=== PATIENT | male | born 1960 | race Caucasian/White ===

== ENCOUNTER 2019-05-29 11:07 | Emergency (ER) | payer MEDICARE, MEDICAID, SELFPAY ==
--- NOTE | ~2019-05-29 | XR_ITS ---
EXAMINATION: XR chest 1V portable INDICATION: Cough TECHNIQUE: Portable AP chest at 1140 hours COMPARISON: 05/16/2019 FINDINGS: A right upper extremity PICC ends in the midsuperior vena cava. There are minimal airspace opacities in the left lung base. No pleural effusion or pneumothorax is identified. The cardiomediast inal silhouette is stable. Suture anchors are noted in the bilateral glenoids. There are partially im aged surgical changes of the lumbar spine. IMPRESSION: 1. Left basilar airspace opacity, consistent with atelectasis versus pneumonia. 2. Right upper extremity PICC ending in the midsuperior vena cava. Reviewed, dictated and finalized at location B. 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
[2019-05-29 11:20] VITALS: BP 130/64; PULSE 80; RESP 18; TEMP 36.8; O2SAT 100
--- NOTE | 2019-05-29 11:20 | ED.GENADULT ---
HPI - General Adult General Chief complaint: Unspecified Stated complaint: abn lab Time Seen by Provider: 05/29/19 11:14 Source: patient Mode of arrival: ambulatory Limitations: no limitations History of Present Illness HPI narrative: Pt is a 58 y/o male who presents to the ED, secondary to abnormal labs. Pt states that he got a call from his nurse at [facility] stating that his creatinine was high and his WBC count was high and to come to the ED. He reports a cough and congestion, but denies SOB or fever. He has one kidney and he has a PICC line where he gets his TPN nightly. He states that all of his Physicians are at [place]. MD complaint: Abnormal labs Relieving factors: none Exacerbating factors: none Associated symptoms: cough and other (congestion) Treatments prior to arrival: none Related Data Allergies Allergy/AdvReac Type Severity Reaction Status Date / Time No Known Allergies Allergy Unverified 03/12/19 20:47 Review of Systems Review of Systems: All systems reviewed & are unremarkable except as noted in HPI and below Constitutional: Constitutional: Denies fever(s) Respiratory: Respiratory: Reports chest congestion, Reports cough and Denies dyspnea [facility] Past Medical History Medical History (Updated 05/29/19 @ 13:54 by Donal Liang DO) Anemia (Acute) Bowel obstruction (Acute) CAD (coronary artery disease) (Acute) Colorectal cancer (Acute) COPD (chronic obstructive pulmonary disease) (Acute) DVT (deep venous thrombosis) (Acute) Emphysema of lung (Acute) GI bleed (Acute) History of left above knee amputation (Acute) HLD (hyperlipidemia) (Acute) HTN (hypertension) (Acute) Peripheral neuropathy (Acute) Pneumonia (Acute) Prostate cancer (Acute) PVD (peripheral vascular disease) (Acute) Renal cancer (Acute) Right wrist fracture (Acute) Rotator cuff arthropathy of both shoulders (Acute) Seizure (Acute) Surgical History Surgical History (Updated 05/29/19 @ 11:40 by César Ayers) H/O bilateral cataract extraction (Acute) H/O ileostomy (Acute) H/O left nephrectomy (Acute) H/O right wrist surgery (Acute) History of cardiac catheterization (Acute) History of urethral stent (Acute) S/P PICC central line placement (Acute) Social History Social History (Updated 05/29/19 @ 11:41 by César Jarvis Smoking status: Never smoker Exam Narrative: Exam Narrative: APPEARANCE: No acute distress, nontoxic, resting in bed EYES: EOMI HEENT: Normocephalic, atraumatic, OMM RESPIRATORY: No respiratory distress Clear to auscultation bilaterally with no rhonchi wheezing or rales. CARDIOVASCULAR: Regular rate and rhythm without murmurs rubs or gallops. ABDOMINAL: Soft, nontender, nondistended, no rebound or guarding colostomy present MUSCULOSKELETAl: Moves all extremities. NEURO: Awake and alert. Following commands, speech normal, no focal deficits SKIN:: Warm, dry. No rashes lesions or abrasions PICC line right upper extremity with no signs of infection PSYCHIATRIC: Normal affect/mood, Course Course Emergency Course: Discussed with patient results of workup and diagnosis. Discussed need for follow-up with primary care, proper use of medication, and reasons to return to the emergency department. Patient understands and agrees to current treatment plan Consultations Consultation #1: Discussed case with Dr. Ramirez at [facility], pt had blood work on 05/2519 at 11:25AM that showed a creatinine of 2.3 and hemoglobin of 7.9. Believes the pt can be sent home on a Z-pack and to follow up as outpatient. Date: 05/29/19 Time: 13:42 Vital Signs Vital signs: Vital Signs Temperature 98.3 F 05/29/19 11:20 Pulse Rate 80 05/29/19 11:20 Respiratory Rate 18 05/29/19 11:20 Blood Pressure 130/64 05/29/19 11:20 Pulse Oximetry 100 05/29/19 11:20 Temperature 98.3 F 05/29/19 11:20 Pulse Rate 80 05/29/19 11:20 Respiratory Rate 18 05/29/19 11:20 Blood Pressure 130/64 05/29/19 11:20 P
[2019-05-29] MEDS: LACTATED RINGERS 1,000 ML 999 ML IV CONT (12:00)
[2019-05-29 12:13] LABS: Basophils Percent Auto 0.2 % (0.2-1.2); Eosinophils Absolute Auto 0.1 K/mm3 (0-0.3); Eosinophils Percent Auto 0.8 % (0-4.4); Hematocrit 23.9 % (42.0-52.0); Hemoglobin 7.6 g/dL (14.0-18.0); Immature Granulocyte Absolute 0.04 K/mm3 (0.00-0.031); Immature Granulocyte Percent A 0.4 % (0-0.5); Lymphocytes Absolute Auto 1.03 K/mm3 (0.9-3.2); Lymphocytes Percent Auto 10.6 % (18.3-44.2); Mean Corpuscular HGB Conc 31.8 g/dl (32-36); Mean Corpuscular Hemoglobin 27.1 pg (26-34); Mean Corpuscular Volume 85.4 fl (80-100); Mean Platelet Volume 9.8 fl (7.4-10.4); Monocytes Absolute Auto 0.5 K/mm3 (0.1-0.6); Monocytes Percent Auto 4.9 % (2.6-8.5); Neutrophils Absolute Auto 8.1 K/mm3 (1.3-6.7); Neutrophils Percent Auto 83.1 % (45.5-73.1); Platelet Count Result 289 k/mm3 (150-375); Red Cell Distribution Width 16.5 % (11.5-14.5); White Blood Count 9.7 K/mm3 (4.5-10.0)
[2019-05-29 12:23] LABS: Partial Thromboplastin Time 31.4 SECONDS (22.3-36.8); Prothrombin Time 12.8 Seconds (11.1-14.7)
[2019-05-29 12:35] LABS: Alanine Aminotransferase 13 U/L (4-50); Albumin Level 3.6 g/dL (3.5-5.1); Alkaline Phosphatase 72 U/L (38-126); Aspartate Amino Transferase 19 U/L (17-59); Bilirubin,Total 0.4 mg/dL (0.2-1.3); Blood Urea Nitrogen 35 mg/dL (9-20); Calcium 8.8 mg/dL (8.4-10.2); Carbon Dioxide 31 mmol/L (22-30); Chloride 98 mmol/L (98-107); Estimated CRCL calculation 36 ml/min; Estimated Glomerular Filt Rate 39; Glucose 103 mg/dL (75-110); Potassium 3.8 mmol/L (3.4-5.0); Sodium 136 mmol/L (137-145)
[2019-05-29 13:13] LABS: Add Urine Microscopic? YES; Appearance Urine Clear (Clear); Bilirubin Urine Negative (Negative); Blood Urine Negative (Negative); Color Urine Yellow (Yellow); Glucose Urine UA Negative (Negative); Ketones Urine Negative (Negative); Leukocyte Esterase Ur 1+ LEU/UL (Negative); Mucus Urine Rare /lpf; Nitrate Urine Negative (Negative); Protein Urine 2+ mg/dL (Negative); RBC Urine 0-2 /hpf (0-2); Specific Grav Ur 1.015 (1.001-1.035); WBC Urine 16-20
[2019-05-29] MEDS: AZITHROMYCIN 250 MG TABLET 500 MG PO (13:54)
[2019-05-29 14:01] VITALS: BP 137/75; PULSE 77; RESP 18; O2SAT 98
== END 2019-05-29 14:02 | disposition home or self-care (01) ==
PROVIDERS: Emergency Provider Emergency Medicine
DX: N28.9 Disorder of kidney and ureter, unspecified (principal); J18.9 Pneumonia, unspecified organism; D64.9 Anemia, unspecified; I25.10 Atherosclerotic heart disease of native coronary artery without angina pectoris; J44.0 Chronic obstructive pulmonary disease with (acute) lower respiratory infection; E78.5 Hyperlipidemia, unspecified; I10 Essential (primary) hypertension; G62.9 Polyneuropathy, unspecified; I73.9 Peripheral vascular disease, unspecified; Z90.5 Acquired absence of kidney
CPT/HCPCS: 36415; 71045; 80053; 81001; 85025; 85610; 85730; 87040; 87086; 96360; 99283; A9270; J7120

== ENCOUNTER 2019-07-30 15:16 | Emergency (ER) | payer MEDICARE, SELFPAY ==
--- NOTE | ~2019-07-30 | XR_ITS ---
EXAMINATION: XR chest 2V DATE: 07/30/2019 15:45 INDICATION: Cough. Decreased breath sounds on both sides. TECHNIQUE: Frontal and lateral views of the chest were obtained on 3 radiographs. COMPARISON: Chest single view 05/29/2019, CT abdomen and pelvis 05/29/2019 FINDINGS: There is mild scarring at the lung apices. A calcified right lung nodule is consistent with old granulomatous disease. No pleural effusion or pneumothorax. The heart size is normal. There is a right internal jugular central venous catheter with tip in right atrium. There are suture anchors in the scapulae bilaterally. There are changes of posterior fusion procedure in lumbar spine. There is a chronic burst fracture of L1. There are chronic compression fractures of T12 and L2. Partially visu alized is an internal ureteral stent. IMPRESSION: 1. Mild scarring at the lung apices. Reviewed, dictated and finalized at location A. ESSING SPEC
--- NOTE | 2019-07-30 15:20 | ED.GENADULT ---
HPI - General Adult General Chief complaint: Upper Respiratory Infection Stated complaint: cough/SOB Time Seen by Provider: 07/30/19 15:19 Source: patient Mode of arrival: ambulatory Limitations: no limitations History of Present Illness HPI narrative: 4-year-old male patient presents to the [facility] with complaints of cold symptoms for the past 3 to 4 days. Patient states he has had a cough coughing up some yellow mucus with some shortness of breath recently. Patient states he does take Advair daily and he has been using his albuterol inhaler for shortness of breath recently. Denies any fevers that he is aware of. Patient states that he does get pneumonia often and was already diagnosed with pneumonia twice this year. Patient states that his home health cares nurse came and checked on him and notified him that he probably needs to go get checked out and get a chest x-ray. Patient denies any runny nose ear pain sore throat. Denies any nausea vomiting or diarrhea. Related Data Home Medications Medication Instructions Recorded Confirmed amlodipine 5 mg DAILY 07/30/19 07/30/19 cyclobenzaprine 10 mg PO TID PRN 07/30/19 07/30/19 fluticasone propion-salmeterol 2 ea INHALATION DAILY 07/30/19 07/30/19 [Advair Diskus] gabapentin 300 mg TID 07/30/19 07/30/19 hydrocodone-acetaminophen 1 tablet 4-6XD PRN 07/30/19 07/30/19 prednisone 5 mg TID 07/30/19 07/30/19 tamsulosin 0.4 mg PO DAILY 07/30/19 07/30/19 Allergies Allergy/AdvReac Type Severity Reaction Status Date / Time No Known Allergies Allergy Verified 07/30/19 15:18 Review of Systems Review of Systems: Narrative: CONSTITUTIONAL: Denies fever, chills, or sweats. EYES: Denies visual changes, redness, or discharge. ENT: Denies rhinorrhea, congestion, sore throat, or otalgia. CARDIOVASCULAR: Denies chest pain, palpitations, or edema. RESPIRATORY: Positive productive cough with dyspnea. GASTROINTESTINAL: Denies abdominal pain, nausea, vomiting, or diarrhea. GENITOURINARY: Denies dysuria or hematuria. SKIN: Denies rash or itching. MUSCULOSKELETAL: Denies back pain, joint pain, or myalgia. NEUROLOGIC: Denies headache, numbness, or weakness. PSYCHIATRIC: Denies anxiety or depression. [facility] Past Medical History Medical History Anemia Anemia Bowel obstruction Bowel obstruction CAD (coronary artery disease) Chronic pain CKD (chronic kidney disease) Colorectal cancer Colorectal cancer COPD (chronic obstructive pulmonary disease) COPD (chronic obstructive pulmonary disease) DVT (deep venous thrombosis) Emphysema of lung Gangrene GI bleed History of left above knee amputation History of left above knee amputation HLD (hyperlipidemia) HTN (hypertension) 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 PAD (peripheral artery disease) Peripheral neuropathy Peripheral neuropathy Pneumonia Pneumonia Prostate CA Prostate cancer PVD (peripheral vascular disease) Renal cancer Renal cancer Right wrist fracture Rotator cuff arthropathy of both shoulders Seizure Seizure Short gut syndrome UTI (urinary tract infection) Surgical History Surgical History (Updated 05/31/19 @ 08:06 by Aimee Chavez) H/O bilateral cataract extraction H/O ileostomy H/O left nephrectomy H/O left nephrectomy H/O right wrist surgery H/O right wrist surgery H/O rotator cuff surgery History of back surgery History of cardiac catheterization History of cataract surgery History of colon resection History of urethral stent Hx of appendectomy Hx of cholecystectomy S/P PICC central line placement Social History Social History (System 05/31/19 @ 08:06 by Aimee Chavez) Smoking status: Current every day smoker Gender identity (if verbalized by the patient): Male Comments At the time of my signature I agree with nursing past medical history, surgical, social, and family history. There is no relevant family history pertinent
[2019-07-30 15:32] VITALS: BP 123/80; PULSE 96; RESP 18; TEMP 37.1; O2SAT 100
[2019-07-30 15:36] VITALS: PULSE 85; RESP 20; O2SAT 100
[2019-07-30] MEDS: ALBUTEROL SULFATE NEB 2.5 MG/3 ML INH INHALATION (15:43)
[2019-07-30] MEDS: IPRATROPIUM BR 0.02% INH SOLN 0.5 MG/2.5 ML VIAL INHALATION (15:44)
[2019-07-30 16:01] VITALS: PULSE 116; RESP 20; O2SAT 100
== END 2019-07-30 16:12 | disposition home or self-care (01) ==
PROVIDERS: Emergency Provider Nurse Practitioner Family
DX: J06.9 Acute upper respiratory infection, unspecified (principal); F17.200 Nicotine dependence, unspecified, uncomplicated; I25.10 Atherosclerotic heart disease of native coronary artery without angina pectoris; J44.9 Chronic obstructive pulmonary disease, unspecified; Z86.73 Personal history of transient ischemic attack (TIA), and cerebral infarction without residual deficits; E78.5 Hyperlipidemia, unspecified; I12.9 Hypertensive chronic kidney disease with stage 1 through stage 4 chronic kidney disease, or unspecified chronic kidney disease; N18.9 Chronic kidney disease, unspecified; Z85.038 Personal history of other malignant neoplasm of large intestine; Z85.46 Personal history of malignant neoplasm of prostate; Z85.53 Personal history of malignant neoplasm of renal pelvis; Z85.72 Personal history of non-Hodgkin lymphomas; K91.2 Postsurgical malabsorption, not elsewhere classified; I73.9 Peripheral vascular disease, unspecified; Z89.612 Acquired absence of left leg above knee
CPT/HCPCS: 71046; 94640; 99213; G0463

== ENCOUNTER 2020-01-09 16:11 | Emergency (ER) | payer MEDICARE, SELFPAY ==
[2020-01-09] VITALS (9 sets, daily range): BP systolic 72–116; BP diastolic 43–76; PULSE 71–89; RESP 17–25; TEMP 36.8–37.3; O2SAT 86–100
--- NOTE | ~2020-01-09 | XR_ITS ---
XR chest 1V portable 01/09/2020 16:37 Indication: Shortness of breath, weakness and lethargy. History of COPD. Procedure: AP portable chest Comparison: Comparison to multiple prior studies sequentially, with oldest reviewed study dated 02/25. Findings: Right IJ central venous catheter tip in the SVC. Heart size normal. Subtle interstitial dorothy nges of the right lung base. There is chronic right apical pleural thickening/scarring. No pleural ef fusion, edema or pneumothorax. Impression: 1: Subtle interstitial changes of the right lung base may represent atelectasis, scarring or less lik millicent developing pneumonia. Reviewed, dictated and finalized at location A. Impression: 1: Subtle interstitial changes of the right lung base may represent atelectasis , scarring or less likely developing pneumonia.
[2020-01-09 16:50] LABS: Hematocrit 23.6 % (42.0-52.0); Hemoglobin 7.6 g/dL (14.0-18.0); Mean Corpuscular HGB Conc 32.2 g/dl (32-36); Mean Corpuscular Hemoglobin 27.2 pg (26-34); Mean Corpuscular Volume 84.6 fl (80-100); Mean Platelet Volume 10.9 fl (7.4-10.4); Platelet Count Result 112 k/mm3 (150-375); Red Blood Count 2.79 M/mm3 (4.6-6.20); Red Cell Distribution Width 18.4 % (11.5-14.5); White Blood Count 14.9 K/mm3 (4.5-10.0)
--- NOTE | 2020-01-09 16:56 | ECG_ITS ---
Measurements Intervals Converse Rate: 89 P: 63 ND: 135 QRS: 79 QRSD: 98 T: 90 QT: 385 QTc: 468 Interpretive Statements SINUS RHYTHM INCOMPLETE RIGHT BUNDLE BRANCH BLOCK NONSPECIFIC T-WAVE ABNORMALITY- LATERAL LEADS BORDERLINE ECG Electronically Signed On 01-09-2020 18:20:49 CDT by Luis Enrique Madrigal D.O.
[2020-01-09] MEDS: SODIUM CHLORIDE 0.9% IV 1,000 ML 999 ML IV CONT ×2 (17:02→17:39)
[2020-01-09 17:04] LABS: Partial Thromboplastin Time 25.8 SECONDS (22.3-36.8)
[2020-01-09 17:06] LABS: Lactic Acid Reflex 1.7 mmol/L (0.7-2.1)
[2020-01-09 17:07] LABS: Alanine Aminotransferase 18 U/L (4-50); Albumin Level 2.6 g/dL (3.5-5.1); Alkaline Phosphatase 170 U/L (38-126); Aspartate Amino Transferase 24 U/L (17-59); Bilirubin,Total 0.5 mg/dL (0.2-1.3); Blood Urea Nitrogen 48 mg/dL (9-20); CRP 7.2 mg/dL (<1.0); Calcium 6.5 mg/dL (8.4-10.2); Carbon Dioxide 22 mmol/L (22-30); Chloride 103 mmol/L (98-107); Estimated Glomerular Filt Rate 26; Glucose 85 mg/dL (75-110); INR 1.2; Lipase 133 U/L (23-300); Prothrombin Time 14.9 Seconds (11.1-14.7); Sodium 133 mmol/L (137-145)
[2020-01-09 17:14] LABS: Anisocytosis 2+ (NORMAL); Band Neutrophils Percent 15 % (0-6); Lymphocytes Absolute Manual 0.29 K/mm3 (1.1-4.5); Monocytes Absolute Manual 0.29 K/mm3 (0.1-0.90); Monocytes Percent Manual 2 % (3-9); Neutrophils Percent Manual 81 % (46-73); Platelet Estimate Decreased (Adequate); Total Cells Counted 100
[2020-01-09 17:15] LABS: Hypochromasia 1+ (NORMAL)
--- NOTE | 2020-01-09 17:39 | ED.WEAKNESS ---
HPI - Weakness General Chief complaint: Weakness Stated complaint: WEAKNESS Time Seen by Provider: 01/09/20 16:14 History of Present Illness HPI Narrative: Patient is a 59-year-old male who presents the ER with weakness and shakiness. Shakiness began yesterday and ceased yesterday evening. It then increased today and he was markedly more weak. Reports he was ambulatory earlier in the day but not right now. Patient has history of colon cancer, he has a subclavian catheter present that he also receives TPN through him. Denies any fevers or chills at home. Reports he is currently on daptomycin and ceftriaxone for an unknown infection, reports these medicines on the med sheet are what he reports however there is also a prescription for Keflex on the chart. Patient and family had requested to go to [facility] however due to a blood pressure in the 70 systolic he must not feel comfortable with the transfer. Patient reports last night he began having a cough and continues have a cough at this time but has no dyspnea. Patient also reports emesis but denies any possible aspiration. Oncologist is Dr. You and Dr. Tsang. Related Data Home Medications Medication Instructions Recorded Confirmed amlodipine 5 mg DAILY 07/30/19 07/30/19 cyclobenzaprine 10 mg PO TID PRN 07/30/19 07/30/19 fluticasone propion-salmeterol 2 ea INHALATION DAILY 07/30/19 07/30/19 [Advair Diskus] gabapentin 300 mg TID 07/30/19 07/30/19 hydrocodone-acetaminophen 1 tablet 4-6XD PRN 07/30/19 07/30/19 prednisone 5 mg TID 07/30/19 07/30/19 tamsulosin 0.4 mg PO DAILY 07/30/19 07/30/19 alprazolam 01/09/20 01/09/20 cephalexin 01/09/20 prochlorperazine maleate 01/09/20 Allergies Allergy/AdvReac Type Severity Reaction Status Date / Time oxycodone AdvReac Agitated Verified 01/09/20 17:22 Review of Systems Review of Systems: All systems reviewed & are unremarkable except as noted in HPI and below Constitutional: Constitutional: Reports chills, Denies fever(s) and Reports weakness ENT: Denies nasal congestion and Denies sore throat Respiratory: Respiratory: Reports cough, Denies dyspnea and Denies wheezing Gastrointestinal: Gastrointestinal: Denies abdominal pain, Denies diarrhea, Reports nausea and Reports vomiting PMFSH Surgical History Surgical History (Updated 05/31/19 @ 08:06 by Aimee Chavez) H/O bilateral cataract extraction H/O ileostomy H/O left nephrectomy H/O left nephrectomy H/O right wrist surgery H/O right wrist surgery H/O rotator cuff surgery History of back surgery History of cardiac catheterization History of cataract surgery History of colon resection History of urethral stent Hx of appendectomy Hx of cholecystectomy S/P PICC central line placement Social History Social History (System 05/31/19 @ 08:06 by Aimee Chavez) Smoking status: Current every day smoker Gender identity (if verbalized by the patient): Male Exam Narrative: Exam Narrative: GENERAL: Ill-appearing, well-nourished, and in no acute distress. HEAD: Normocephalic, atraumatic. EYES: PERRL and EOMI. ENT: Mucous membranes moist. CHEST: Clear to auscultation. No respiratory distress. Right subclavian catheter present without evidence of surrounding infection. HEART: Regular rate and rhythm. Normal peripheral pulses. ABDOMEN: Soft, nontender, nondistended, ileostomy present in the left lower quadrant, palpable pain stimulator in the right lower quadrant. EXTREMITIES: Normal range of motion. No edema. Left AKA. SKIN: Warm, dry, no rash. NEURO: Alert and oriented x3. Course Reevaluation(s) Reevaluation #1: Blood pressure responding to IV fluid and patient feels better but blood pressure is not yet normalized. Discussed case with Gavin the nurse practitioner at [facility] in ICU. She has accepted the patient on behalf of Dr. Fritz. In the interim we will start the patient on vancomycin, give him IV calcium gluconate for his hyp
[2020-01-09 18:56] LABS: Add Urine Microscopic? YES; Amorphous Sediment Urine Few; Appearance Urine Clear (Clear); Bacteria Urine Trace /hpf; Bilirubin Urine Negative (Negative); Blood Urine 2+ (Negative); Color Urine Yellow (Yellow); Glucose Urine UA Negative (Negative); Ketones Urine Negative (Negative); Leukocyte Esterase Ur 3+ LEU/UL (Negative); Nitrate Urine Negative (Negative); Protein Urine 3+ mg/dL (Negative); Specific Grav Ur 1.015 (1.001-1.035); Squamous Epithelial Cell Urine Rare /hpf (Few); Urobilinogen Urine Negative mg/dL (<2.0); WBC Urine 16-20 /hpf
[2020-01-09] MEDS: CALCIUM GLUCONATE 1,000 MG/10 ML VIAL 1000 MG IV PUSH (18:57)
[2020-01-09] MEDS: NOREPINEPHRINE 8 MG/D5W 250 ML 8 MG/250 ML BAG 9.4 MG IV CONT (19:07)
[2020-01-09] MEDS: POTASSIUM CHLORIDE 20 MEQ PACKET (FOR LIQUID) 40 MEQ PO (19:27)
--- NOTE | 2020-01-09 20:16 | PC.NURSE ---
Spoke with [facility] transfer line patient accepted to room 7889
--- NOTE | 2020-01-09 20:18 | PC.NURSE ---
attempted to call nurse report, floor RN to call me back
--- NOTE | 2020-01-09 22:30 | PC.NURSE ---
Pt left by [facility] with levophed running
== END 2020-01-09 22:30 | disposition short-term general hospital (02) ==
PROVIDERS: Emergency Provider Emergency Medicine
DX: A41.9 Sepsis, unspecified organism (principal); E83.51 Hypocalcemia; E87.6 Hypokalemia; N17.9 Acute kidney failure, unspecified; N18.9 Chronic kidney disease, unspecified; I12.9 Hypertensive chronic kidney disease with stage 1 through stage 4 chronic kidney disease, or unspecified chronic kidney disease; I45.10 Unspecified right bundle-branch block; R94.31 Abnormal electrocardiogram [ECG] [EKG]; Z98.42 Cataract extraction status, left eye; Z98.41 Cataract extraction status, right eye; Z90.5 Acquired absence of kidney; Z90.49 Acquired absence of other specified parts of digestive tract; Z85.038 Personal history of other malignant neoplasm of large intestine; Z93.2 Ileostomy status; J43.9 Emphysema, unspecified; D64.9 Anemia, unspecified
CPT/HCPCS: 36415; 51701; 71045; 80053; 81001; 83605; 83690; 85025; 85610; 85730; 86140; 87040; 87077; 87086; 87186; 93005; 96361; 96365; 96366; 96367; 96375; 99291; A9270; J0610; J3370; J7030

== ENCOUNTER 2020-03-02 06:41 | Emergency (ER) | payer MEDICARE, SELFPAY ==
[2020-03-02] VITALS (18 sets, daily range): BP systolic 91–131; BP diastolic 58–106; PULSE 81–126; RESP 15–23; TEMP 36.4; O2SAT 93–100
--- NOTE | ~2020-03-02 | CT_ITS ---
EXAMINATION: CT abdomen pelvis wo con DATE: 03/02/2020 08:46 INDICATION: Abdominal pain. Vomiting. TECHNIQUE: Computed tomography (CT) of the abdomen and pelvis was performed without intravenous contr ast. Automated exposure control and iterative reconstruction technique were employed. The dose-length product was 975.20 mGy-cm. COMPARISON: CT abdomen and pelvis 01/26/2019, chest 2 views 07/30/2019 FINDINGS: The visualized portions of the lung bases demonstrate mild atelectasis. No pleural effusion . The heart size is normal. There are coronary artery calcifications. No pericardial effusion. There is diffuse hepatic steatosis. There are changes of cholecystectomy. Calcifications in the spleen are consistent with old granulomatous disease. The pancreas and adrenal glands and right kidney are edita l. There is a right internal ureteral stent in expected position. There is severe atrophy of left kid nohemy. There are changes of partial colectomy. There is an ostomy in left abdomen. There are no dilated loops of bowel. The appendix is not visualized. There are no pathologically enlarged lymph nodes. Th ere is no free intraperitoneal fluid. An intrathecal catheter is noted. There are changes of posterio r fusion procedures at L1-L2 and L5-S1 with pedicle screws. There is a chronic compression fracture o f T12. There are chronic burst fractures of L1 and L2. There is a burst fracture of T10 with 1/5 loss of height. IMPRESSION: 1. Diffuse hepatic steatosis. 2. Right internal ureteral stent in expected position. 3. Severe atrophy of left kidney. 4. Age indeterminant burst fracture of T10, new from 07/30/2019. Reviewed, dictated and finalized at location A.
--- NOTE | ~2020-03-02 | CT_ITS ---
EXAMINATION: CT cervical spine wo con DATE: 03/02/2020 08:46 INDICATION: Neck pain TECHNIQUE: Computed tomography (CT) of the cervical spine was performed without intravenous contrast. The dose-length product (DLP) was 408.52 mGy-cm. Automated exposure control and iterative reconstruc tion technique were employed. COMPARISON: None FINDINGS: There is no fracture. There are 2 mm of retrolisthesis of C5 on C6. There is moderate loss of intervertebral disc space height at C5-6, C6-7, and C7-T1. The odontoid is intact. The vertebral b gay heights are maintained. Degenerative osteophytes project from the anterior endplates of multiple vertebral bodies. There is a moderate facet and uncovertebral joint osteoarthritis of the lower cervi jaime spine. Prevertebral soft tissues are normal. Calcified atherosclerosis is noted. IMPRESSION: 1. Moderate cervical spondylosis without acute findings. Reviewed, dictated and finalized at location A.
--- NOTE | ~2020-03-02 | XR_ITS ---
EXAMINATION: XR chest 1V portable INDICATION: Assess position of pre-existing central line TECHNIQUE: Portable AP chest at 0725 hours COMPARISON: 01/09/2020 FINDINGS: A right internal jugular central venous catheter ends with its tip in the distal superior v sarah cava. The lungs are free of acute opacities. There is no pleural effusion or pneumothorax. Surgic al changes are noted in the left upper quadrant. There are also partially imaged changes of lumbar fu jyoti. IMPRESSION: 1. Right internal jugular central venous catheter ending with its tip in the distal superior vena cav a. 2. No acute cardiopulmonary abnormality. Reviewed, dictated and finalized at location A. IMPRESSION: 1. Right internal jugular central venous catheter ending with its tip in the di stal superior vena cava. 2. No acute cardiopulmonary abnormality.
--- NOTE | 2020-03-02 07:03 | ED.NAVMDI ---
HPI - Nausea/Vomiting/Diarrhea General Chief complaint: Nausea/Vomiting/Diarrhea Stated complaint: blocked ostomy bag Time Seen by Provider: 03/02/20 07:02 Source: patient and EMS Mode of arrival: EMS Limitations: no limitations History of Present Illness HPI Narrative: Patient is a 59-year-old male with a history of colon cancer who presents for evaluation of abdominal pain. Patient reports generalized, cramping abdominal pain throughout his middle abdomen, radiating to both sides. He denies back pain. He reports initially he thought that his ostomy may be clogged, but has had diarrhea like output through the ostomy over the past 12 hours. He reports some mild abdominal distention. Patient denies any fever, cough or shortness of breath. He states he feels diffusely weak. He denies any chest pain. No palpitations. Patient receives TPN and chemotherapy at [facility], he was last hospitalized a month ago for hypokalemia and renal failure per chart review. Pt oncology team Dr. Hayes and Dr. Tsang. Related Data Home Medications Medication Instructions Recorded Confirmed amlodipine 5 mg DAILY 07/30/19 07/30/19 cyclobenzaprine 10 mg PO TID PRN 07/30/19 07/30/19 fluticasone propion-salmeterol 2 ea INHALATION DAILY 07/30/19 07/30/19 [Advair Diskus] gabapentin 300 mg TID 07/30/19 07/30/19 hydrocodone-acetaminophen 1 tablet 4-6XD PRN 07/30/19 07/30/19 prednisone 5 mg TID 07/30/19 07/30/19 tamsulosin 0.4 mg PO DAILY 07/30/19 07/30/19 alprazolam 01/09/20 01/09/20 cephalexin 01/09/20 prochlorperazine maleate 01/09/20 Allergies Allergy/AdvReac Type Severity Reaction Status Date / Time oxycodone AdvReac Agitated Verified 03/02/20 07:03 Review of Systems Review of Systems: Narrative: CONSTITUTIONAL: Denies fever chills EYES: Denies visual changes, redness, or discharge. ENT: Denies rhinorrhea, congestion, sore throat, or otalgia. CARDIOVASCULAR: Denies chest pain, palpitations, or edema. RESPIRATORY: Denies cough or dyspnea. GASTROINTESTINAL: Reports abdominal pain, nausea, vomiting and diarrhea GENITOURINARY: Denies dysuria or hematuria. SKIN: Denies rash or itching. MUSCULOSKELETAL: Denies back pain, joint pain, or myalgia. NEUROLOGIC: Denies headache, numbness, reports feeling diffusely weak. 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 PAD (peripheral artery disease) Peripheral neuropathy Peripheral neuropathy Pneumonia Pneumonia Prostate CA Prostate cancer PVD (peripheral vascular disease) Renal cancer Renal cancer Right wrist fracture Rotator cuff arthropathy of both shoulders Seizure Seizure Short gut syndrome UTI (urinary tract infection) Surgical History Surgical History H/O bilateral cataract extraction H/O ileostomy H/O left nephrectomy H/O left nephrectomy H/O right wrist surgery H/O right wrist surgery H/O rotator cuff surgery History of back surgery History of cardiac catheterization History of cataract surgery History of colon resection History of urethral stent Hx of appendectomy Hx of cholecystectomy S/P PICC central line placement Social History Social History Smoking status: Current every day smoker Gender identity (if verbalized by the patient): Male Exam Narrative: Exam Narrative: GENERAL: Awake, alert, chronically ill-appea
--- NOTE | 2020-03-02 07:09 | PC.NURSE ---
ASSUMED CARE FROM CARMEN BA AT THIS TIME.
--- NOTE | 2020-03-02 07:17 | PC.NURSE ---
VERBAL ORDER FOR LACTIC AND CULTURES TO BE ADDED ON W/ CHEST XRAY TO CHECK CENTRAL LINE PLACEMENT PRIOR TO BLOOD DRAW.
--- NOTE | 2020-03-02 07:21 | PC.NURSE ---
SPOKE WITH CAROL FROM RADIOLOGY WHO STATES THEY WILL BE DOWN TO SCAN PT CHEST SUKHDEV.
--- NOTE | 2020-03-02 07:24 | PC.NURSE ---
RADIOLOGY AT BEDSIDE.
--- NOTE | 2020-03-02 07:32 | PC.NURSE ---
VERBAL ORDER FROM ERP BERTELS TO UTILIZE CENTRAL LINE.
[2020-03-02] MEDS: ONDANSETRON INJ 4 MG/2 ML VIAL IV PUSH ×2 (07:45→14:08)
[2020-03-02] MEDS: SODIUM CHLORIDE 0.9% IV 1,000 ML 999 ML IV CONT (07:45)
--- NOTE | 2020-03-02 07:47 | PC.NURSE ---
pt reminded of need for urine sample, verbalized that he will attempt to give one, urinal at bedside, refusing cath at this time.
[2020-03-02 07:56] LABS: Basophils Absolute Auto 0.1 K/mm3 (0.0-0.1); Basophils Percent Auto 0.4 % (0.2-1.2); Eosinophils Absolute Auto 0.3 K/mm3 (0-0.3); Eosinophils Percent Auto 1.8 % (0-4.4); Hemoglobin 11.8 g/dL (14.0-18.0); Immature Granulocyte Percent A 0.7 % (0-0.5); Lymphocytes Absolute Auto 3.07 K/mm3 (0.9-3.2); Mean Corpuscular HGB Conc 32.8 g/dl (32-36); Mean Corpuscular Hemoglobin 27.9 pg (26-34); Mean Corpuscular Volume 85.1 fl (80-100); Mean Platelet Volume 10.8 fl (7.4-10.4); Monocytes Absolute Auto 1.1 K/mm3 (0.1-0.6); Monocytes Percent Auto 7.2 % (2.6-8.5); Neutrophils Absolute Auto 10.7 K/mm3 (1.3-6.7); Neutrophils Percent Auto 69.9 % (45.5-73.1); Platelet Count Result 278 k/mm3 (150-375); Red Blood Count 4.23 M/mm3 (4.6-6.20); Red Cell Distribution Width 19.4 % (11.5-14.5); White Blood Count 15.3 K/mm3 (4.5-10.0)
--- NOTE | 2020-03-02 08:00 | PC.NURSE ---
pt unable to provide specimen, agrees to straight cath at this time.
[2020-03-02 08:09] LABS: Alanine Aminotransferase 48 U/L (4-50); Alkaline Phosphatase 130 U/L (38-126); Anion Gap 11 mmol/L (8-16); Aspartate Amino Transferase 48 U/L (17-59); Bilirubin,Total 0.7 mg/dL (0.2-1.3); Blood Urea Nitrogen 56 mg/dL (9-20); Calcium 9.4 mg/dL (8.4-10.2); Carbon Dioxide 27 mmol/L (22-30); Chloride 96 mmol/L (98-107); Estimated CRCL calculation 18 ml/min; Estimated Glomerular Filt Rate 15; Glucose 151 mg/dL (75-110); Lactic Acid Reflex 1.8 mmol/L (0.7-2.1); Lipase 131 U/L (23-300); Potassium 3.8 mmol/L (3.4-5.0); Sodium 134 mmol/L (137-145)
[2020-03-02 09:09] LABS: Add Urine Microscopic? YES; Appearance Urine Cloudy (Clear); Bacteria Urine 3+ /hpf; Bilirubin Urine Negative (Negative); Blood Urine 2+ (Negative); Color Urine Amber (Yellow); Glucose Urine UA Negative (Negative); Ketones Urine Negative (Negative); Leukocyte Esterase Ur 2+ LEU/UL (Negative); Nitrate Urine Negative (Negative); Protein Urine 3+ mg/dL (Negative); RBC Urine 21-50 /hpf (0-2); Specific Grav Ur 1.026 (1.001-1.035); Squamous Epithelial Cell Urine Occasional /hpf (Few); Urobilinogen Urine Negative mg/dL (<2.0); WBC Urine 31-50 /hpf
--- NOTE | 2020-03-02 10:21 | PC.NURSE ---
VERBAL OKAY PER ERP BERTELS TO GIVE PT ICE CHIPS.
--- NOTE | 2020-03-02 10:23 | PC.NURSE ---
SPOKE WITH ROB SANCHES ABOUT NOREPINEPHRINE ORDER, ERP STATES MED CAN GO THROUGH PT CENTRAL LINE ACCESS.
[2020-03-02] MEDS: NOREPINEPHRINE 8 MG/D5W 250 ML 8 MG/250 ML BAG 9.4 MG IV CONT (10:35)
--- NOTE | 2020-03-02 11:10 | PC.NURSE ---
ERP INFORMED THAT PT IS C/O INCREASING PAIN, VERBAL ORDER FOR 0.5 MG DILAUDID IVP STAT, STATES SHE WILL TRY AND COME IN TO SEE PT SUKHDEV.
[2020-03-02] MEDS: LINEZOLID 600 MG/300 ML 600 MG/300 ML SOLN 300 MG IVPB (15:18)
--- NOTE | 2020-03-02 15:43 | PC.NURSE ---
spoke with [facility] transfer line, awaiting room number at this time.
[2020-03-02] MEDS: SODIUM CHLORIDE 0.9% IV 1,000 ML 150 ML IV CONT (16:41)
--- NOTE | 2020-03-02 17:56 | PC.NURSE ---
SPOKE WITH ROB SANCHES ABOUT FEEDING PT, STATES THAT PT CAN HAVE JELLO AT THIS TIME, AND WE CAN SEE HOW HE DOES. PT PROVIDED JELLO.
--- NOTE | 2020-03-02 18:30 | PC.NURSE ---
PT HR NOTED TO BE 120-130, ERP BERTELS AWARE, VERBAL ORDER TO D/C THE LEVOPHED. PT A&OX3, NO COMPLAINTS.
== END 2020-03-02 18:57 | disposition short-term general hospital (02) ==
PROVIDERS: Emergency Provider Emergency Medicine
DX: C18.9 Malignant neoplasm of colon, unspecified (principal); N39.0 Urinary tract infection, site not specified; N17.9 Acute kidney failure, unspecified; S22.001A Stable burst fracture of unspecified thoracic vertebra, initial encounter for closed fracture; I12.9 Hypertensive chronic kidney disease with stage 1 through stage 4 chronic kidney disease, or unspecified chronic kidney disease; N18.9 Chronic kidney disease, unspecified; D64.9 Anemia, unspecified; J43.9 Emphysema, unspecified; I25.10 Atherosclerotic heart disease of native coronary artery without angina pectoris; Z89.612 Acquired absence of left leg above knee; E78.5 Hyperlipidemia, unspecified; Z93.2 Ileostomy status; I73.9 Peripheral vascular disease, unspecified; Z85.46 Personal history of malignant neoplasm of prostate; Z85.528 Personal history of other malignant neoplasm of kidney; Z87.440 Personal history of urinary (tract) infections; M47.812 Spondylosis without myelopathy or radiculopathy, cervical region; K76.0 Fatty (change of) liver, not elsewhere classified; X58.XXXA Exposure to other specified factors, initial encounter
CPT/HCPCS: 36415; 71045; 72125; 74176; 80053; 81001; 83605; 83690; 85025; 87040; 87086; 87088; 96361; 96365; 96366; 96367; 96368; 96375; 96376; 99291; J0692; J0696; J1170; J2020; J2405; J7030

== ENCOUNTER 2020-05-01 15:14 | Emergency (ER) | payer MEDICARE, SELFPAY ==
--- NOTE | ~2020-05-01 | CT_ITS ---
EXAMINATION: CT abdomen pelvis wo con DATE: 05/01/2020 20:13 INDICATION: Abdomen pain and vomiting TECHNIQUE: Computed tomography (CT) of the abdomen and pelvis was performed without intravenous contr ast. The dose-length product was 934.46 mGy-cm. Automated exposure control and iterative reconstructi on technique were employed. COMPARISON: CT dated 03/02/2020. FINDINGS: There are multiple fluid-filled distended small bowel loops in the abdomen and pelvis witho ut definitive transition point. There is a right internal ureteral stent in expected position. Lung bases are unremarkable. No pleural or pericardial effusion. Heart size normal. There are changes of cholecystectomy. Hepatomegaly. Calcifications in the spleen, consistent with chronic granulomatou s disease. There are changes of partial colectomy. There is an ostomy in the left abdomen. There are changes of posterior fusion at L1-2 L5-S1 with chronic compression fracture of T12 burst fracture of L1 and L2. There is a burst fracture of T10 partially visualized. There is a 3 cm infrarenal abdomina l aortic aneurysm. Extensive atherosclerosis. There is severe atrophy of the left kidney with coarse calcifications IMPRESSION: 1. Multiple fluid-filled distended small bowel loops of the abdomen and pelvis without definitive tra nsition point, most likely ileus. Partial obstruction less favored. 2: Hepatomegaly. Reviewed, dictated and finalized at location A. IMPRESSION: 1. Multiple fluid-filled distended small bowel loops of the abdomen and pelvis without definitive transition point, most likely ileus. Partial obstruction les s favored. 2: Hepatomegaly.
[2020-05-01 15:17] VITALS: BP 161/85; PULSE 95; RESP 18; TEMP 36.5; O2SAT 100
--- NOTE | 2020-05-01 15:24 | PC.NURSE ---
Patient states that he has two ports in his upper chest, patient declines blood draw in triage at this time.
--- NOTE | 2020-05-01 16:48 | PC.NURSE ---
Pt on phone with , on speaker, able to hear state chest tell them you have chest pain, they have to get you right back! That's ridiculous that you wait when you come by ambulance . Again explained to patient that the rooms are assigned by illness and sickest get evaluated first. This RN asked patient if he had chest pain and pt denies chest pain. Noted to be drinking water. Explained if patient feels he has a bowel obstruction that he shouldn't be drinking fluids.
--- NOTE | 2020-05-01 17:10 | PC.NURSE ---
Pt complaining loudly I'm going to fall, my back is killing me, I'm dizzy . Security immediately over to stand by the patient for safety. Pt brought to triage and EKG done. Pt states he is unable to sit any longer because his back is hurting and requests to stay in the triage chair. Explained that this is not reasonable due to multiple people in and out. Offered family services room and after EKG reviewed pt to family services room couch to lie down.
--- NOTE | 2020-05-01 17:11 | ECG_ITS ---
Measurements Intervals [place] Rate: 89 P: 73 OK: 155 QRS: 84 QRSD: 98 T: 133 QT: 387 QTc: 473 Interpretive Statements SINUS RHYTHM POSSIBLE LEFT ATRIAL ENLARGEMENT INCOMPLETE RIGHT BUNDLE BRANCH BLOCK DELAYED PRECORDIAL R/S TRANSITION BORDERLINE ST-T WAVE ABNORMALITY- DIFFUSE LEADS BASELINE ARTIFACT- I, III, AVR, AVL, V6 BORDERLINE ECG Electronically Signed On 05-01-2020 19:10:50 CDT by Luis Enrique Madrigal D.O.
--- NOTE | 2020-05-01 17:11 | PC.NURSE ---
Patient notified this RN that he was feeling dizzy, EKG ordered and completed in triage at this time.
[2020-05-01 17:20] VITALS: BP 158/79; PULSE 98; RESP 22; O2SAT 99
[2020-05-01 19:16] VITALS: BP 144/71; PULSE 90; RESP 20; O2SAT 99
[2020-05-01 19:31] LABS: Basophils Absolute Auto 0.1 K/mm3 (0.0-0.1); Basophils Percent Auto 0.7 % (0.2-1.2); Eosinophils Absolute Auto 0.5 K/mm3 (0-0.3); Eosinophils Percent Auto 5.2 % (0-4.4); Hematocrit 35.1 % (42.0-52.0); Hemoglobin 11.3 g/dL (14.0-18.0); Immature Granulocyte Absolute 0.04 K/mm3 (0.00-0.031); Immature Granulocyte Percent A 0.5 % (0-0.5); Lymphocytes Absolute Auto 2.04 K/mm3 (0.9-3.2); Mean Corpuscular HGB Conc 32.2 g/dl (32-36); Mean Corpuscular Hemoglobin 26.8 pg (26-34); Mean Corpuscular Volume 83.2 fl (80-100); Mean Platelet Volume 9.6 fl (7.4-10.4); Monocytes Percent Auto 11.5 % (2.6-8.5); Neutrophils Absolute Auto 5.3 K/mm3 (1.3-6.7); Neutrophils Percent Auto 59.1 % (45.5-73.1); Platelet Count Result 299 k/mm3 (150-375); Red Blood Count 4.22 M/mm3 (4.6-6.20); Red Cell Distribution Width 16.4 % (11.5-14.5); White Blood Count 8.9 K/mm3 (4.5-10.0)
[2020-05-01 19:43] LABS: Alanine Aminotransferase 41 U/L (4-50); Albumin Level 4.3 g/dL (3.5-5.1); Alkaline Phosphatase 103 U/L (38-126); Anion Gap 12 mmol/L (8-16); Aspartate Amino Transferase 44 U/L (17-59); Bilirubin,Total 0.5 mg/dL (0.2-1.3); Blood Urea Nitrogen 42 mg/dL (9-20); Carbon Dioxide 34 mmol/L (22-30); Chloride 96 mmol/L (98-107); Estimated CRCL calculation 28 ml/min; Estimated Glomerular Filt Rate 23; Glucose 118 mg/dL (75-110); Lipase 157 U/L (23-300); Potassium 3.4 mmol/L (3.4-5.0); Sodium 142 mmol/L (137-145)
[2020-05-01] MEDS: PROMETHAZINE HCL 25 MG/ML AMPUL 12.5 MG IV PUSH (20:03)
[2020-05-01] MEDS: SODIUM CHLORIDE 0.9% IV 1,000 ML 999 ML IV CONT (20:03)
[2020-05-01] MEDS: fentaNYL CITRATE INJ (*CRX) 100 MCG/2 ML VIAL 50 MCG IV PUSH (20:03)
[2020-05-01 21:17] VITALS: BP 143/85; PULSE 86; RESP 18; O2SAT 98
--- NOTE | 2020-05-01 21:22 | ED.NAVMDI ---
HPI - Nausea/Vomiting/Diarrhea General Chief complaint: Nausea/Vomiting/Diarrhea Stated complaint: n/v/weakness Time Seen by Provider: 05/01/20 19:25 History of Present Illness HPI Narrative: Patient is a 59-year-old male who presents ER with nausea and vomiting. Ongoing for the last week. Has history of ileostomy due to colon cancer. Has had history of bowel obstruction. Concerned this may be related. He has no abdominal distention. He does have some crampy abdominal pain. She reports normal output from his ostomy bag. No fevers or chills or sweats. No known sick contacts. No blood in his stool or emesis. Patient contacted his oncologist to reported he should go to the ER. Related Data Home Medications Medication Instructions Recorded Confirmed amlodipine 5 mg DAILY 07/30/19 07/30/19 cyclobenzaprine 10 mg PO TID PRN 07/30/19 07/30/19 fluticasone propion-salmeterol 2 ea INHALATION DAILY 07/30/19 07/30/19 [Advair Diskus] gabapentin 300 mg TID 07/30/19 07/30/19 hydrocodone-acetaminophen 1 tablet 4-6XD PRN 07/30/19 07/30/19 prednisone 5 mg TID 07/30/19 07/30/19 tamsulosin 0.4 mg PO DAILY 07/30/19 07/30/19 alprazolam 01/09/20 01/09/20 cephalexin 01/09/20 prochlorperazine maleate 01/09/20 Allergies Allergy/AdvReac Type Severity Reaction Status Date / Time oxycodone AdvReac Agitated Verified 03/02/20 07:03 Review of Systems Review of Systems: All systems reviewed & are unremarkable except as noted in HPI and below Constitutional: Constitutional: Denies chills, Denies fever(s) and Denies weakness ENT: Denies nasal congestion and Denies sore throat Respiratory: Respiratory: Denies cough and Denies dyspnea Gastrointestinal: Gastrointestinal: Reports abdominal pain, Denies bloating, Reports nausea and Reports vomiting PMFSH Past Medical History Medical History (Updated 05/01/20 @ 22:30 by Bassem Mercado MD) Anemia Anemia Bowel obstruction Bowel obstruction CAD (coronary artery disease) Chronic pain CKD (chronic kidney disease) Colorectal cancer Colorectal cancer COPD (chronic obstructive pulmonary disease) COPD (chronic obstructive pulmonary disease) DVT (deep venous thrombosis) Emphysema of lung Gangrene GI bleed History of left above knee amputation History of left above knee amputation HLD (hyperlipidemia) HTN (hypertension) 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 PAD (peripheral artery disease) Peripheral neuropathy Peripheral neuropathy Pneumonia Pneumonia Prostate CA Prostate cancer PVD (peripheral vascular disease) Renal cancer Renal cancer Right wrist fracture Rotator cuff arthropathy of both shoulders Seizure Seizure Short gut syndrome UTI (urinary tract infection) Surgical History Surgical History H/O bilateral cataract extraction H/O ileostomy H/O left nephrectomy H/O left nephrectomy H/O right wrist surgery H/O right wrist surgery H/O rotator cuff surgery History of back surgery History of cardiac catheterization History of cataract surgery History of colon resection History of urethral stent Hx of appendectomy Hx of cholecystectomy S/P PICC central line placement Social History Social History Smoking status: Current every day smoker Gender identity (if verbalized by the patient): Male Exam Narrative: Exam Narrative: GENERAL: Well-appearing, well-nourished, and in no acute distress. HEAD: Normocephalic, atraumatic. ENT: Mucous membranes moist. CHEST: Clear to auscultation. No respiratory distress. HEART: Regular rate and rhythm. Normal peripheral pulses. ABDOMEN: Soft, mild lower abdominal discomfort without guarding, liquid stool in ostomy bag. EXTREMITIES: Normal range of motion. No edema. SKIN: Warm, dry, no rash. NEURO: Alert and oriented x3. PSYCH: Normal mood and affect. Course Course Emergency Course: Discussed case with Mg
--- NOTE | 2020-05-01 22:31 | PC.NURSE ---
yakov excepted patient will call back when we have a bed.
[2020-05-02] VITALS (14 sets, daily range): BP systolic 99–188; BP diastolic 66–93; PULSE 72–94; RESP 16–20; TEMP 36.2–37.2; O2SAT 90–96
[2020-05-02 01:02] LABS: Add Urine Microscopic? YES; Appearance Urine Cloudy (Clear); Bacteria Urine 1+ /hpf; Bilirubin Urine Negative (Negative); Blood Urine 1+ (Negative); Color Urine Yellow (Yellow); Glucose Urine UA Negative (Negative); Hyaline Casts Urine 20-29 /lpf; Ketones Urine Negative (Negative); Leukocyte Esterase Ur 3+ LEU/UL (Negative); Mucus Urine Moderate /lpf; Nitrate Urine Negative (Negative); Protein Urine 3+ mg/dL (Negative); RBC Urine 21-50 /hpf (0-2); Specific Grav Ur 1.023 (1.001-1.035); Squamous Epithelial Cell Urine Many /hpf (Few); Urobilinogen Urine Negative mg/dL (<2.0); WBC Urine >75 /hpf
[2020-05-02] MEDS: ONDANSETRON INJ 4 MG/2 ML VIAL IV PUSH ×4 (01:10→15:14)
[2020-05-02] MEDS: fentaNYL CITRATE INJ (*CRX) 100 MCG/2 ML VIAL 50 MCG IV PUSH ×4 (01:11→21:00)
[2020-05-02] MEDS: SODIUM CHLORIDE 0.9% IV 1,000 ML 125 ML IV CONT ×2 (05:55→15:25)
--- NOTE | 2020-05-02 05:55 | PC.NURSE ---
patient moved to room 8 and placed on hospital bed for comfort
--- NOTE | 2020-05-02 13:21 | PC.NURSE ---
Patient's called and requested update. Patient states ok to speak with her on the phone. Patient's was updated at this time.
--- NOTE | 2020-05-02 15:45 | PC.NURSE ---
Talked with nurse from [facility] at this time. She stated we don't have a bed at this time, but I will let you know as soon as I do .
--- NOTE | 2020-05-02 19:39 | PC.NURSE ---
Called to give report to [facility], they requested our number and are to call back for report as soon as they are available.
--- NOTE | 2020-05-02 20:04 | PC.NURSE ---
[facility] called for transfer @ 1951 [facility] declined transfer @ 1999 [facility] accepted transfer @ 2002 ETA: [id number] Trip # [id number]
--- NOTE | 2020-05-02 21:26 | PC.NURSE ---
[facility] [id number] called and notified of patient ETA to their facility at this time.
== END 2020-05-02 21:07 | disposition short-term general hospital (02) ==
PROVIDERS: Emergency Medicine; Emergency Provider Emergency Medicine
DX: N17.9 Acute kidney failure, unspecified (principal); K56.7 Ileus, unspecified; Z93.2 Ileostomy status; I12.9 Hypertensive chronic kidney disease with stage 1 through stage 4 chronic kidney disease, or unspecified chronic kidney disease; N18.9 Chronic kidney disease, unspecified; I25.10 Atherosclerotic heart disease of native coronary artery without angina pectoris; J43.9 Emphysema, unspecified; Z89.612 Acquired absence of left leg above knee; E78.5 Hyperlipidemia, unspecified; I73.9 Peripheral vascular disease, unspecified; D64.9 Anemia, unspecified; G62.9 Polyneuropathy, unspecified; Z85.038 Personal history of other malignant neoplasm of large intestine; Z85.46 Personal history of malignant neoplasm of prostate; Z85.528 Personal history of other malignant neoplasm of kidney; Z86.718 Personal history of other venous thrombosis and embolism; Z87.440 Personal history of urinary (tract) infections; R94.31 Abnormal electrocardiogram [ECG] [EKG]; I45.10 Unspecified right bundle-branch block; R16.0 Hepatomegaly, not elsewhere classified; Z98.42 Cataract extraction status, left eye; Z98.41 Cataract extraction status, right eye; Z90.5 Acquired absence of kidney; Z90.49 Acquired absence of other specified parts of digestive tract; R82.998 Other abnormal findings in urine
CPT/HCPCS: 36415; 51701; 74176; 80053; 81001; 83690; 85025; 87086; 93005; 96361; 96374; 96375; 96376; 99285; J2405; J2550; J3010; J7030

== ENCOUNTER 2020-08-31 14:24 | Observation (INO) | payer MEDICARE, SELFPAY ==
--- NOTE | ~2020-08-31 | US_ITS ---
EXAMINATION: US venous doppler LE RT DATE: 08/31/2020 17:31 INDICATION: Right lower limb swelling TECHNIQUE: Membreno scale images without and with compression and Doppler images of the right lower extre mity veins were obtained. COMPARISON: None FINDINGS: The right common femoral vein, profunda femoral vein, femoral vein, popliteal vein, peronea l trunk, posterior tibial veins, and greater saphenous vein are patent. IMPRESSION: 1. Patent right lower extremity veins. No evidence of deep venous thrombosis. Reviewed, dictated and finalized at location A. HOUSE WORKER
--- NOTE | ~2020-08-31 | XR_ITS ---
EXAMINATION: XR ankle RT min 3V INDICATION: Right ankle pain and swelling TECHNIQUE: Four views of the right ankle are obtained. COMPARISON: None available FINDINGS: There is soft tissue swelling of the ankle. Bone alignment is normal. There is subtle heter otopic ossification distal to the medial malleolus. Calcified atherosclerosis is noted. IMPRESSION: 1. Heterotopic ossification distal to the medial malleolus which could reflect avulsion injury. Recom mend clinical correlation for tenderness at this site. Reviewed, dictated and finalized at location A. K DRIVING IMPRESSION: 1. Heterotopic ossification distal to the medial malleolus which could reflect avulsion injury. Recommend clinical correlation for tenderness at this site.
--- NOTE | ~2020-08-31 | XR_ITS ---
EXAMINATION: XR abdomen/kub 1V EXAM DATE: 09/02/2020 14:29 INDICATION: Retained stent. TECHNIQUE: Frontal projection(s) of the abdomen for interpretation. Comparison is made to prior exami nation from 02/24/2019. FINDINGS: There is a right-sided double-J ureteral stent overlying expected position. Calcific densi ty above the proximal loop likely arterial, correlating with yesterday's CT abdomen pelvis exam. Ther e is no organomegaly. Positive bowel gas, likely indicating bowel is fluid-filled. There is a pain pu mp, catheter. Lumbar fusion L1-2 and L5-S1. There are 3 metallic densities could be prostate radiatio n seeds. There are bony degenerative changes. IMPRESSION: Right ureteral stent in position. Reviewed, dictated and finalized at location A. IRER HELPER
--- NOTE | ~2020-08-31 | US_ITS ---
EXAMINATION: US arterial duplex LE RT INDICATION: Right leg pain and swelling, faint pulse TECHNIQUE: Membreno scale and color Doppler evaluation of the right lower extremity arteries is performed . Doppler waveforms are also obtained. COMPARISON: None available FINDINGS: No arterial occlusion is identified. Flow velocity in the common femoral artery is 140 cm/s . Flow velocity in the proximal superficial femoral artery is 76 cm/s. There is three-vessel flow and ankle with the slow velocity being 39 cm/s in the peroneal artery. IMPRESSION: 1. No arterial occlusion identified. Reviewed, dictated and finalized at location A. LATORY COMPLIANCE ENGINEER
--- NOTE | ~2020-08-31 | XR_ITS ---
EXAMINATION: XR chest 1V portable INDICATION: Shortness of breath TECHNIQUE: Portable AP chest at 1655 hours COMPARISON: 03/02/2020 FINDINGS: A right internal jugular central venous catheter ends with its tip in the distal superior v sarah cava. The lungs are free of acute opacities. There is no pleural effusion or pneumothorax. The ca rdiomediastinal silhouette is normal. Suture anchors are noted in the glenoids. There is fusion hardw are of the upper lumbar spine. IMPRESSION: 1. No acute cardiopulmonary abnormality. Reviewed, dictated and finalized at location A. AY MODEL
--- NOTE | ~2020-08-31 | CT_ITS ---
EXAMINATION: CT brain wo con INDICATION: Lethargy and confusion COMPARISON: 02/24/2019 TECHNIQUE: Standard unenhanced head CT. The dose-length product (DLP) was 605.33 mGy-cm. The mA was a djusted according to patient size. Iterative reconstruction technique was employed. FINDINGS: There is no intracranial hemorrhage, acute infarction, or abnormal mass lesion. The ventric les are normal. There is no abnormal mass effect or midline shift. The slaughter-white matter differentiat ion is normal. The basal cisterns are patent. Changes in the globes are likely from ocular lens surge ry. There is mild mucosal thickening of the paranasal sinuses. IMPRESSION: 1. No acute intracranial abnormality. Reviewed, dictated and finalized at location A. DRIER
--- NOTE | ~2020-08-31 | CT_ITS ---
EXAMINATION: CT abdomen pelvis wo con DATE: 09/01/2020 17:06 INDICATION: Intermittent right upper quadrant pain TECHNIQUE: Computed tomography (CT) of the abdomen and pelvis was performed without intravenous contr ast. The dose-length product (DLP) was 955.36 mGy-cm. Automated exposure control and iterative recons truction technique were employed. COMPARISON: 05/01/2020 FINDINGS: Minimal dependent atelectasis is present in the lung bases. The heart size is normal. Punct ate calcifications in an otherwise normal spleen likely represent healed granulomatous disease. The g allbladder is surgically absent. The liver, pancreas, and adrenal glands are normal. There is severe atrophy of the left kidney. A right internal ureteral stent is in expected position. There is moderat e right hydroureteronephrosis. The bladder is distended. There is a diverticulum of the bladder apex. There is calcified atherosclerosis of the aorta and many of the other arteries. There is severe athe rosclerosis at the origin of the left common iliac artery. There is a colostomy in the left lower ross drant. A pain pump is implanted in the anterior subcutaneous tissues of the right lower quadrant. The re are changes of posterior fusion at L1-2 and L5-S1. Chronic burst fractures are noted at T10, L1, a nd L2. There is a chronic compression fracture of T12. IMPRESSION: 1. Right internal ureteral stent in expected position with interval development of moderate right hyd roureteronephrosis. Reviewed, dictated and finalized at location A. EXAMINER IMPRESSION: 1. Right internal ureteral stent in expected position with interval development of moderate right hydroureteronephrosis.
--- NOTE | ~2020-08-31 | CT_ITS ---
EXAMINATION: CT ankle RT wo con DATE: 09/01/2020 17:06 INDICATION: Right ankle injury and pain. TECHNIQUE: Computed tomography (CT) of the right ankle was performed without intravenous contrast. Au tomated exposure control and iterative reconstruction technique were employed. The dose-length produc t was 258.42 mGy-cm. COMPARISON: Right ankle radiographs 08/31/2020 FINDINGS: Bone alignment is normal. No acute fracture. There is chronic heterotopic ossification dist al to medial malleolus from old injury. There is mild osteoarthritis of the ankle joint, subtalar betsy nt, and some of the midfoot joints. There is diffuse subcutaneous edema of the foot and ankle. IMPRESSION: 1. No acute fracture. 2. Mild polyarticular osteoarthritis. Reviewed, dictated and finalized at location A. [employer]ONMENT[employer] SAFETY ENGINEER
[2020-08-31 14:32] VITALS: BP 152/69; PULSE 74; RESP 16; TEMP 36.6; O2SAT 95
--- NOTE | 2020-08-31 15:54 | PC.NURSE ---
No acute distress, moving around waiting in wheelchair. Skin and breathing WNL.
--- NOTE | 2020-08-31 16:45 | ECG_ITS ---
Measurements Intervals [place] Rate: 73 P: 61 SD: 159 QRS: 74 QRSD: 90 T: 87 QT: 406 QTc: 448 Interpretive Statements SINUS RHYTHM BORDERLINE ST-T WAVE ABNORMALITY- LAT/HIGH LAT LEADS BORDERLINE ECG Electronically Signed On 08-31-2020 20:20:53 BOOKKEEPING TEACHER by Luis Enrique Madrigal D.O.
--- NOTE | 2020-08-31 17:15 | ED.GENADULT ---
HPI - General Adult General Chief complaint: Weakness <YI Arreola Last Filed: 08/31/20 20:42> Stated complaint: more lethargic, R foot and ankle swelling <YI Arreola Last Filed: 08/31/20 20:42> Time Seen by Provider: 08/31/20 16:48 <YI Arreola Last Filed: 08/31/20 20:42> Source: patient and old records reviewed <YI Arreola Last Filed: 08/31/20 20:42> Mode of arrival: EMS <YI Arreola Last Filed: 08/31/20 20:42> Limitations: no limitations <YI Arreola Last Filed: 08/31/20 20:42> History of Present Illness HPI narrative: Patient is a 59-year-old male who presents to emergency department for evaluation of pain and swelling involving the left lower extremity patient notes Monday he developed swelling pain and discoloration of the left foot denies injury or trauma. Patient notes history of arterial blockage where he has a [id number] amputation of the left leg. Patient notes that the swelling did go down today. Patient notes he is currently not on any blood thinners patient patient's vascular surgeon is at [facility]. . Patient with history of tobacco abuse. Patient notes cough but denies any dyspnea or other URI symptoms. <YI Arreola Last Filed: 08/31/20 20:42> Related Data Home medications: Home Medications Medication Instructions Recorded Confirmed cyclobenzaprine 10 mg PO TID 07/30/19 09/01/20 fluticasone propion-salmeterol 2 ea INHALATION DAILY 07/30/19 09/01/20 [Advair Diskus] gabapentin 300 mg TID 07/30/19 08/31/20 hydrocodone-acetaminophen 325 tablet PO 4-6XD PRN 07/30/19 08/31/20 prednisone 5 mg BID 07/30/19 08/31/20 tamsulosin 0.4 mg PO DAILY 07/30/19 09/01/20 alprazolam 1 mg PO TID 01/09/20 08/31/20 duloxetine 30 mg PO HS 08/31/20 08/31/20 aspirin 81 mg PO DAILY 09/01/20 09/01/20 atorvastatin 40 mg PO DAILY 09/01/20 09/01/20 cholecalciferol (vitamin D3) 400 mg PO DAILY 09/01/20 09/01/20 sertraline 100 mg PO HS 09/01/20 09/01/20 <Jn Rust PA-C - Last Filed: 08/31/20 20:42> Allergies/adverse reactions: Allergies Allergy/AdvReac Type Severity Reaction Status Date / Time oxycodone AdvReac Agitated Verified 09/01/20 00:34 <Jn Rust PA-C - Last Filed: 08/31/20 20:42> Review of Systems Review of Systems: All systems reviewed & are unremarkable except as noted in HPI and below <Jn Rust PA-C - Last Filed: 08/31/20 20:42> [facility] Past Medical History Medical History: Medical History (Updated 09/01/20 @ 06:19 by Vincent Grossman MD) Anemia Anemia Bowel obstruction Bowel obstruction CAD (coronary artery disease) Chronic pain CKD (chronic kidney disease) Colorectal cancer Colorectal cancer COPD (chronic obstructive pulmonary disease) COPD (chronic obstructive pulmonary disease) DVT (deep venous thrombosis) Emphysema of lung Gangrene GI bleed History of left above knee amputation History of left above knee amputation HLD (hyperlipidemia) HTN (hypertension) 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 PAD (peripheral artery disease) Peripheral neuropathy Peripheral neuropathy Pneumonia Pneumonia Prostate CA Prostate cancer PVD (peripheral vascular disease) Renal cancer Renal cancer Right wrist fracture Rotator cuff arthropathy of both shoulders Seizure Seizure Short gut syndrome UTI (urinary tract infection) <Jn Rust PA-C - Last Filed: 08/31/20 20:42> Surgical History Surgical History: Surgical History H/O bilateral cataract extraction H/O ileostomy H/O left nephrectomy H/O left nephrectomy H/O right wrist surgery H/O right wrist surgery H/O rotator cuff surgery History of back surgery History of cardiac catheterization History of cataract surgery History of colon resection History of urethral stent Hx of appendectomy Hx of cholec
[2020-08-31 17:16] LABS: Basophils Percent Auto 0.2 % (0.2-1.2); Eosinophils Absolute Auto 0.3 K/mm3 (0-0.3); Eosinophils Percent Auto 3.3 % (0-4.4); Hematocrit 31.1 % (42.0-52.0); Hemoglobin 9.7 g/dL (14.0-18.0); Immature Granulocyte Absolute 0.05 K/mm3 (0.00-0.031); Immature Granulocyte Percent A 0.6 % (0-0.5); Lymphocytes Absolute Auto 1.67 K/mm3 (0.9-3.2); Lymphocytes Percent Auto 20.4 % (18.3-44.2); Mean Corpuscular HGB Conc 31.2 g/dl (32-36); Mean Corpuscular Hemoglobin 27.7 pg (26-34); Mean Corpuscular Volume 88.9 fl (80-100); Mean Platelet Volume 10.1 fl (7.4-10.4); Monocytes Absolute Auto 0.6 K/mm3 (0.1-0.6); Monocytes Percent Auto 7.7 % (2.6-8.5); Neutrophils Absolute Auto 5.5 K/mm3 (1.3-6.7); Neutrophils Percent Auto 67.8 % (45.5-73.1); Platelet Count Result 178 k/mm3 (150-375); Red Cell Distribution Width 21.2 % (11.5-14.5); White Blood Count 8.2 K/mm3 (4.5-10.0)
[2020-08-31 17:21] LABS: Lactic Acid Reflex 1.1 mmol/L (0.7-2.1)
[2020-08-31 17:23] LABS: Prothrombin Time 13.5 Seconds (11.1-14.7)
[2020-08-31 17:24] LABS: Partial Thromboplastin Time 43.9 SECONDS (22.3-36.8)
[2020-08-31 17:26] LABS: Alanine Aminotransferase 22 U/L (4-50); Albumin Level 3.3 g/dL (3.5-5.1); Alkaline Phosphatase 62 U/L (38-126); Anion Gap 5 mmol/L (8-16); Aspartate Amino Transferase 25 U/L (17-59); Bilirubin,Total 0.3 mg/dL (0.2-1.3); Blood Urea Nitrogen 43 mg/dL (9-20); Carbon Dioxide 29 mmol/L (22-30); Chloride 104 mmol/L (98-107); Estimated CRCL calculation 30 ml/min; Estimated Glomerular Filt Rate 25; Glucose 102 mg/dL (75-110); Lipase 94 U/L (23-300); Potassium 4.7 mmol/L (3.4-5.0); Sodium 138 mmol/L (137-145)
[2020-08-31 18:23] LABS: Add Urine Microscopic? YES; Appearance Urine Clear (Clear); Bilirubin Urine Negative (Negative); Blood Urine Negative (Negative); Color Urine Straw (Yellow); Glucose Urine UA Negative (Negative); Ketones Urine Negative (Negative); Leukocyte Esterase Ur 1+ LEU/UL (Negative); Nitrate Urine Negative (Negative); Protein Urine 3+ mg/dL (Negative); Specific Grav Ur 1.014 (1.001-1.035); Urobilinogen Urine Negative mg/dL (<2.0)
[2020-08-31 18:26] VITALS: BP 159/85; PULSE 79; RESP 16; O2SAT 94
[2020-08-31 18:37] LABS: Alveolar/Arterial O2 Gradient 36.6 mmHg; Carboxyhemoglobin 3.9 % THb (0-2.0); Device ROOM AIR; Fractional Inspired Oxygen 21 %; HCO3 ABG 26.7 mEq/l (22.0-26.0); Methemoglobin ABG 0.2 %THb (0-1.5); Oxygen Content ABG 12.9 %vol (16.0-22.0); Oxygen Saturation ABG 92.3 % (95.0-100.0); Oxyhemoglobin 88.2 % THb (90.0-100.0); PCO2 ABG 42.3 mmHg (35.0-45.0); PO2 ABG 62.5 mmHg (80.0-100.0); PO2 FiO2 Ratio Arterial Blood 2.98 %; Reduced Hemoglobin 7.7 %THb (0-5.0); Site Drawn RIGHT BRACHIAL; Total Hemoglobin 10.4 g/dL (12.0-18.0); pH ABG 7.418 (7.350-7.450)
--- NOTE | 2020-08-31 19:27 | PC.NURSE ---
Patient in CT.
[2020-08-31 20:16] VITALS: BP 172/82; PULSE 82; RESP 16; TEMP 36.7; O2SAT 94
[2020-08-31 20:49] VITALS: BP 162/83; PULSE 86; RESP 16; O2SAT 94
[2020-08-31 21:52] VITALS: BP 164/66; PULSE 79; RESP 17; O2SAT 95
[2020-08-31 22:30] VITALS: BP 178/86; PULSE 77; RESP 20; TEMP 36.6; O2SAT 96; BMI 26.9
[2020-08-31 22:41] VITALS: BMI 25.2
--- NOTE | 2020-08-31 22:53 | ADMGEN ---
This patient, Fernandez Russell, was admitted to [facility] Surg Room 329-01. Patient/family oriented to hospital policies and general routines including ID bracelet, bed and alarms, visiting hours, pain management, procedures, bathroom and other care routines, personal items, smoking policy, room service/diet, and visiting hours. Information on how to activate the Rapid Response Team has been discussed. Patient/Family are encouraged to report perceived risks to care and to ask questions if they do not understand what they are told or what they should do.
--- NOTE | 2020-08-31 23:40 | PM.IMHP ---
H&P: HPI History of Present Illness Date/Time: 08/31/20 23:40 Chief Complaint: right leg swelling and pain Narrative: This is a 59 year old male with known history of previous colorectal cancer on chemotherapy, chronic pain with a morphine pain pump, COPD, CKD and several other comorbidities who presented to the hospital for evaluation of RLE swelling and pain. He denies any trauma to his right lower extremity. He has a history of a left AKA secondary to an arterial thrombosis in the past. The patient was evaluated in the ER today and underwent venous and arterial ultrasounds which did not demonstrate any blood clots. He is not on any blood thinners. His was worried because she had stated that over the past 3 days the patient has been very somnolent and experiencing generalized weakness. The patient had a sporadic cough and is known to smoke about 1 ppd. He last had chemotherapy a couple of weeks ago. He denies any recent changes to his pain pump which he has been on for years. He admits to me that he is very weak. He denies any fevers, chills, chest pain, shortness of breath, abdominal pain, dysuria, hematuria, nausea, vomiting, diarrhea, or rectal bleeding. Brain CT was unremarkable as well as CXR. The patient was swabbed for COVID-19 in the ER and we have been asked to admit the patient to the hospital for evaluation of his generalized weakness. No other complaints. Review of Systems Review of Systems: All systems reviewed & are unremarkable except as noted in HPI and below PMFSH Past Medical History Medical History (Updated 09/01/20 @ 06:19 by Vincent Grossman MD) Anemia Anemia Bowel obstruction Bowel obstruction CAD (coronary artery disease) Chronic pain CKD (chronic kidney disease) Colorectal cancer Colorectal cancer COPD (chronic obstructive pulmonary disease) COPD (chronic obstructive pulmonary disease) DVT (deep venous thrombosis) Emphysema of lung Gangrene GI bleed History of left above knee amputation History of left above knee amputation HLD (hyperlipidemia) HTN (hypertension) 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 PAD (peripheral artery disease) Peripheral neuropathy Peripheral neuropathy Pneumonia Pneumonia Prostate CA Prostate cancer PVD (peripheral vascular disease) Renal cancer Renal cancer Right wrist fracture Rotator cuff arthropathy of both shoulders Seizure Seizure Short gut syndrome UTI (urinary tract infection) Surgical History Surgical History H/O bilateral cataract extraction H/O ileostomy H/O left nephrectomy H/O left nephrectomy H/O right wrist surgery H/O right wrist surgery H/O rotator cuff surgery History of back surgery History of cardiac catheterization History of cataract surgery History of colon resection History of urethral stent Hx of appendectomy Hx of cholecystectomy S/P PICC central line placement Social History Social History Smoking packs per day: 1.5 Smoking cigarettes per day: 30.0 Smoking status: Heavy tobacco smoker Tobacco type: cigarettes Alcohol intake: former Substance use: never Gender identity (if verbalized by the patient): Male Spiritual care concerns: No Meds Home Medications and Allergies Home Medications Medication Instructions Recorded Confirmed Type cyclobenzaprine 10 mg PO TID 07/30/19 09/01/20 History fluticasone propion-salmeterol 2 ea INHALATION DAILY 07/30/19 09/01/20 History [Advair Diskus] gabapentin 300 mg TID 07/30/19 08/31/20 History hydrocodone-acetaminophen 325 tablet PO 4-6XD PRN 07/30/19 08/31/20 History prednisone 5 mg BID 07/30/19 08/31/20 History tamsulosin 0.4 mg PO DAILY 07/30/19 09/01/20 History alprazolam 1 mg PO TID 01/09/20 08/31/20 History duloxetine 30 mg PO HS 08/31/20 08/31/20 History aspirin 81 mg PO DAILY 09/01/20 09/01/20 History atorvastatin 40 mg PO DAILY 0
[2020-09-01] MEDS: LACTATED RINGERS 1,000 ML 75 ML IV CONT (01:10)
[2020-09-01] MEDS: NICOTINE (*PBKC) 14 MG PATCH 1 PATCH TRANSDERM (01:10)
[2020-09-01 04:00] VITALS: BP 165/69; PULSE 84; RESP 16; TEMP 37.1; O2SAT 94
[2020-09-01 06:56] LABS: Basophils Percent Auto 0.3 % (0.2-1.2); Eosinophils Absolute Auto 0.2 K/mm3 (0-0.3); Eosinophils Percent Auto 3.2 % (0-4.4); Hematocrit 29.7 % (42.0-52.0); Hemoglobin 9.2 g/dL (14.0-18.0); Immature Granulocyte Absolute 0.05 K/mm3 (0.00-0.031); Immature Granulocyte Percent A 0.7 % (0-0.5); Lymphocytes Absolute Auto 1.55 K/mm3 (0.9-3.2); Lymphocytes Percent Auto 22.8 % (18.3-44.2); Mean Corpuscular Hemoglobin 26.9 pg (26-34); Mean Corpuscular Volume 86.8 fl (80-100); Mean Platelet Volume 10.4 fl (7.4-10.4); Monocytes Absolute Auto 0.6 K/mm3 (0.1-0.6); Monocytes Percent Auto 9.3 % (2.6-8.5); Neutrophils Absolute Auto 4.3 K/mm3 (1.3-6.7); Neutrophils Percent Auto 63.7 % (45.5-73.1); Platelet Count Result 176 k/mm3 (150-375); Red Blood Count 3.42 M/mm3 (4.6-6.20); Red Cell Distribution Width 20.7 % (11.5-14.5); White Blood Count 6.8 K/mm3 (4.5-10.0)
[2020-09-01 07:10] LABS: Anion Gap 3 mmol/L (8-16); Blood Urea Nitrogen 37 mg/dL (9-20); Calcium 8.9 mg/dL (8.4-10.2); Carbon Dioxide 29 mmol/L (22-30); Chloride 105 mmol/L (98-107); Estimated CRCL calculation 30 ml/min; Estimated Glomerular Filt Rate 25; Glucose 100 mg/dL (75-110); Potassium 4.6 mmol/L (3.4-5.0); Sodium 137 mmol/L (137-145)
[2020-09-01 08:00] VITALS: BP 183/87; PULSE 84; RESP 20; TEMP 36.8; O2SAT 94
[2020-09-01 08:16] LABS: Folic Acid 14.8 ng/mL (2.76->20)
[2020-09-01] MEDS: hydrALAZINE HCL 20 MG/ML VIAL 10 MG IV PUSH ×2 (09:45→16:44)
[2020-09-01] MEDS: ENOXAPARIN 40 MG/0.4 ML SYRINGE SUB-Q (09:55)
[2020-09-01] MEDS: HYDROcodone/acetaminophen (*CRX) 10-325 MG TABLET 1 TAB PO ×2 (10:41→14:32)
[2020-09-01] MEDS: predniSONE 5 MG TABLET PO ×2 (10:42→18:03)
[2020-09-01] MEDS: TAMSULOSIN HCL 0.4 MG CAPSULE PO (10:42)
[2020-09-01] MEDS: ATORVASTATIN 40 MG TABLET PO (10:42)
[2020-09-01] MEDS: ASPIRIN 81 MG ENTERIC TABLET PO (10:43)
[2020-09-01] MEDS: CYCLOBENZAPRINE HCL 5 MG TABLET PO ×3 (10:45→18:03)
[2020-09-01 11:59] VITALS: BP 160/72; PULSE 84; RESP 20; TEMP 37; O2SAT 96
--- NOTE | 2020-09-01 14:03 | PCRCNOTE ---
PT. STATES HAS NOT WORN A CPAP AT HOME FOR YEARS AND IS NOT INTERESTED IN WEARING ONE WHILE HE IS HERE.
[2020-09-01] MEDS: GABAPENTIN 300 MG CAPSULE PO ×2 (14:32→18:04)
[2020-09-01 16:00] VITALS: PULSE 80; RESP 20; TEMP 36.6; O2SAT 98
--- NOTE | 2020-09-01 16:16 | PM.IMPN ---
Progress Note: A&P Assessment and Plan (1) Generalized weakness: Code(s): R53.1 - Weakness Status: Acute Assessment and Plan: Generalized weakness is likely secondary to deconditioning and chronic illnesses such as colorectal cancer, chemotherapy, chronic pain syndrome, chronic narcotic use, and anemia. TSH normal, vitamin B12 and folic acid are normal. Will start PT OT once be further evaluate his right ankle pain and rule out acute fracture. Continue monitoring. Fall precautions. (2) Edema of right lower extremity: Code(s): R60.0 - Localized edema Status: Acute Assessment and Plan: Ankle swelling noted to right side, mostly in medial malleolus. Ultrasound was negative for DVT and/or arterial thrombus. Will order CT of his right ankle to rule out acute fracture due to his chronic steroids, chemotherapy, and him being high risk for fractures Patient does not have any pain to his ankle but he also has a history of neuropathy so does not unlike him to not have pain If CT is negative and it shows a large amount of joint effusion will consider joint aspiration, but his labs are currently not showing any signs of infection, vital signs normal. Continue monitoring. (3) Abnormal urinalysis: Code(s): R82.90 - Unspecified abnormal findings in urine Status: Acute Assessment and Plan: r/o UTI. Continue IV antibiotics. Urine culture pending. (4) Suspected 2019 novel coronavirus infection: Code(s): Z20.822 - Contact with and (suspected) exposure to COVID-19 Status: Acute Assessment and Plan: The patient was swabbed for COVID-19. Continue droplet isolation. Continue supportive care. Covid-19 results pending. (5) Chronic pain syndrome: Code(s): G89.4 - Chronic pain syndrome Status: Chronic Assessment and Plan: Continue his [place] p.r.n., Xanax p.r.n., gabapentin, decreased his Flexeril by half p.r.n. Continue monitoring mental status (6) Anemia: Code(s): D64.9 - Anemia, unspecified Status: Acute Assessment and Plan: Likely secondary to chemotherapy. H&H is stable with a hemoglobin 9.2, hematocrit 29%. No signs of acute blood loss. Monitor H/H, transfuse prn. (7) Colorectal cancer: Code(s): C19 - Malignant neoplasm of rectosigmoid junction Status: Chronic Assessment and Plan: Continue Oncology recommendations. (8) CKD (chronic kidney disease): Code(s): N18.9 - Chronic kidney disease, unspecified Status: Chronic Assessment and Plan: Stable. CKD stage III. Creatinine is 2.6, BUN 37. Stable. Monitor renal function and urine output. Avoid nephrotoxic agents, renally dose medications. (9) History of left above knee amputation: Code(s): Z89.612 - Acquired absence of left leg above knee Status: Chronic Assessment and Plan: Stable. (10) HTN (hypertension): Code(s): I10 - Essential (primary) hypertension Status: Chronic Assessment and Plan: elevated. Could be secondary to pain. He is not on any home blood pressure medications at this time Blood pressure was 183/87 this morning. PRN IV hydralazine w/ parameters. Monitor blood pressure. (11) COPD (chronic obstructive pulmonary disease): Code(s): J44.9 - Chronic obstructive pulmonary disease, unspecified Status: Chronic Assessment and Plan: Continue bronchodilators.
[2020-09-01 16:40] VITALS: BP 204/108
[2020-09-01] MEDS: ALPRAZolam (*CRX) 0.5 MG TABLET 1 MG PO (16:43)
[2020-09-01] MEDS: ACETAMINOPHEN 325 MG TABLET 650 MG PO (16:44)
--- NOTE | 2020-09-01 18:14 | PC.NURSE ---
Pt BP at 1640 204/108 manual. Informed PA who authorized early administration of hydralazine 10 mg IVP. 1mg ativan also given, along with other medications. BP at 1745 200/108. Informed Lien who asked us to recheck at 1900. If pressure still elevated (SBP>170, DBP>100) may give additional 10mg IVP hydralazine once. Order placed as such.
[2020-09-01 19:08] LABS: SARS-CoV-2 RNA PCR Negative
[2020-09-01 20:00] VITALS: BP 150/75; PULSE 88; RESP 16; TEMP 36.4; O2SAT 96
--- NOTE | 2020-09-01 20:00 | PC.NURSE ---
At shift change, brought blue and white bag of belongings which included: mcdfeliciano filet o fish sandwhich, ostomy supplies, 1 famotidine 20mg/2ml vial, 2 bags of TPN, a pain pump, a heated blanket and an empty black backpack as well as a few cartwright depends. I placed one belongings bag with the TPN and famotidine in the fridge, one belongings bag with the ostomy supplies at the bedside, and one belongings bag with the blue and white bag and everything else in the patients closet, the sandwhich I gave to the patient after verifying his diet. -BLAIR MORALES
[2020-09-01] MEDS: DULoxetine HCL 30 MG CAPSULE.DR PO (20:45)
[2020-09-01] MEDS: SERTRALINE HCL 50 MG TABLET 100 MG PO (20:45)
--- NOTE | 2020-09-01 23:52 | PC.NURSE ---
pt was informed that he cannot use home heated blanket or home TPN/meds without an order and he grew upset... turned up heat in room and brought a heated blanket to compromise. -AEW RN
[2020-09-02] MEDS: HYDROcodone/acetaminophen (*CRX) 10-325 MG TABLET 1 TAB PO ×3 (00:41→13:40)
--- NOTE | 2020-09-02 00:46 | PC.NURSE ---
pt refused 00:00 acetaminophen due to it not touching his pain .. accepted PRN [place] as an alternative to help manage pain. Said his ankle is throbbing .
[2020-09-02] MEDS: LACTATED RINGERS 1,000 ML 75 ML IV CONT (03:30)
--- NOTE | 2020-09-02 04:51 | PC.NURSE ---
Pt stated he plans on signing himself out in the AM due to not receiving TPN that brought him, I let him know we do not have an order so we are unable to give it, and brought him a boxed lunch and nikolay mist as a compromise. -AEW RN
[2020-09-02 04:53] LABS: Hematocrit 30.2 % (42.0-52.0); Hemoglobin 9.8 g/dL (14.0-18.0); Mean Corpuscular HGB Conc 32.5 g/dl (32-36); Mean Corpuscular Hemoglobin 27.8 pg (26-34); Mean Corpuscular Volume 85.6 fl (80-100); Mean Platelet Volume 9.6 fl (7.4-10.4); Platelet Count Result 183 k/mm3 (150-375); Red Blood Count 3.53 M/mm3 (4.6-6.20); Red Cell Distribution Width 20.5 % (11.5-14.5); White Blood Count 7.7 K/mm3 (4.5-10.0)
[2020-09-02 05:10] LABS: Alanine Aminotransferase 24 U/L (4-50); Albumin Level 3.4 g/dL (3.5-5.1); Alkaline Phosphatase 70 U/L (38-126); Anion Gap 6 mmol/L (8-16); Aspartate Amino Transferase 28 U/L (17-59); Bilirubin,Total 0.4 mg/dL (0.2-1.3); Blood Urea Nitrogen 39 mg/dL (9-20); CRP 7.4 mg/dL (<1.0); Calcium 9.1 mg/dL (8.4-10.2); Carbon Dioxide 26 mmol/L (22-30); Chloride 103 mmol/L (98-107); Estimated CRCL calculation 27 ml/min; Estimated Glomerular Filt Rate 22; Glucose 177 mg/dL (75-110); Potassium 4.9 mmol/L (3.4-5.0); Sodium 135 mmol/L (137-145); Uric Acid 6.3 mg/dL (3.5-8.5)
[2020-09-02 05:18] VITALS: BP 160/96; PULSE 80; RESP 16; TEMP 36.5; O2SAT 97
[2020-09-02] MEDS: NICOTINE (*PBKC) 14 MG PATCH 1 PATCH TRANSDERM (06:03)
[2020-09-02] MEDS: ACETAMINOPHEN 325 MG TABLET 650 MG PO (06:04)
[2020-09-02] MEDS: TAMSULOSIN HCL 0.4 MG CAPSULE PO (08:52)
[2020-09-02] MEDS: ATORVASTATIN 40 MG TABLET PO (08:52)
[2020-09-02] MEDS: ALPRAZolam (*CRX) 0.5 MG TABLET 1 MG PO (08:52)
[2020-09-02] MEDS: predniSONE 5 MG TABLET PO (08:52)
[2020-09-02] MEDS: GABAPENTIN 300 MG CAPSULE PO ×2 (08:52→13:41)
[2020-09-02] MEDS: CYCLOBENZAPRINE HCL 5 MG TABLET PO ×2 (08:53→13:41)
[2020-09-02] MEDS: FLUTICASONE/SALMETEROL 115-21 MCG INHALER 1 PUFF 2 PUFF INHALATION (08:53)
[2020-09-02] MEDS: ASPIRIN 81 MG ENTERIC TABLET PO (08:53)
[2020-09-02] MEDS: ENOXAPARIN 40 MG/0.4 ML SYRINGE SUB-Q (08:53)
--- NOTE | 2020-09-02 09:58 | PCOTNOTE ---
Attempted to see patient this am, however patient refused stating, I'm getting ready to go home if I can get a doctor in here. I'll shower when I get home. Pt had no concerns as per OT prior to discharge at this time.
--- NOTE | 2020-09-02 10:53 | PM.IMPN ---
Progress Note: A&P Assessment and Plan (1) Hydroureteronephrosis: Code(s): N13.30 - Unspecified hydronephrosis Status: Acute Assessment and Plan: Patient was having some right upper quadrant pain yesterday and was requesting more pain medications. Due to this pain I decided to order a CT of his abdomen pelvis ureteral stent in expected position with interval development of moderate right hydroureter nephrosis. Patient states the stent was placed in 2014 but tells me it is related to his morphine pump, which I do not believe. He states this was all done in [place], [place] at [facility]. All of his other abdominal procedures have been done at [facility] under Dr. Mosqueda and Dr. Olmedo. Will consult urology on the matter due to his moderate hydronephrosis. Concerned about his elevating creatinine, uncontrolled blood pressure readings and urology is input is greatly appreciated. Continue monitoring. (2) Edema of right lower extremity: Code(s): R60.0 - Localized edema Status: Acute Assessment and Plan: Ankle swelling noted to right side, mostly in medial malleolus. Ultrasound was negative for DVT and/or arterial thrombus. CT Ankle showed old injury, no fracture. Mild polyarthritis. Subcutaneous edema to foot/ankle. Uric acid level was normal. CRP was 9.0 yesterday and decreased to 7.4 today. Could be elevated due to his underlying cancer for which he is receiving chemotherapy at [facility]. No signs of acute infection at this time. Normal WBC, afebrile, nontachycardic, on room air. Will Stop IV Fluids at this time. Consider IV Lasix 20 mg one time if continues. Continue monitoring. (3) Generalized weakness: Code(s): R53.1 - Weakness Status: Acute Assessment and Plan: Generalized weakness is likely secondary to deconditioning and chronic illnesses such as colorectal cancer, chemotherapy, chronic pain syndrome, chronic narcotic use, and anemia. TSH normal, vitamin B12 and folic acid are normal. Continue PT OT Continue monitoring. Fall precautions. (4) Abnormal urinalysis: Code(s): R82.90 - Unspecified abnormal findings in urine Status: Acute Assessment and Plan: Urine culture came back negative. Will discontinue antibiotics at this time. (5) Suspected 2019 novel coronavirus infection: Code(s): Z20.822 - Contact with and (suspected) exposure to COVID-19 Status: Acute Assessment and Plan: The patient was swabbed for COVID-19 and was negative. Discontinue droplet isolation. (6) Chronic pain syndrome: Code(s): G89.4 - Chronic pain syndrome Status: Chronic Assessment and Plan: Continue his [place] p.r.n., Xanax p.r.n., gabapentin, decreased his Flexeril by half p.r.n. Please he is back at his baseline. He appears comfortable and not in any pain or discomfort. He does not appear anxious. (7) Anemia: Code(s): D64.9 - Anemia, unspecified Status: Acute Assessment and Plan: Likely secondary to chemotherapy. H&H is stable with a hemoglobin 9.8, hematocrit 30%. No signs of acute blood loss. Monitor H/H, transfuse prn. (8) Colorectal cancer: Code(s): C19 - Malignant neoplasm of rectosigmoid junction Status: Chronic Assessment and Plan: Continue Oncology recommendations. (9) CKD (chronic kidney disease): Code(s): N18.9 - Chronic kidney disease, unspecified Status: Chronic Assessment and Plan: Stable. CKD stage III. Patient states his baseline creatinine is 2.5. Creatinine is 2.
[2020-09-02 13:36] VITALS: BMI 25.2
[2020-09-02 14:00] VITALS: BP 142/76; PULSE 81; RESP 20; TEMP 36.4; O2SAT 97
--- NOTE | 2020-09-02 15:53 | WPDURCON ---
Assessment and Plan Assessment and plan (1) Hydroureteronephrosis: Code(s): N13.30 - Unspecified hydronephrosis Status: Acute Assessment and Plan: Patient is scheduled for a repeat stent exchange in the right ureter in 10/2020 at [facility], most recently it was changed in 07/[address] Regalado. He will follow up with them after discharge. No further evaluation needed. (2) Hydroureter, right: Code(s): N13.4 - Hydroureter Status: Acute Assessment and Plan: Creatinine is within range for him. (3) Urinary tract infection: Code(s): N39.0 - Urinary tract infection, site not specified Status: Acute Assessment and Plan: Urine culture negative. Urology Consult Note HPI Date Seen: 09/02/20 Requesting Physician: Meliza Beaver PA-C Primary Care Provider: [facility] PHYSICIAN Consult Narrative Narrative: Fernandez Russell is a 59 year old male who presented to the ER on 08/31/2020 with RLE edema and swelling/pain in his foot without obvious injury. He has a complicated medical history but has had colorectal cancer as well as renal cancer and bladder cancer. He states his stent was placed 1.5 years ago by [facility] and has been changed q 3 months since. Most recently in 07/2020 and is schedule to be changed again in 10/2020. He states he had a left partial nephrectomy and a partial cystectomy, but the CT scan doesn't show evidence of this, therefore it is unclear as to why the stent was placed, or if it was purely obstructive from extrinsic pressure d/t his previous colorectal cancer. His creatinine normally ranges from 2-3.0, today it is 1.9 but has been as high as 4.0 in 2019. It was 2.6 on admission. His WBC is normal at 7.7 and UA is normal, urine culture is negative from this hospitalization. At first he was confused about his morphine pump being in his ureter since 2014, but upon further conversation with him it was determined his morphine pump was placed in 2014 and his stent was replaced in 07/2020. He denies flank pain, difficulty with urination or symptoms of a UTI. Review of Systems Cardiovascular: Cardiovascular: Denies chest pain Respiratory: Respiratory: Reports no additional respiratory complaints Gastrointestinal: Gastrointestinal: Denies abdominal pain, Denies nausea and Denies vomiting Genitourinary: Genitourinary: Denies dysuria, Denies flank pain, Denies urinary frequency, Denies urinary hesitancy and Denies urinary urgency [facility] Past Medical History Medical History Anemia Anemia Bowel obstruction Bowel obstruction CAD (coronary artery disease) Chronic pain CKD (chronic kidney disease) Colorectal cancer Colorectal cancer COPD (chronic obstructive pulmonary disease) COPD (chronic obstructive pulmonary disease) DVT (deep venous thrombosis) Emphysema of lung Gangrene GI bleed History of left above knee amputation History of left above knee amputation HLD (hyperlipidemia) HTN (hypertension) 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 PAD (peripheral artery disease) Peripheral neuropathy Peripheral neuropathy Pneumonia Pneumonia Prostate CA Prostate cancer PVD (peripheral vascular disease) Renal cancer Renal cancer Right wrist fracture Rotator cuff arthropathy of both shoulders Seizure Seizure Short gut syndrome UTI (urinary tract infection) Surgical History Surgical History H/O bilateral cataract extraction H/O ileostomy H/O left nephrectomy H/O left nephrectomy H/O right wrist surgery H/O right wrist surgery H/O rotator cuff surgery History of back surgery History of cardiac catheterization History of cataract surgery History of colon resection History of urethral stent Hx of appendectomy Hx of cholecystectomy S/P PICC central line placement Social History Social History (Reviewed 09/02/20 @ 15:59
--- NOTE | 2020-09-02 16:09 | PM.DS ---
DS: Admitting Diagnosis Admitting Diagnosis Admitting Diagnosis: AMS/Leg pain DS: Discharge Diagnosis Discharge Diagnosis (1) Hydroureteronephrosis: Code(s): N13.30 - Unspecified hydronephrosis Status: Acute Assessment and Plan: Patient was having some right upper quadrant pain yesterday and was requesting more pain medications. Due to this pain I decided to order a CT of his abdomen pelvis ureteral stent in expected position with interval development of moderate right hydroureter nephrosis. Urology was consulted due to her hydro and they found out that the patient sees a urologist at [facility] and had a stent switched out just recently. He has another appointment in October to remove stent. Urology at this point time does not want to do further testing and feels he needs to follow-up with [facility]. Will have him given will call for follow-up. His renal function is otherwise stable at this time. He is otherwise back to his baseline without any complaints. He wishes to be discharged home today. (2) Edema of right lower extremity: Code(s): R60.0 - Localized edema Status: Acute Assessment and Plan: Ankle swelling noted to right side, mostly in medial malleolus. Ultrasound was negative for DVT and/or arterial thrombus. CT Ankle showed old injury, no fracture. Mild polyarthritis. Subcutaneous edema to foot/ankle. Uric acid level was normal. CRP was 9.0 yesterday and decreased to 7.4 today. Could be elevated due to his underlying cancer for which he is receiving chemotherapy at [facility]. No signs of acute infection at this time. Normal WBC, afebrile, nontachycardic, on room air. Discontinue IV fluids. He states normally whenever he gets this type of leg swelling he just does not give himself his normal 1 L of IV fluids at home. I told him to hold his IV fluids at home until his swelling goes down. Keep leg elevated. Patient understands and agrees the plan all questions answered. (3) Generalized weakness: Code(s): R53.1 - Weakness Status: Acute Assessment and Plan: Generalized weakness is likely secondary to deconditioning and chronic illnesses such as colorectal cancer, chemotherapy, chronic pain syndrome, chronic narcotic use, and anemia. TSH normal, vitamin B12 and folic acid are normal. He will be discharged home with home health. (4) Abnormal urinalysis: Code(s): R82.90 - Unspecified abnormal findings in urine Status: Acute Assessment and Plan: Urine culture came back negative. Will discontinue antibiotics at this time. (5) Suspected 2019 novel coronavirus infection: Code(s): Z20.822 - Contact with and (suspected) exposure to COVID-19 Status: Acute Assessment and Plan: The patient was swabbed for COVID-19 and was negative. Discontinue droplet isolation. (6) Chronic pain syndrome: Code(s): G89.4 - Chronic pain syndrome Status: Chronic Assessment and Plan: Continue his [place] p.r.n., Xanax p.r.n., gabapentin, decreased his Flexeril by half p.r.n. Please he is back at his baseline. He appears comfortable and not in any pain or discomfort. He does not appear anxious. (7) Anemia: Code(s): D64.9 - Anemia, unspecified Status: Acute Assessment and Plan: Likely secondary to chemotherapy. H&H is stable with a hemoglobin 9.8, hematocrit 30%. (8) Colorectal cancer: Code(s): C19 - Malignant neoplasm of rectosigmoid junction Status: Chronic Assessment and Plan: Continue Oncology recommendations.
== END 2020-09-02 17:25 | disposition home health service (06) ==
LOC: ANHED 20:42 → ANH3MEDSUR 20:58
PROVIDERS: Emergency Medicine Emergency Medical Services; Physician Assistant; Admitting Provider Family Medicine; Emergency Provider General Practice; Visit Provider Family Medicine
DX: N13.30 Unspecified hydronephrosis (principal); R60.0 Localized edema; R53.1 Weakness; R82.90 Unspecified abnormal findings in urine; Z20.822 Contact with and (suspected) exposure to COVID-19; G89.4 Chronic pain syndrome; D64.9 Anemia, unspecified; C19 Malignant neoplasm of rectosigmoid junction; I12.9 Hypertensive chronic kidney disease with stage 1 through stage 4 chronic kidney disease, or unspecified chronic kidney disease; N18.30 Chronic kidney disease, stage 3 unspecified; E86.0 Dehydration; M79.604 Pain in right leg; N13.4 Hydroureter; E78.5 Hyperlipidemia, unspecified; J44.9 Chronic obstructive pulmonary disease, unspecified; I73.9 Peripheral vascular disease, unspecified; G62.9 Polyneuropathy, unspecified; F17.210 Nicotine dependence, cigarettes, uncomplicated; Z15.09 Genetic susceptibility to other malignant neoplasm; Z89.612 Acquired absence of left leg above knee; Z86.718 Personal history of other venous thrombosis and embolism; Z85.46 Personal history of malignant neoplasm of prostate; Z85.528 Personal history of other malignant neoplasm of kidney; Z93.2 Ileostomy status; Z90.49 Acquired absence of other specified parts of digestive tract; Z79.891 Long term (current) use of opiate analgesic; Z90.5 Acquired absence of kidney; Z96.0 Presence of urogenital implants
CPT/HCPCS: 36415; 36600; 70450; 71045; 73610; 73700; 74018; 74176; 80048; 80053; 81001; 82375; 82607; 82746; 82805; 83050; 83605; 83690; 84443; 84550; 85025; 85027; 85610; 85730; 86140; 87040; 87086; 93005; 93926; 93971; 96361; 96365; 96372; 96375; 96376; 97116; 97161; 97165; 99285; A9270; C9803; G0378; J0360; J0696; J1650; J7120; J7512; U0003; U0005

== ENCOUNTER 2021-01-20 23:51 | Inpatient (IN) | payer MEDICARE, SELFPAY ==
--- NOTE | ~2021-01-20 | XR_ITS ---
EXAMINATION: XR chest 1V portable DATE: 01/21/2021 00:38 INDICATION: Verify PICC line position TECHNIQUE: frontal view of the chest was obtained. COMPARISON: Chest radiograph dated 08/31/2020 FINDINGS: Again seen is a dual lumen right internal jugular central venous catheter with distal tip at the supe rior cavoatrial junction. No focal airspace opacities, pulmonary edema, pleural effusion or pneumothorax. Atherosclerotic calci fications in the right subclavian artery project over the right apex. The cardiomediastinal silhouett e is normal. Suture anchors at the cephalad aspect of both the left and right glenoid suggesting prio r bilateral labral repairs. IMPRESSION: 1. No acute cardiopulmonary disease. Reviewed, dictated and finalized at location A.
--- NOTE | ~2021-01-20 | XR_ITS ---
XR abdomen/kub 1V DATE: 01/24/2021 09:53 INDICATION: Nausea, projectile vomiting TECHNIQUE: 2 portable supine AP views COMPARISON: 09/19/2020 KUB FINDINGS: Postoperative changes of the spine L1-2 and L5-S1. Pain pump device overlies the right iliac area. Right internal urinary stent is again noted, unchanged in position since 09/19/2020. Calcification of the abdominal aorta and iliac arteries. No evidence of bowel obstruction. No gastric distention is evident. Diffuse osteopenia. Bilateral hip osteoarthritis, particularly severe on the left. IMPRESSION: Nonspecific abdomen; no bowel obstruction detected Reviewed, dictated and finalized at Location A. Reviewed, dictated and finalized at location A.
--- NOTE | ~2021-01-20 | CT_ITS ---
EXAMINATION: CT abdomen pelvis wo con DATE: 01/25/2021 08:25 INDICATION: Acute renal failure. TECHNIQUE: Computed tomography (CT) of the abdomen and pelvis was performed without intravenous contr ast. The dose-length product was 405.01 mGy-cm. Automated exposure control and iterative reconstructi on technique were employed. COMPARISON: CT dated 09/01/2020 FINDINGS: Heart size normal. No significant pleural or pericardial effusion. There are calcified gran ulomas of the liver and spleen. There are cholecystectomy clips. There is a severely atrophic left ki dney which is partially calcified. Right internal ureteral stent in expected position. Moderate bladd er distention. There are dilated small bowel loops throughout the abdomen with air-fluid levels which may represent ileus or partial obstruction. Status post partial colectomy with colostomy in the left lower abdomen. Implantable pain pump anterior subcutaneous tissues right lower quadrant. Changes of posterior fusion at L1-2 and L5-S1. Chronic burst fractures of L1 and L2. There is a punctate nonobst ructing right renal stone. There is extensive atherosclerosis of the aorta which is ectatic measuring up to 2.9 cm greatest AP dimension. IMPRESSION: 1. Dilated small bowel loops throughout the abdomen with air-fluid levels which may represent ileus o r partial obstruction. 2: Punctate right nonobstructing renal stone. Right internal ureteral stent in expected position. Reviewed, dictated and finalized at location A. IMPRESSION: 1. Dilated small bowel loops throughout the abdomen with air-fluid levels which may represent ileus or partial obstruction. 2: Punctate right nonobstructing renal stone. Right internal ureteral stent in expected position.
--- NOTE | ~2021-01-20 | CT_ITS ---
EXAMINATION: CT cervical spine wo con DATE: 01/21/2021 01:44 INDICATION: Neck and shoulder pain post fall TECHNIQUE: Computed tomography (CT) of the cervical spine was performed without intravenous contrast. Automated exposure control and iterative reconstruction technique were employed. The dose-length pro duct was 605.33 mGy-cm. COMPARISON: 03/02/2020 FINDINGS: Mild cervical levocurvature. Reversal of the normal cervical lordosis. Unchanged 2 mm retrolisthesis C5 on C6 and C6 on C7. Vertebral body heights are normal. No fractures. Moderate to severe disc heigh t loss at C5-C6 through C7-T1. Atherosclerotic calcifications at the bilateral carotid bulbs and prox imal internal carotid arteries which may be hemodynamically significant. Right internal jugular centr al venous catheter with distal tip in the mid superior vena cava. Mild paraseptal emphysema at the ap ices of the lungs, right greater than left. The following disc levels are specifically discussed: C2-C3: The disc does not extend beyond the endplate margin. There is mild bilateral uncovertebral betsy nt osteoarthritis. There is mild bilateral facet joint osteoarthritis. There is no neural foraminal s tenosis. There is no central canal stenosis. C3-C4: The disc does not extend beyond the endplate margin. There is mild bilateral uncovertebral betsy nt osteoarthritis. There is moderate bilateral facet joint osteoarthritis. There is mild bilateral ne ural foraminal stenosis. There is no central canal stenosis. C4-C5: The disc does not extend beyond the endplate margin. There is mild bilateral uncovertebral betsy nt osteoarthritis. There is mild bilateral facet joint osteoarthritis. There is no neural foraminal s tenosis. There is no central canal stenosis. C5-C6: Posterior disc osteophyte complex. There is severe bilateral uncovertebral joint osteoarthriti s. There is mild bilateral facet joint osteoarthritis. There is mild bilateral neural foraminal steno sis. There is mild central canal stenosis. C6-C7: Posterior disc osteophyte complex. There is severe bilateral uncovertebral joint osteoarthriti s. There is mild bilateral facet joint osteoarthritis. There is mild left and moderate right neural f oraminal stenosis. There is mild central canal stenosis. C7-T1: Posterior disc osteophyte complex. There is severe bilateral uncovertebral joint osteoarthriti s. There is mild left and moderate right facet joint osteoarthritis. There is mild bilateral neural f oraminal stenosis. There is mild central canal stenosis. IMPRESSION: 1. Moderate cervical spondylosis. No acute osseous abnormality. Reviewed, dictated and finalized at location A.
--- NOTE | ~2021-01-20 | US_ITS ---
US renal BI 01/25/2021 08:32 Procedure: Realtime transabdominal ultrasound of the kidneys and bladder. Indication: Worsening renal function Comparison: No prior studies for comparison. Findings: Left kidney is surgically absent. Right renal echotexture is within normal limits without h ydronephrosis, contour deforming mass or renal calculi. Right kidney measures 11.9 cm. Bladder is not distended for evaluation. Impression: 1: Unremarkable renal ultrasound. Left kidney is surgically absent. Reviewed, dictated and finalized at location A. Impression: 1: Unremarkable renal ultrasound. Left kidney is surgically absent.
--- NOTE | ~2021-01-20 | CT_ITS ---
EXAMINATION: CT brain wo con DATE: 01/21/2021 01:44 INDICATION: Altered mental status post fall TECHNIQUE: Computed tomography (CT) of the head was performed without intravenous contrast. Sagittal and coronal reconstructions were performed. The mA was adjusted according to patient size. Iterative reconstruction technique was employed. The dose-length product was 605.33 mGy-cm. COMPARISON: head CT dated 08/31/2020 FINDINGS: No fracture. No acute intracranial hemorrhage, acute infarction or abnormal extra axial fluid collect ion. There is mild scattered white matter hypoattenuation consistent with chronic small vessel ischem ic disease. Ventricles are normal and symmetric. No mass/mass effect. Moderate mucosal thickening in the left sphenoid sinus. The orbits and mastoid air cells are normal. IMPRESSION: 1. No fracture or acute intracranial process. 2. Mild scattered white matter hypoattenuation consistent with chronic small vessel ischemic disease. Reviewed, dictated and finalized at location A. IMPRESSION: 1. No fracture or acute intracranial process. 2. Mild scattered white matter hypoattenuation consistent with chronic small ve ssel ischemic disease.
[2021-01-20 23:55] VITALS: BP 149/71; PULSE 94; RESP 14; TEMP 36.7; O2SAT 99
[2021-01-21] VITALS (11 sets, daily range): BP systolic 115–182; BP diastolic 66–89; PULSE 90–101; RESP 13–20; TEMP 36.1–37; O2SAT 97–100
--- NOTE | 2021-01-21 00:16 | ECG_ITS ---
Measurements Intervals [place] Rate: 92 P: 72 IA: 169 QRS: 84 QRSD: 99 T: 82 QT: 378 QTc: 470 Interpretive Statements SINUS RHYTHM BORDERLINE T WAVE ABNORMALITY- HIGH LATERAL LEADS BORDERLINE ECG Electronically Signed On 01-21-2021 6:30:08 CDT by Luis Enrique Madrigal D.O.
[2021-01-21 00:27] LABS: Basophils Percent Auto 0.5 % (0.2-1.2); Eosinophils Absolute Auto 0.6 K/mm3 (0-0.3); Eosinophils Percent Auto 7.1 % (0-4.4); Hematocrit 29.5 % (42.0-52.0); Hemoglobin 9.3 g/dL (14.0-18.0); Immature Granulocyte Absolute 0.06 K/mm3 (0.00-0.031); Immature Granulocyte Percent A 0.7 % (0-0.5); Lymphocytes Absolute Auto 1.47 K/mm3 (0.9-3.2); Lymphocytes Percent Auto 18.1 % (18.3-44.2); Mean Corpuscular HGB Conc 31.5 g/dl (32-36); Mean Corpuscular Hemoglobin 26.9 pg (26-34); Mean Corpuscular Volume 85.3 fl (80-100); Mean Platelet Volume 8.9 fl (7.4-10.4); Monocytes Absolute Auto 0.6 K/mm3 (0.1-0.6); Monocytes Percent Auto 7.7 % (2.6-8.5); Neutrophils Absolute Auto 5.4 K/mm3 (1.3-6.7); Neutrophils Percent Auto 65.9 % (45.5-73.1); Platelet Count Result 213 k/mm3 (150-375); Red Blood Count 3.46 M/mm3 (4.6-6.20); Red Cell Distribution Width 17.2 % (11.5-14.5); White Blood Count 8.1 K/mm3 (4.5-10.0)
[2021-01-21 00:50] LABS: Albumin Level 3.4 g/dL (3.5-5.1); Bilirubin,Total 0.3 mg/dL (0.2-1.3); Carbon Dioxide 19 mmol/L (22-30); Estimated CRCL calculation 32 ml/min; Estimated Glomerular Filt Rate 29
[2021-01-21 01:16] LABS: Alanine Aminotransferase 36 U/L (4-50); Alkaline Phosphatase 93 U/L (38-126); Anion Gap 9 mmol/L (8-16); Aspartate Amino Transferase 36 U/L (17-59); Blood Urea Nitrogen 59 mg/dL (9-20); Calcium 9.4 mg/dL (8.4-10.2); Chloride 108 mmol/L (98-107); Glucose 96 mg/dL (65-110); Potassium 5.5 mmol/L (3.4-5.0); Sodium 136 mmol/L (137-145)
[2021-01-21 01:16] LABS: Alveolar/Arterial O2 Gradient 30.9 mmHg; Base Excess ABG -5.3 mEq/l (+/-2.0); Device ROOM AIR; Fractional Inspired Oxygen 21 %; HCO3 ABG 19.8 mEq/l (22.0-26.0); Modified Allen's Test Pass; Oxygen Content ABG 14.1 %vol (16.0-22.0); Oxygen Saturation ABG 94.4 % (95.0-100.0); Oxyhemoglobin 92.5 % THb (90.0-100.0); PCO2 ABG 36.9 mmHg (35.0-45.0); PO2 ABG 74.6 mmHg (80.0-100.0); PO2 FiO2 Ratio Arterial Blood 3.55 %; Site Drawn RIGHT RADIAL; Total Hemoglobin 10.8 g/dL (12.0-18.0); pH ABG 7.347 (7.350-7.450)
[2021-01-21 01:30] LABS: Ethanol < 10 mg/dL (<10)
--- NOTE | 2021-01-21 01:30 | PC.NURSE ---
asked pt for urine sample. pt states he unable to go at this time.
--- NOTE | 2021-01-21 01:31 | PC.NURSE ---
pt to CT at this time.
[2021-01-21 01:34] LABS: Magnesium 1.6 mg/dL (1.6-2.3)
[2021-01-21 01:47] LABS: Troponin I < 0.012 ng/mL (0.000-0.034)
[2021-01-21] MEDS: SODIUM CHLORIDE 0.9% IV 1,000 ML 999 ML IV CONT (01:52)
--- NOTE | 2021-01-21 02:10 | PC.NURSE ---
pt states he is unable to give urine sample and states its okay to use a straight catheter. urine specimen obtained and sent to lab. This RN cleaned up pt, repositioned, and put on new diaper. no other requests at this time. pt resting w/ call light in reach.
[2021-01-21 02:49] LABS: Add Urine Microscopic? YES; Appearance Urine Clear (Clear); Bacteria Urine Trace /hpf; Bilirubin Urine Negative (Negative); Blood Urine Negative (Negative); Color Urine Yellow (Yellow); Glucose Urine UA Negative (Negative); Ketones Urine Negative (Negative); Leukocyte Esterase Ur Trace LEU/UL (Negative); Nitrate Urine Negative (Negative); Protein Urine 2+ mg/dL (Negative); RBC Urine 0-2 /hpf (0-2); Specific Grav Ur 1.009 (1.001-1.035); Urobilinogen Urine Negative mg/dL (<2.0)
[2021-01-21 03:28] LABS: Amphetamine Screen Urine Negative (Negative); Barbiturate Screen Urine Negative (Negative); Benzodiazepines Screen Urine Positive (Negative); Cannabinoid Screen Urine Negative (Negative); Cocaine Screen Urine Negative (Negative); Methadone Screen Urine Negative (Negative); Opiate Screen Urine Positive (Negative); Phencyclidine Screen Urine Negative (Negative)
--- NOTE | 2021-01-21 03:37 | ED.GENADULT ---
HPI - General Adult General Chief complaint: Altered Mental Status Stated complaint: AMS Time Seen by Provider: 01/21/21 00:36 History of Present Illness HPI narrative: Patient is a 60-year-old gentleman who presents the emergency department with chief complaint of altered mental status. Patient has had episodes of altered mental status whenever he has had urinary tract infections before in the past and also has a chronic central access that apparently was recently changed. The patient has had a above-knee amputation on the left and has a diverting colostomy. History is limited and family has not arrived Related Data Home Medications Medication Instructions Recorded Confirmed fluticasone propion-salmeterol 2 ea INHALATION DAILY 07/30/19 09/01/20 [Advair Diskus] gabapentin 300 mg TID 07/30/19 08/31/20 hydrocodone-acetaminophen 325 tablet PO 4-6XD PRN 07/30/19 08/31/20 prednisone 5 mg BID 07/30/19 08/31/20 tamsulosin 0.4 mg PO DAILY 07/30/19 09/01/20 duloxetine 30 mg PO HS 08/31/20 08/31/20 aspirin 81 mg PO DAILY 09/01/20 09/01/20 atorvastatin 40 mg PO DAILY 09/01/20 09/01/20 cholecalciferol (vitamin D3) 400 mg PO DAILY 09/01/20 09/01/20 sertraline 100 mg PO HS 09/01/20 09/01/20 Allergies Allergy/AdvReac Type Severity Reaction Status Date / Time oxycodone AdvReac Agitated Verified 09/01/20 00:34 Review of Systems Review of Systems: Narrative: A 10 system review of systems was completed on the patient and is negative except for what is stated in the HPI. Nursing and ancillary documentation was reviewed. 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 PAD (peripheral artery disease) Peripheral neuropathy Peripheral neuropathy Pneumonia Pneumonia Prostate CA Prostate cancer PVD (peripheral vascular disease) Renal cancer Renal cancer Right wrist fracture Rotator cuff arthropathy of both shoulders Seizure Seizure Short gut syndrome UTI (urinary tract infection) Surgical History Surgical History H/O bilateral cataract extraction H/O ileostomy H/O left nephrectomy H/O left nephrectomy H/O right wrist surgery H/O right wrist surgery H/O rotator cuff surgery History of back surgery History of cardiac catheterization History of cataract surgery History of colon resection History of urethral stent Hx of appendectomy Hx of cholecystectomy S/P PICC central line placement Social History Social History Smoking packs per day: 1.5 Smoking cigarettes per day: 30.0 Smoking status: Heavy tobacco smoker Tobacco type: cigarettes Alcohol intake: former Substance use: never Gender identity (if verbalized by the patient): Male Spiritual care concerns: No Exam Narrative: Exam Narrative: GENERAL: Well-appearing, well-nourished, and in no acute distress. HEAD: Normocephalic, atraumatic. EYES: PERRLA and EOMI. ENT: Nares clear, no rhinorrhea or epistaxis. Mucous membranes moist. NECK: Supple. CHEST: Clear to auscultation. No respiratory distress. HEART: Regular rate and rhythm. No murmur heard. Normal peripheral pulses. ABDOMEN: Soft, nontender, there is a diverting colostomy present, nondistended, normal active bowel sounds. EXTREMITIES: Normal range of motion. No edema. There is an above-knee amputation of the left lower extremity SKIN: Warm,
--- NOTE | 2021-01-21 04:48 | PC.NURSE ---
pt continuously trying to get out of bed. placed a bed alarm on pt. pt getting angry and stating Im never coming back to this place pt diaper changed.
--- NOTE | 2021-01-21 05:41 | ADMGEN ---
This patient, Fernandez Russell, was admitted to Medical Room 255-. Patient/family oriented to hospital policies and general routines including ID bracelet, bed and alarms, visiting hours, pain management, procedures, bathroom and other care routines, personal items, smoking policy, room service/diet, and visiting hours. Information on how to activate the Rapid Response Team has been discussed. Patient/Family are encouraged to report perceived risks to care and to ask questions if they do not understand what they are told or what they should do.
--- NOTE | 2021-01-21 06:07 | PM.IMHP ---
H&P: HPI History of Present Illness Date/Time: 01/21/21 06:07 Chief Complaint: Altered mental status Narrative: Source of information: Past medical records and ER records. Patient is a poor historian. 60-year-old male with past medical history of colorectal cancer status post ileostomy, chronic kidney disease stage 3, hypertension and chronic pain syndrome who presented to the ER via EMS from home due to 3-4 days of altered mental status. The family sent him into the ER because they were concerned he may have A bacteremia as the patient has acted similarly when he had prior bacteremic events. He had also acted similarly when he had UTIs in the past. The patient has a PICC line in place that was recently exchanged presumably due to infection. The patient had reportedly have a a fall on gravel earlier in the day but had denied hitting his head. He has CT performed in the ER which was negative for any acute intercranial process. The patient's family did not come with him to the ER and is not available at the time of my evaluation to provide more history. While in the ER the patient managed to get out of his bed and hop across the room on his 1 leg and sips by the door to his ER room. At that time he was altered and removed his ileostomy creating a mess. Review of Systems Review of Systems: ROS unobtainable: Yes unobtainable due to mental status PMFSH Past Medical History Medical History (Updated 01/21/21 @ 06:15 by Tessa Fuentes DO) Anemia Bowel obstruction CAD (coronary artery disease) Chronic pain CKD (chronic kidney disease) Colorectal cancer COPD (chronic obstructive pulmonary disease) DVT (deep venous thrombosis) Emphysema of lung Gangrene status post left [id number] amputation GI bleed History of left above knee amputation HLD (hyperlipidemia) HTN (hypertension) Lymphoma Yao syndrome PAD (peripheral artery disease) Peripheral neuropathy Pneumonia Prostate cancer PVD (peripheral vascular disease) Renal cancer Right wrist fracture Rotator cuff arthropathy of both shoulders Seizure Short gut syndrome UTI (urinary tract infection) Surgical History Surgical History (Updated 01/21/21 @ 06:10 by Tessa Fuentes DO) H/O bilateral cataract extraction H/O ileostomy H/O left nephrectomy H/O right wrist surgery H/O rotator cuff surgery History of back surgery History of cardiac catheterization History of cataract surgery History of colon resection History of left above knee amputation History of urethral stent Hx of appendectomy Hx of cholecystectomy S/P PICC central line placement Family History Family History Other Unknown family medical history Social History Social History Smoking packs per day: 1.5 Smoking cigarettes per day: 30.0 Smoking status: Heavy tobacco smoker Alcohol intake: former Substance use: never Gender identity (if verbalized by the patient): Male Spiritual care concerns: No Meds Home Medications and Allergies Home Medications Medication Instructions Recorded Confirmed Type gabapentin 300 mg PO TID 07/30/19 01/21/21 History hydrocodone-acetaminophen 325 tablet PO Q6H PRN 07/30/19 01/21/21 History prednisone 5 mg PO BID 07/30/19 01/21/21 History duloxetine 30 mg PO HS 08/31/20 01/21/21 History aspirin 81 mg PO DAILY 09/01/20 01/21/21 History cholecalciferol (vitamin D3) 400 mg PO DAILY 09/01/20 01/21/21 History sertraline 100 mg PO HS 09/01/20 01/21/21 History alprazolam 1 mg PO TID PRN #0 tablet 09/02/20 01/21/21 Rx amlodipine 5 mg PO DAILY 01/21/21 01/21/21 History cyclobenzaprine 10 mg PO HS PRN 01/21/21 01/21/21 History ondansetron 4 mg PO Q8H PRN 01/21/21 01/21/21 History Allergies Allergy/AdvReac Type Severity Reaction Status Date / Time oxycodone AdvReac Agitated Verified 09/01/20 00:34 Vital Signs Vital Signs - 24 hr 0
--- NOTE | 2021-01-21 06:32 | PC.NURSE ---
Spoke to pt who gave information about pt. stated that pt receives TPN 3x per week and IV fluids
[2021-01-21] MEDS: GABAPENTIN 300 MG CAPSULE PO ×3 (09:11→16:25)
[2021-01-21] MEDS: ASPIRIN 81 MG ENTERIC TABLET PO (09:12)
[2021-01-21] MEDS: predniSONE 5 MG TABLET PO ×2 (09:13→16:25)
[2021-01-21] MEDS: CHOLECALCIFEROL 400 UNITS TABLET (VIT D) PO (09:16)
[2021-01-21] MEDS: amLODIPine BESYLATE 5 MG TABLET PO (09:18)
[2021-01-21 10:33] LABS: Anion Gap 10 mmol/L (8-16); Blood Urea Nitrogen 49 mg/dL (9-20); Calcium 9.6 mg/dL (8.4-10.2); Carbon Dioxide 19 mmol/L (22-30); Chloride 111 mmol/L (98-107); Estimated CRCL calculation 33 ml/min; Estimated Glomerular Filt Rate 32; Glucose 88 mg/dL (65-110); Potassium 5.2 mmol/L (3.4-5.0); Sodium 140 mmol/L (137-145)
[2021-01-21] MEDS: CENTRAL LINE FLUSH 10 ML IV PUSH ×3 (12:36→22:10)
--- NOTE | 2021-01-21 12:47 | PM.IMPN ---
Progress Note: A&P Assessment and Plan (1) Altered mental status: Qualifiers: Altered mental status type: delirium Qualified Code(s): R41.0 - Disorientation, unspecified Code(s): R41.82 - Altered mental status, unspecified Status: Acute Assessment and Plan: 01/21/21 12:47 altered mental status most likely due to toxic encephalopathy from pain medications. Metabolic encephalopathy due to infection less likely. However blood cultures are pending. The patient's UA does not seem consistent with UTI patient does not have white count or evidence of acute infection. Will hold the patient's [place] and benzodiazepines. The patient's blood pressures were uncontrolled with systolic blood pressures in the 160s in the ER. His 1st blood pressure arriving to the medical floor was elevated into the 180s but that was just after arrival the patient was restless. Will resume the patient's home antihypertensives and monitor blood pressure closely. Will add p.r.n. hydralazine for systolic blood pressures greater than 160. Patient has chronic kidney disease in his creatinine appears to be near baseline. He does have some mild hyperkalemia. Will place patient on heart healthy low-potassium diet. Will repeat BMP in a.m.. 01/21 today patient still remains somnolent not providing any ROS, he open his eyes and looks at you but does not say any thing. his CT of head and neck did not show any acute injury. most likely patient is encephalopathy 2/2 pain medication unlikel infectinous process, his O2 sats and Vitals are stable, will follow up blood and urine culture, will have PT/OT evaluate that patient. (2) Chronic pain syndrome: Code(s): G89.4 - Chronic pain syndrome Status: Chronic Assessment and Plan: will hold the pain medication and monitor (3) Uncontrolled hypertension: Code(s): I10 - Essential (primary) hypertension Status: Acute Assessment and Plan: will continue home regimen and monitor (4) CKD (chronic kidney disease): Qualifiers: Chronic kidney disease stage: stage 3 (moderate) Chronic kidney disease stage 3 subtype: stage 3b (GFR 30-44) Qualified Code(s): N18.32 - Chronic kidney disease, stage 3b Code(s): N18.9 - Chronic kidney disease, unspecified Status: Chronic Assessment and Plan: will gently hydrate the patient and monitor kidney function Additional Plan altered mental status most likely due to toxic encephalopathy from pain medications. Metabolic encephalopathy due to infection less likely. However blood cultures are pending. The patient's UA does not seem consistent with UTI patient does not have white count or evidence of acute infection. Will hold the patient's [place] and benzodiazepines. The patient's blood pressures were uncontrolled with systolic blood pressures in the 160s in the ER. His 1st blood pressure arriving to the medical floor was elevated into the 180s but that was just after arrival the patient was restless. Will resume the patient's home antihypertensives and monitor blood pressure closely. Will add p.r.n. hydralazine for systolic blood pressures greater than 160. Patient has chronic kidney disease in his creatinine appears to be near baseline. He does have some mild hyperkalemia. Will place patient on heart healthy low-potassium diet. Will repeat BMP in a.m.. Patient has been admitted as observation status. Subjective Date/time seen: 01/21/21 12:47 altered mental status most likely due to toxic encephalopathy from pain medications. Metabolic encephalopathy due to infection less likely. However blood cultures are pending. The patient's UA does not seem consistent with UTI patient does not have white count or evidence of acute infection. Will hold the patient's [place] and benzodiazepines. The patient's blood pressures were uncontrolled with systolic blood pressures in the 160s in the ER. His 1st
[2021-01-21] MEDS: ALPRAZolam (*CRX) 0.5 MG TABLET 1 MG PO (16:25)
[2021-01-21] MEDS: DULoxetine HCL 30 MG CAPSULE.DR PO (20:12)
[2021-01-21] MEDS: SERTRALINE HCL 50 MG TABLET 100 MG PO (20:12)
[2021-01-21] MEDS: HYDROcodone/acetaminophen (*CRX) 10-325 MG TABLET 1 TAB PO (20:18)
[2021-01-22] VITALS (9 sets, daily range): BP systolic 147–163; BP diastolic 80–86; PULSE 79–103; RESP 16–18; TEMP 36.4–36.7; O2SAT 95–97
[2021-01-22 05:56] LABS: Basophils Percent Auto 0.3 % (0.2-1.2); Eosinophils Absolute Auto 0.2 K/mm3 (0-0.3); Eosinophils Percent Auto 1.9 % (0-4.4); Hematocrit 31.4 % (42.0-52.0); Hemoglobin 10.3 g/dL (14.0-18.0); Immature Granulocyte Absolute 0.04 K/mm3 (0.00-0.031); Immature Granulocyte Percent A 0.4 % (0-0.5); Lymphocytes Absolute Auto 1.57 K/mm3 (0.9-3.2); Lymphocytes Percent Auto 17.4 % (18.3-44.2); Mean Corpuscular HGB Conc 32.8 g/dl (32-36); Mean Corpuscular Hemoglobin 27.4 pg (26-34); Mean Corpuscular Volume 83.5 fl (80-100); Mean Platelet Volume 9.1 fl (7.4-10.4); Monocytes Absolute Auto 0.6 K/mm3 (0.1-0.6); Monocytes Percent Auto 6.5 % (2.6-8.5); Neutrophils Absolute Auto 6.6 K/mm3 (1.3-6.7); Neutrophils Percent Auto 73.5 % (45.5-73.1); Platelet Count Result 227 k/mm3 (150-375); Red Blood Count 3.76 M/mm3 (4.6-6.20); Red Cell Distribution Width 16.5 % (11.5-14.5)
[2021-01-22] MEDS: CENTRAL LINE FLUSH 10 ML IV PUSH ×4 (06:03→20:58)
[2021-01-22 06:05] LABS: Anion Gap 12 mmol/L (8-16); Blood Urea Nitrogen 43 mg/dL (9-20); Calcium 10.1 mg/dL (8.4-10.2); Carbon Dioxide 21 mmol/L (22-30); Chloride 103 mmol/L (98-107); Estimated CRCL calculation 30 ml/min; Estimated Glomerular Filt Rate 29; Glucose 107 mg/dL (65-110); Magnesium 1.5 mg/dL (1.6-2.3); Potassium 5.2 mmol/L (3.4-5.0); Sodium 136 mmol/L (137-145)
[2021-01-22] MEDS: HYDROcodone/acetaminophen (*CRX) 10-325 MG TABLET 1 TAB PO (06:15)
[2021-01-22] MEDS: ALPRAZolam (*CRX) 0.5 MG TABLET 1 MG PO (08:51)
[2021-01-22] MEDS: amLODIPine BESYLATE 5 MG TABLET PO (08:52)
[2021-01-22] MEDS: ASPIRIN 81 MG ENTERIC TABLET PO (08:52)
[2021-01-22] MEDS: GABAPENTIN 300 MG CAPSULE PO ×3 (08:52→17:56)
[2021-01-22] MEDS: CHOLECALCIFEROL 400 UNITS TABLET (VIT D) PO (08:52)
[2021-01-22] MEDS: SODIUM POLYSTYRENE SULFONONATE 15 GM/60 ML BTL PO (08:52)
[2021-01-22] MEDS: predniSONE 5 MG TABLET PO ×2 (08:52→17:56)
[2021-01-22 10:25] LABS: Magnesium 1.6 mg/dL (1.6-2.3)
--- NOTE | 2021-01-22 12:43 | PM.IMPN ---
Progress Note: A&P Assessment and Plan (1) Altered mental status: Qualifiers: Altered mental status type: delirium Qualified Code(s): R41.0 - Disorientation, unspecified Code(s): R41.82 - Altered mental status, unspecified Status: Acute Assessment and Plan: 01/22/21 12:43 altered mental status most likely due to toxic encephalopathy from pain medications. Metabolic encephalopathy due to infection less likely. However blood cultures are pending. The patient's UA does not seem consistent with UTI patient does not have white count or evidence of acute infection. Will hold the patient's [place] and benzodiazepines. The patient's blood pressures were uncontrolled with systolic blood pressures in the 160s in the ER. His 1st blood pressure arriving to the medical floor was elevated into the 180s but that was just after arrival the patient was restless. Will resume the patient's home antihypertensives and monitor blood pressure closely. Will add p.r.n. hydralazine for systolic blood pressures greater than 160. Patient has chronic kidney disease in his creatinine appears to be near baseline. He does have some mild hyperkalemia. Will place patient on heart healthy low-potassium diet. Will repeat BMP in a.m.. 01/21 today patient still remains somnolent not providing any ROS, he open his eyes and looks at you but does not say any thing. his CT of head and neck did not show any acute injury. most likely patient is encephalopathy 2/2 pain medication unlikel infectinous process, his O2 sats and Vitals are stable, will follow up blood and urine culture, will have PT/OT evaluate that patient. 01/22 Today patient little more awake states he wants to go home, denies any abdominal pain nausea, vomiting, fever or chills. however patient appears quite ill, Preliminary blood culture is growth Gram-positive cocci in clusters started the patient on vancomycin will follow on identification and sensitivity, urine was not sent for culture, we have resumed patient home pain medication, will have a PT OT evaluate the patient and further recommendation to follow. (2) Chronic pain syndrome: Code(s): G89.4 - Chronic pain syndrome Status: Chronic Assessment and Plan: will hold the pain medication and monitor (3) Uncontrolled hypertension: Code(s): I10 - Essential (primary) hypertension Status: Acute Assessment and Plan: will continue home regimen and monitor (4) CKD (chronic kidney disease): Qualifiers: Chronic kidney disease stage: stage 3 (moderate) Chronic kidney disease stage 3 subtype: stage 3b (GFR 30-44) Qualified Code(s): N18.32 - Chronic kidney disease, stage 3b Code(s): N18.9 - Chronic kidney disease, unspecified Status: Chronic Assessment and Plan: will gently hydrate the patient and monitor kidney function Subjective Date/time seen: 01/22/21 12:43 altered mental status most likely due to toxic encephalopathy from pain medications. Metabolic encephalopathy due to infection less likely. However blood cultures are pending. The patient's UA does not seem consistent with UTI patient does not have white count or evidence of acute infection. Will hold the patient's [place] and benzodiazepines. The patient's blood pressures were uncontrolled with systolic blood pressures in the 160s in the ER. His 1st blood pressure arriving to the medical floor was elevated into the 180s but that was just after arrival the patient was restless. Will resume the patient's home antihypertensives and monitor blood pressure closely. Will add p.r.n. hydralazine for systolic blood pressures greater than 160. Patient has chronic kidney disease in his creatinine appears to be near baseline. He does have some mild hyperkalemia. Will place patient on heart healthy low-potassium diet. Will repeat BMP in a.m.. 01/21 today patient still remains somnolent not providin
[2021-01-22 15:37] LABS: Anion Gap 9 mmol/L (8-16); Blood Urea Nitrogen 39 mg/dL (9-20); Calcium 10.2 mg/dL (8.4-10.2); Carbon Dioxide 26 mmol/L (22-30); Chloride 101 mmol/L (98-107); Estimated CRCL calculation 29 ml/min; Estimated Glomerular Filt Rate 28; Glucose 131 mg/dL (65-110); Magnesium 1.6 mg/dL (1.6-2.3); Potassium 5.3 mmol/L (3.4-5.0); Sodium 136 mmol/L (137-145)
[2021-01-22] MEDS: SERTRALINE HCL 50 MG TABLET 100 MG PO (20:57)
[2021-01-22] MEDS: CYCLOBENZAPRINE HCL 10 MG TABLET PO (20:57)
[2021-01-22] MEDS: DULoxetine HCL 30 MG CAPSULE.DR PO (20:58)
[2021-01-23] VITALS (9 sets, daily range): BP systolic 131–150; BP diastolic 81–87; PULSE 78–92; RESP 16–18; TEMP 36.3–36.4; O2SAT 94–100
--- NOTE | 2021-01-23 | ECHO_ITS ---
Patient Info Name: Fernandez Russell Age: 60 years : 1960 Gender: Male Ht: 74 in Wt: 155 lbs BSA: 1.90 m2 HR: 83 bpm BP: 150 / 87 mmHg Technical Quality: Poor Exam Date: 01/23/2021 12:07 PM Exam Location: [facility] Pulmonary Patient Status: Inpatient Admit Date: 01/22/2021 Staff Ordering Physician: Gladys Emmanuel MD Motor Vehicle Field Representative: Kendra Toussaint RDCS Attending Provider: Tessa Fuentes DO Exam Type: CA echo dop color flow w con Study Info Complete two-dimensional, color flow and Doppler transthoracic echocardiogram is performed with contrast to opacify the left ventricle and to improve the deliniation of the left ventricle endocardial borders. Contrast/Agitated Saline Contrast/Ag. Saline: Definity Amount: 4.00 ml Reason for Poor Study: patient body habitus Summary 1. Technically difficult study with limited views. 2. No prior echo available for comparison. 3. Left ventricular chamber dimension is normal. 4. Left ventricular wall thickness is mildly increased. 5. Left ventricular systolic function is normal with an ejection fraction by Biplane Method of Discs of 69 %. 6. The left ventricular diastolic function is grade I diastolic dysfunction. 7. Aortic valve is not well visualized. 8. No mitral valve vegetation visualized. 9. The tricuspid valve is not well visualized. Left Ventricle Left ventricular chamber dimension is normal. Left ventricular wall thickness is mildly increased. Left ventricular systolic function is normal with an ejection fraction by Biplane Method of Discs of 69 %. The left ventricular diastolic function is grade I diastolic dysfunction. Right Ventricle Right ventricular chamber dimension is normal. Right ventricular systolic function is normal. Left Atria Left atrial chamber dimension is normal. Right Atria Right atrial chamber dimension is normal. Atrial Septum Interatrial septum not well visualized by 2D imaging. Aortic Valve Aortic valve is not well visualized. mild sclerosis of the aortic valve leaflets. There is no aortic valve stenosis. There is no aortic valve regurgitation. Pulmonic Valve Pulmonary valve is not well visualized. There is trace pulmonic regurgitation. There is no pulmonic valve stenosis. Mitral Valve The mitral valve has normal leaflets. No mitral valve vegetation visualized. There is mild mitral valve regurgitation. There is no mitral valve stenosis. Tricuspid Valve The tricuspid valve is not well visualized. There is trace tricuspid valve regurgitation. There is no significant tricuspid valve stenosis. Pericardium/Pleural Pericardium is normal in appearance with no evidence for significant pericardial effusion. Inferior Vena Cava Normal inferior vena cava with >50% collapse upon inspiration consistent with normal right atrial pressure, Empty. Aorta The aortic root is not well visualized. Left Ventricular Outflow Tract Name Value Normal LVOT 2D LVOT Diameter 1.87 cm LVOT Doppler LVOT Peak Gradient 5 mmHg LVOT Mean Gradient
[2021-01-23] MEDS: MENTHOL 10% / METHYL SALICYLATE 15% 57 GM TUBE 1 APPLIC TOPICAL ×2 (02:38→13:58)
[2021-01-23 05:59] LABS: Mean Corpuscular HGB Conc 33.3 g/dl (32-36); Mean Corpuscular Hemoglobin 27.1 pg (26-34); Mean Corpuscular Volume 81.3 fl (80-100); Mean Platelet Volume 8.9 fl (7.4-10.4); Platelet Count Result 252 k/mm3 (150-375); Red Blood Count 4.06 M/mm3 (4.6-6.20); Red Cell Distribution Width 16.3 % (11.5-14.5); White Blood Count 9.9 K/mm3 (4.5-10.0)
[2021-01-23 06:12] LABS: Anion Gap 11 mmol/L (8-16); Blood Urea Nitrogen 44 mg/dL (9-20); Calcium 9.5 mg/dL (8.4-10.2); Carbon Dioxide 23 mmol/L (22-30); Chloride 99 mmol/L (98-107); Estimated CRCL calculation 27 ml/min; Estimated Glomerular Filt Rate 25; Glucose 106 mg/dL (65-110); Potassium 5.1 mmol/L (3.4-5.0); Sodium 133 mmol/L (137-145)
[2021-01-23] MEDS: CENTRAL LINE FLUSH 10 ML IV PUSH ×4 (07:15→23:41)
[2021-01-23] MEDS: ASPIRIN 81 MG ENTERIC TABLET PO (08:46)
[2021-01-23] MEDS: CHOLECALCIFEROL 400 UNITS TABLET (VIT D) PO (08:46)
[2021-01-23] MEDS: amLODIPine BESYLATE 5 MG TABLET PO (08:46)
[2021-01-23] MEDS: GABAPENTIN 300 MG CAPSULE PO ×3 (08:46→18:22)
[2021-01-23] MEDS: predniSONE 5 MG TABLET PO ×2 (08:46→18:23)
--- NOTE | 2021-01-23 11:03 | PM.IMPN ---
Progress Note: A&P Assessment and Plan (1) Altered mental status: Qualifiers: Altered mental status type: delirium Qualified Code(s): R41.0 - Disorientation, unspecified Code(s): R41.82 - Altered mental status, unspecified Status: Acute Assessment and Plan: 01/22/21 12:43 altered mental status most likely due to toxic encephalopathy from pain medications. Metabolic encephalopathy due to infection less likely. However blood cultures are pending. The patient's UA does not seem consistent with UTI patient does not have white count or evidence of acute infection. Will hold the patient's [place] and benzodiazepines. The patient's blood pressures were uncontrolled with systolic blood pressures in the 160s in the ER. His 1st blood pressure arriving to the medical floor was elevated into the 180s but that was just after arrival the patient was restless. Will resume the patient's home antihypertensives and monitor blood pressure closely. Will add p.r.n. hydralazine for systolic blood pressures greater than 160. Patient has chronic kidney disease in his creatinine appears to be near baseline. He does have some mild hyperkalemia. Will place patient on heart healthy low-potassium diet. Will repeat BMP in a.m.. 01/23/21 11:03 01/21 today patient still remains somnolent not providing any ROS, he open his eyes and looks at you but does not say any thing. his CT of head and neck did not show any acute injury. most likely patient is encephalopathy 2/2 pain medication unlikel infectinous process, his O2 sats and Vitals are stable, will follow up blood and urine culture, will have PT/OT evaluate that patient. 01/22 Today patient little more awake states he wants to go home, denies any abdominal pain nausea, vomiting, fever or chills. however patient appears quite ill, Preliminary blood culture is growth Gram-positive cocci in clusters started the patient on vancomycin will follow on identification and sensitivity, urine was not sent for culture, we have resumed patient home pain medication, will have a PT OT evaluate the patient and further recommendation to follow. 01/23 patient with bacteremia with Gram-positive cocci and cluster will was started on vancomycin, patient remains clinically stable his white counts a normal he has no fever, he has no complaint abdominal pain nausea or vomiting fever or chills, we have ordered cardiac echo to further evaluate, will continue to monitor will follow-up on blood culture for identification and sensitivity. will have a PT OT evaluate the patient. (2) Chronic pain syndrome: Code(s): G89.4 - Chronic pain syndrome Status: Chronic Assessment and Plan: will hold the pain medication and monitor (3) Uncontrolled hypertension: Code(s): I10 - Essential (primary) hypertension Status: Acute Assessment and Plan: will continue home regimen and monitor (4) CKD (chronic kidney disease): Qualifiers: Chronic kidney disease stage: stage 3 (moderate) Chronic kidney disease stage 3 subtype: stage 3b (GFR 30-44) Qualified Code(s): N18.32 - Chronic kidney disease, stage 3b Code(s): N18.9 - Chronic kidney disease, unspecified Status: Chronic Assessment and Plan: will gently hydrate the patient and monitor kidney function Subjective Date/time seen: 01/23/21 11:03 01/21 today patient still remains somnolent not providing any ROS, he open his eyes and looks at you but does not say any thing. his CT of head and neck did not show any acute injury. most likely patient is encephalopathy 2/2 pain medication unlikel infectinous process, his O2 sats and Vitals are stable, will follow up blood and urine culture, will have PT/OT evaluate that patient. 01/22 Today patient little more awake states he wants to go home, denies any abdominal pain nausea, vomiting, fever or chills. however patient appears quite ill, Preliminary blood c
[2021-01-23] MEDS: PERFLUTREN LIPID MICROSPHERES 1.5 ML VIAL DILUTED TO 10 ML TOTAL VOLUME (12:45)
--- NOTE | 2021-01-23 14:28 | PC.NURSE ---
Addendum entered by Evangelina Navas, CARMENLP 01/23/21 14:32: pt's stated that pt fell in bath on Monday, 01/17 and has c/o of neck pain since wanting [facility] for his pain; pt's is very concerned that pt is heading into kidney failure and/or that he has a blood infection again because his behavior is extreme and uncharacteristic; pt's further stated that if pt's kidney is failing they may need to consult with hospice because she believes that pt has given up and suffered enough and is very depressed Original Note: attempted to speak with pt for assessment, et al. several times throughout morning and afternoon; pt is non-responsive (doesn't answer questions verbally or non-verbally until question has been asked at least three times at which time pt may or may not nod/shake his head); the only communication pt is willing to provide is expressing his desire to go home pt's called and asked to be updated on pt's labs and status; stated that pt has a morphine pump in stomach, pt receives TPN ad NS 3x/week and has not received either since Monday;
[2021-01-23] MEDS: DULoxetine HCL 30 MG CAPSULE.DR PO (20:25)
[2021-01-23] MEDS: SERTRALINE HCL 50 MG TABLET 100 MG PO (20:25)
[2021-01-24] VITALS (9 sets, daily range): BP systolic 107–137; BP diastolic 71–97; PULSE 79–104; RESP 16–18; TEMP 36.1–36.6; O2SAT 95–97
[2021-01-24] MEDS: HYDROcodone/acetaminophen (*CRX) 10-325 MG TABLET 1 TAB PO ×2 (02:54→10:35)
[2021-01-24] MEDS: MENTHOL 10% / METHYL SALICYLATE 15% 57 GM TUBE 1 APPLIC TOPICAL (05:05)
[2021-01-24 05:54] LABS: Hematocrit 39.2 % (42.0-52.0); Hemoglobin 13.1 g/dL (14.0-18.0); Mean Corpuscular HGB Conc 33.4 g/dl (32-36); Mean Corpuscular Hemoglobin 26.9 pg (26-34); Mean Corpuscular Volume 80.5 fl (80-100); Mean Platelet Volume 9.1 fl (7.4-10.4); Platelet Count Result 346 k/mm3 (150-375); Red Blood Count 4.87 M/mm3 (4.6-6.20); Red Cell Distribution Width 16.3 % (11.5-14.5); White Blood Count 15.3 K/mm3 (4.5-10.0)
[2021-01-24 06:12] LABS: Anion Gap 17 mmol/L (8-16); Blood Urea Nitrogen 59 mg/dL (9-20); Carbon Dioxide 22 mmol/L (22-30); Chloride 93 mmol/L (98-107); Estimated CRCL calculation 19 ml/min; Estimated Glomerular Filt Rate 17; Glucose 103 mg/dL (65-110); Sodium 132 mmol/L (137-145)
--- NOTE | 2021-01-24 09:31 | PCPTNOTE ---
Pt has been vomiting all morning. OTR spoke with MD - to stop PT/OT at this time. He will reorder when pt is able to participate with PT and OT.
--- NOTE | 2021-01-24 09:35 | PCOTNOTE ---
Attempted OT evaluation, spoke with MD, due to patient condition will cancel OT at this time and MD can re-order when patient is more appropriate and can participate with therapy.
[2021-01-24] MEDS: SODIUM CHLORIDE 0.9% IV 1,000 ML 100 ML IV CONT ×2 (09:42→20:51)
[2021-01-24] MEDS: CLINDAMYCIN 600 MG/D5W 50 ML 600 MG/50 ML PIGGYBACK 100 MG IVPB ×2 (09:43→17:23)
--- NOTE | 2021-01-24 10:07 | PC.NURSE ---
Am medications held until results of KUB as pt had emesis this am, and reported emesis time two per Midnight RN.
[2021-01-24] MEDS: CHOLECALCIFEROL 400 UNITS TABLET (VIT D) PO (10:34)
[2021-01-24] MEDS: amLODIPine BESYLATE 5 MG TABLET PO (10:34)
[2021-01-24] MEDS: ASPIRIN 81 MG ENTERIC TABLET PO (10:34)
[2021-01-24] MEDS: GABAPENTIN 300 MG CAPSULE PO ×3 (10:34→17:21)
[2021-01-24] MEDS: predniSONE 5 MG TABLET PO ×2 (10:34→17:21)
[2021-01-24] MEDS: CENTRAL LINE FLUSH 10 ML IV PUSH (10:35)
--- NOTE | 2021-01-24 10:53 | PM.IMPN ---
Progress Note: A&P Assessment and Plan (1) Altered mental status: Qualifiers: Altered mental status type: delirium Qualified Code(s): R41.0 - Disorientation, unspecified Code(s): R41.82 - Altered mental status, unspecified Status: Acute Assessment and Plan: 01/22/21 12:43 altered mental status most likely due to toxic encephalopathy from pain medications. Metabolic encephalopathy due to infection less likely. However blood cultures are pending. The patient's UA does not seem consistent with UTI patient does not have white count or evidence of acute infection. Will hold the patient's [place] and benzodiazepines. The patient's blood pressures were uncontrolled with systolic blood pressures in the 160s in the ER. His 1st blood pressure arriving to the medical floor was elevated into the 180s but that was just after arrival the patient was restless. Will resume the patient's home antihypertensives and monitor blood pressure closely. Will add p.r.n. hydralazine for systolic blood pressures greater than 160. Patient has chronic kidney disease in his creatinine appears to be near baseline. He does have some mild hyperkalemia. Will place patient on heart healthy low-potassium diet. Will repeat BMP in a.m.. 01/24/21 10:53 01/21 today patient still remains somnolent not providing any ROS, he open his eyes and looks at you but does not say any thing. his CT of head and neck did not show any acute injury. most likely patient is encephalopathy 2/2 pain medication unlikel infectinous process, his O2 sats and Vitals are stable, will follow up blood and urine culture, will have PT/OT evaluate that patient. 01/22 Today patient little more awake states he wants to go home, denies any abdominal pain nausea, vomiting, fever or chills. however patient appears quite ill, Preliminary blood culture is growth Gram-positive cocci in clusters started the patient on vancomycin will follow on identification and sensitivity, urine was not sent for culture, we have resumed patient home pain medication, will have a PT OT evaluate the patient and further recommendation to follow. 01/23 patient with bacteremia with Gram-positive cocci and cluster will was started on vancomycin, patient remains clinically stable his white counts a normal he has no fever, he has no complaint abdominal pain nausea or vomiting fever or chills, we have ordered cardiac echo to further evaluate, will continue to monitor will follow-up on blood culture for identification and sensitivity. will have a PT OT evaluate the patient. 01/24 patient has had few vomiting patient is a poor historian KUB was done did not show any small-bowel obstruction or ileus, patient blood culture is growing coagulase-negative staphylococci MRSA patient had been treated with vancomycin however patient kidney function as worsening creatinine is rising, will start vancomycin start the patient clindamycin, cardiac echo did not show any vegetation, communicated with Dr. Driscoll recommended to repeat the blood cultures if negative may stop antibiotics. started the patient IV fluids to help kidney function will continue to monitor. (2) Chronic pain syndrome: Code(s): G89.4 - Chronic pain syndrome Status: Chronic Assessment and Plan: will hold the pain medication and monitor (3) Uncontrolled hypertension: Code(s): I10 - Essential (primary) hypertension Status: Acute Assessment and Plan: will continue home regimen and monitor (4) CKD (chronic kidney disease): Qualifiers: Chronic kidney disease stage: stage 3 (moderate) Chronic kidney disease stage 3 subtype: stage 3b (GFR 30-44) Qualified Code(s): N18.32 - Chronic kidney disease, stage 3b Code(s): N18.9 - Chronic kidney disease, unspecified Status: Chronic Assessment and Plan: will gently hydrate the patient and monitor kidney function Additional Plan altered me
[2021-01-24] MEDS: ALPRAZolam (*CRX) 0.5 MG TABLET 1 MG PO ×2 (15:43→23:58)
[2021-01-24] MEDS: ONDANSETRON INJ 4 MG/2 ML VIAL IV PUSH (17:19)
[2021-01-24] MEDS: SERTRALINE HCL 50 MG TABLET 100 MG PO (20:50)
[2021-01-24] MEDS: guaiFENesin 12 HR 600 MG TABCR PO (20:50)
[2021-01-24] MEDS: DULoxetine HCL 30 MG CAPSULE.DR PO (20:51)
[2021-01-25] VITALS (9 sets, daily range): BP systolic 132–152; BP diastolic 75–83; PULSE 75–94; RESP 18–20; TEMP 36.4–36.6; O2SAT 95–98
[2021-01-25] MEDS: ONDANSETRON INJ 4 MG/2 ML VIAL IV PUSH (00:19)
[2021-01-25] MEDS: CLINDAMYCIN 600 MG/D5W 50 ML 600 MG/50 ML PIGGYBACK 100 MG IVPB ×3 (01:29→17:47)
[2021-01-25 05:55] LABS: Hematocrit 37.6 % (42.0-52.0); Hemoglobin 12.5 g/dL (14.0-18.0); Mean Corpuscular HGB Conc 33.2 g/dl (32-36); Mean Corpuscular Volume 81.2 fl (80-100); Mean Platelet Volume 8.7 fl (7.4-10.4); Platelet Count Result 290 k/mm3 (150-375); Red Blood Count 4.63 M/mm3 (4.6-6.20); Red Cell Distribution Width 16.7 % (11.5-14.5); White Blood Count 14.4 K/mm3 (4.5-10.0)
[2021-01-25 06:22] LABS: Anion Gap 18 mmol/L (8-16); Blood Urea Nitrogen 83 mg/dL (9-20); Calcium 8.4 mg/dL (8.4-10.2); Carbon Dioxide 21 mmol/L (22-30); Chloride 94 mmol/L (98-107); Estimated CRCL calculation 11 ml/min; Estimated Glomerular Filt Rate 9; Glucose 83 mg/dL (65-110); Potassium 6.4 mmol/L (3.4-5.0); Sodium 133 mmol/L (137-145)
--- NOTE | 2021-01-25 06:35 | ECG_ITS ---
Measurements Intervals [place] Rate: 86 P: 76 MD: 158 QRS: 83 QRSD: 99 T: 98 QT: 395 QTc: 473 Interpretive Statements SINUS RHYTHM INCOMPLETE RIGHT BUNDLE BRANCH BLOCK BORDERLINE T WAVE ABNORMALITY- ANTEROLAT/HIGH LAT LEADS BORDERLINE ECG Electronically Signed On 01-25-2021 11:00:59 CDT by Luis Enrique Madrigal D.O.
[2021-01-25] MEDS: SODIUM CHLORIDE 0.9% IV 1,000 ML 100 ML IV CONT ×2 (06:55→17:46)
[2021-01-25] MEDS: CENTRAL LINE FLUSH 10 ML IV PUSH ×4 (06:57→20:24)
[2021-01-25] MEDS: INSULIN HUMAN REGULAR (*BKC) 100 UNITS/ML 10 UNITS SUB-Q (07:16)
[2021-01-25] MEDS: CALCIUM GLUCONATE 1,000 MG/10 ML VIAL 1000 MG IV PUSH (07:17)
[2021-01-25] MEDS: DEXTROSE 50% 25 GM/50 ML SYRINGE IV PUSH (07:17)
[2021-01-25] MEDS: SODIUM BICARBONATE 8.4% 50 MEQ/50 ML SYRINGE IV PUSH (07:17)
[2021-01-25] MEDS: SODIUM POLYSTYRENE SULFONONATE 15 GM/60 ML BTL PO (07:17)
[2021-01-25] MEDS: predniSONE 5 MG TABLET PO ×2 (09:03→16:51)
[2021-01-25] MEDS: amLODIPine BESYLATE 5 MG TABLET PO (09:03)
[2021-01-25 09:04] LABS: Glucose Point of Care 224 mg/dl (65-105)
[2021-01-25 09:04] LABS: Glucose Point of Care 144 mg/dl (65-105)
[2021-01-25] MEDS: guaiFENesin 12 HR 600 MG TABCR PO ×2 (09:04→20:24)
[2021-01-25] MEDS: GABAPENTIN 300 MG CAPSULE PO ×3 (09:04→16:51)
[2021-01-25] MEDS: ASPIRIN 81 MG ENTERIC TABLET PO (09:04)
[2021-01-25] MEDS: CHOLECALCIFEROL 400 UNITS TABLET (VIT D) PO (09:04)
[2021-01-25] MEDS: HYDROcodone/acetaminophen (*CRX) 10-325 MG TABLET 1 TAB PO (09:18)
[2021-01-25 10:17] LABS: Glucose Point of Care 133 mg/dl (65-105)
[2021-01-25 10:21] LABS: Albumin Level 4.3 g/dL (3.5-5.1); Anion Gap 19 mmol/L (8-16); Blood Urea Nitrogen 81 mg/dL (9-20); Calcium 9.1 mg/dL (8.4-10.2); Carbon Dioxide 23 mmol/L (22-30); Chloride 93 mmol/L (98-107); Estimated CRCL calculation 11 ml/min; Estimated Glomerular Filt Rate 9; Glucose 124 mg/dL (65-110); Phosphorus 11.6 mg/dL (2.5-4.5); Potassium 4.6 mmol/L (3.4-5.0); Sodium 135 mmol/L (137-145)
[2021-01-25 12:00] LABS: Glucose Point of Care 80 mg/dl (65-105)
--- NOTE | 2021-01-25 12:03 | PM.CNNEP ---
Assessment and Plan Assessment and plan (1) Acute kidney failure, unspecified: Code(s): N17.9 - Acute kidney failure, unspecified Status: Acute Assessment and Plan: Patient has acute kidney injury. Renal ultrasound is okay Most likely he is dehydrated. he is getting IV fluids now 125 an hour. He might need more, I am not sure. I will order another BMP for this afternoon and adjust fluids as needed. (2) CKD (chronic kidney disease): Qualifiers: Chronic kidney disease stage: stage 3 (moderate) Chronic kidney disease stage 3 subtype: stage 3b (GFR 30-44) Qualified Code(s): N18.32 - Chronic kidney disease, stage 3b Code(s): N18.9 - Chronic kidney disease, unspecified Status: Chronic Assessment and Plan: Patient has a baseline creatinine in the mid 2s. Most likely this is due to vascular disease, absence of 1 kidney, and probably recurrent acute kidney injury due to these dehydration episodes. (3) HTN (hypertension): Code(s): I10 - Essential (primary) hypertension Status: Chronic Assessment and Plan: Blood pressure is under good control now (4) COPD (chronic obstructive pulmonary disease): Code(s): J44.9 - Chronic obstructive pulmonary disease, unspecified Status: Chronic Assessment and Plan: he was encouraged to stop smoking. History of Present Illness Reason for Consult Consult date: 01/25/21 Chief Complaint Chief complaint: altered mental status History of Present Illness Narrative: Abran is a very pleasant 60-year-old gentleman who has multiple medical problems including chronic kidney disease with a baseline creatinine around 2.5-3, colorectal cancer status post colectomy in 2017. He has only 11cm of bowel left he says. He has liquid stools chronically. he also has coronary disease, hyperlipidemia, hypertension, peripheral arterial disease status post left [id number] amputation, current smoking, anemia, COPD, GI bleed, renal cancer. The patient came to the ER because of altered mental status. He was evaluated in the emergency room and was felt to have toxic encephalopathy from pain meds. They did also look into infectious etiologies. Originally he had coag-negative staph growing both blood cultures. He is to 2 yesterday to grow. He has repeat cultures pending. In the meantime he is on clindamycin. When he was 1st admitted his creatinine was at baseline at about 2.3. It brie to 2.6 2 days ago than 3.7 yesterday than 6.3 .and 6.6 today. his potassium was also high this morning and he was given some Kayexalate which brought the potassium down. The patient says that he has had high creatinine is in the past. Usually from high-output stool volume plus dehydration. He denies any bloody urine foamy urine kidney stones or bladder infection. He of course has only 1 kidney. The left kidney was removed because of the kidney cancer. He smokes cigarettes but he does not drink alcohol Review of Systems Constitutional: Constitutional: Reports no additional constitutional complaints Eyes: Eyes: Reports no additional eye complaints ENT: Reports system reviewed and no additional complaints, except as documented Cardiovascular: Cardiovascular: Reports no additional cardiovascular complaints Respiratory: Respiratory: Reports no additional respiratory complaints Gastrointestinal: Gastrointestinal: Reports no additional gastrointestinal complaints Genitourinary: Genitourinary: Reports no additional male genitourinary complaints Musculoskeletal: Musculoskeletal: Reports no additional musculoskeletal complaints Integumentary/Breasts: Skin/Breast: Reports system reviewed and no additional complaints, except as docu Neurologic: Reports system reviewed and no additional complaints, except as documented Psychiatric: Psychiatric: Reports no additional psychiatric complaints Endocrine: Endocrine: Repor
[2021-01-25 12:52] LABS: Creatine Kinase 97 U/L (55-170)
--- NOTE | 2021-01-25 13:29 | P.PNIM_ITS ---
Progress Note: A&P Assessment and Plan (1) Altered mental status: Qualifiers: Altered mental status type: delirium Qualified Code(s): R41.0 - Disorientation, unspecified Code(s): R41.82 - Altered mental status, unspecified Status: Acute Assessment and Plan: 01/22/21 12:43 altered mental status most likely due to toxic encephalopathy from pain medications. Metabolic encephalopathy due to infection less likely. However blood cultures are pending. The patient's UA does not seem consistent with UTI patient does not have white count or evidence of acute infection. Will hold the patient's [place] and benzodiazepines. The patient's blood pressures were uncontrolled with systolic blood pressures in the 160s in the ER. His 1st blood pressure arriving to the medical floor was elevated into the 180s but that was just after arrival the patient was restless. Will resume the patient's home antihypertensives and monitor blood pressure closely. Will add p.r.n. hydralazine for systolic blood pressures greater than 160. Patient has chronic kidney disease in his creatinine appears to be near baseline. He does have some mild hyperkalemia. Will place patient on heart healthy low-potassium diet. Will repeat BMP in a.m.. 01/25/21 13:29 01/21 today patient still remains somnolent not providing any ROS, he open his eyes and looks at you but does not say any thing. his CT of head and neck did not show any acute injury. most likely patient is encephalopathy 2/2 pain medication unlikel infectinous process, his O2 sats and Vitals are stable, will follow up blood and urine culture, will have PT/OT evaluate that patient. 01/22 Today patient little more awake states he wants to go home, denies any abdominal pain nausea, vomiting, fever or chills. however patient appears quite ill, Preliminary blood culture is growth Gram-positive cocci in clusters started the patient on vancomycin will follow on identification and sensitivity, urine was not sent for culture, we have resumed patient home pain medication, will have a PT OT evaluate the patient and further recommendation to follow. 01/23 patient with bacteremia with Gram-positive cocci and cluster will was started on vancomycin, patient remains clinically stable his white counts a normal he has no fever, he has no complaint abdominal pain nausea or vomiting fever or chills, we have ordered cardiac echo to further evaluate, will continue to monitor will follow-up on blood culture for identification and sensitivity. will have a PT OT evaluate the patient. 01/24 patient has had few vomiting patient is a poor historian KUB was done did not show any small-bowel obstruction or ileus, patient blood culture is growing coagulase-negative staphylococci MRSA patient had been treated with vancomycin however patient kidney function as worsening creatinine is rising, will start vancomycin start the patient clindamycin, cardiac echo did not show any vegetation, communicated with Dr. Driscoll recommended to repeat the blood cultures if negative may stop antibiotics. started the patient IV fluids to help kidney function will continue to monitor. 01/25 today patient seems to be more alert and talkative, he denies any abdominal pain nausea or vomiting, is continue to have stool in his colostomy bag, patient is creatinine has jumped from 3.7 to 6.3 renal ultrasound showed single kidney normal, discussed with nephrology suspect most likely secondary to dehydration recommended to continue IVF, as well as vancomycin patient was started which is now stopped and will monitor kidney function. patient has bacteremia with coagulase negative Staphylococcus MRSA discussed with Dr. driscoll on 01/01
[2021-01-25 17:04] LABS: Anion Gap 18 mmol/L (8-16); Blood Urea Nitrogen 79 mg/dL (9-20); Calcium 8.2 mg/dL (8.4-10.2); Carbon Dioxide 23 mmol/L (22-30); Chloride 91 mmol/L (98-107); Estimated CRCL calculation 11 ml/min; Estimated Glomerular Filt Rate 9; Glucose 104 mg/dL (65-110); Potassium 4.9 mmol/L (3.4-5.0); Sodium 132 mmol/L (137-145)
--- NOTE | 2021-01-25 18:58 | PC.NURSE ---
Patient has not voided all afternoon. Bladder scan reveals 50-150 cc urine in bladder. Patient denies feeling like he has to void and does not want to be straight cathed yet. Will continue to monitor.
--- NOTE | 2021-01-25 19:04 | PC.NURSE ---
Called Dr. Reynoso and notified him that patient had not urinated all day. Notified him of bladder scanner results. Orders received to increase IVF to 200 cc/hr x 2 liters and then decrease to 125 cc/hr after that. Dr. Reynoso states patient does not have to be straight cathed at this time. Continue to monitor.
[2021-01-25] MEDS: SERTRALINE HCL 50 MG TABLET 100 MG PO (20:24)
[2021-01-25] MEDS: DULoxetine HCL 30 MG CAPSULE.DR PO (20:24)
[2021-01-25] MEDS: ALPRAZolam (*CRX) 0.5 MG TABLET 1 MG PO (22:40)
[2021-01-25] MEDS: SODIUM CHLORIDE 0.9% IV 1,000 ML 200 ML IV CONT (23:41)
[2021-01-26] VITALS (9 sets, daily range): BP systolic 157–171; BP diastolic 70–75; PULSE 69–88; RESP 18; TEMP 36–36.7; O2SAT 94–98
[2021-01-26] MEDS: CLINDAMYCIN 600 MG/D5W 50 ML 600 MG/50 ML PIGGYBACK 100 MG IVPB ×3 (00:27→16:21)
[2021-01-26] MEDS: SODIUM CHLORIDE 0.9% IV 1,000 ML 125 ML IV CONT ×2 (05:04→06:22)
[2021-01-26] MEDS: CENTRAL LINE FLUSH 10 ML IV PUSH ×4 (05:42→20:44)
[2021-01-26 05:57] LABS: Hematocrit 28.5 % (42.0-52.0); Hemoglobin 9.5 g/dL (14.0-18.0); Mean Corpuscular HGB Conc 33.3 g/dl (32-36); Mean Corpuscular Hemoglobin 26.5 pg (26-34); Mean Corpuscular Volume 79.6 fl (80-100); Mean Platelet Volume 9.2 fl (7.4-10.4); Platelet Count Result 230 k/mm3 (150-375); Red Blood Count 3.58 M/mm3 (4.6-6.20); Red Cell Distribution Width 16.1 % (11.5-14.5); White Blood Count 8.6 K/mm3 (4.5-10.0)
[2021-01-26] MEDS: GABAPENTIN 300 MG CAPSULE PO ×3 (08:06→16:21)
[2021-01-26] MEDS: guaiFENesin 12 HR 600 MG TABCR PO ×2 (08:07→20:44)
[2021-01-26] MEDS: amLODIPine BESYLATE 5 MG TABLET PO (08:07)
[2021-01-26] MEDS: predniSONE 5 MG TABLET PO ×2 (08:07→16:21)
[2021-01-26] MEDS: ASPIRIN 81 MG ENTERIC TABLET PO (08:07)
[2021-01-26] MEDS: CHOLECALCIFEROL 400 UNITS TABLET (VIT D) PO (08:07)
[2021-01-26 08:14] LABS: Anion Gap 15 mmol/L (8-16); Blood Urea Nitrogen 80 mg/dL (9-20); Calcium 7.3 mg/dL (8.4-10.2); Carbon Dioxide 23 mmol/L (22-30); Chloride 96 mmol/L (98-107); Estimated CRCL calculation 13 ml/min; Estimated Glomerular Filt Rate 10; Glucose 117 mg/dL (65-110); Potassium 4.1 mmol/L (3.4-5.0); Sodium 134 mmol/L (137-145)
--- NOTE | 2021-01-26 14:05 | PM.PNNEP ---
Progress Note: A&P Assessment and Plan (1) Acute kidney failure, unspecified: Code(s): N17.9 - Acute kidney failure, unspecified Status: Acute Assessment and Plan: Patient has acute kidney injury. Renal ultrasound is okay check urine electrolytes. Most likely he is dehydrated. he is getting IV fluids now 125 an hour. Creatinine is slowly better. I think he needs more IV fluids. He mention to me that he wants to go home today. I think this is a really bad idea. His kidney functions no were near his baseline. If he gets dehydrated even more he will end up uremic and may need dialysis. He seems to think he can do all this at home. (2) CKD (chronic kidney disease): Qualifiers: Chronic kidney disease stage: stage 3 (moderate) Chronic kidney disease stage 3 subtype: stage 3b (GFR 30-44) Qualified Code(s): N18.32 - Chronic kidney disease, stage 3b Code(s): N18.9 - Chronic kidney disease, unspecified Status: Chronic Assessment and Plan: Patient has a baseline creatinine in the mid 2s. Most likely this is due to vascular disease, absence of 1 kidney, and probably recurrent acute kidney injury due to these dehydration episodes. (3) HTN (hypertension): Code(s): I10 - Essential (primary) hypertension Status: Chronic Assessment and Plan: Blood pressure is Doing pretty well. systolic is in the 150s. I do not want to over control this because of his acute kidney injury. (4) COPD (chronic obstructive pulmonary disease): Code(s): J44.9 - Chronic obstructive pulmonary disease, unspecified Status: Chronic Assessment and Plan: he was encouraged to stop smoking. Subjective Date/time seen: 01/26/21 14:05 Interval history: Patient is alert. He feels better. He is making more urine. He says he filled the urinal 6 times. And that each time he filled it it was at the 2nd line which is 400cc. He has no nausea or vomiting. He is eating well. Review of Systems Cardiovascular: Cardiovascular: Reports no additional cardiovascular complaints Respiratory: Respiratory: Reports no additional respiratory complaints Gastrointestinal: Gastrointestinal: Reports no additional gastrointestinal complaints Genitourinary: Genitourinary: Reports no additional male genitourinary complaints Exam Narrative: Exam Narrative: WDWN in NAD skin no rash head ncat lungs clear cor reg no rub abd BS+ nontender and soft Ostomy bag full of liquid ext no edema. Left above the knee amputation. Objective Data Vital Signs Vital Signs: Vital Signs - 24 hr 01/25/21 16:00 01/25/21 20:00 01/25/21 22:00 Temperature 36.4 C L Pulse Rate 85 76 80 Respiratory Rate 20 Blood Pressure 152/77 H Pulse Oximetry 98 01/26/21 00:00 01/26/21 04:00 01/26/21 06:00 Temperature 36.7 C Pulse Rate 79 78 73 Respiratory Rate 18 Blood Pressure 157/74 H Pulse Oximetry 97 01/26/21 08:32 01/26/21 12:00 Temperature Pulse Rate 88 75 Respiratory Rate Blood Pressure Pulse Oximetry Intake/Output Intake/Output: Intake & Output 01/23/21 01/24/21 01/25/21 01/26/21 23:59 23:59 23:59 23:59 Intake Total 1430 1790 4150 1990 Output Total 2850 1925 2950 800 Balance -1420 -135 1200 1190 Meds/Results Medications: Active Medications Generic Name Dose Route Start Last Admin Trade Name Freq PRN Reason Stop Dose Admin Hydrocodone Bitart/Acetaminophen 1 tab 01/21/21 20:16 01/25/21 09:18 Hydrocodone/Acetaminophen (*Crx) 10-325 Mg Tablet PO 1 tab Q6H PRN Administration Pain Alprazolam 1 mg 01/21/21 15:24 01/25/21 22:40 Alprazolam (*Crx) 0.5 Mg Tablet PO 1 mg TID PRN Administration Anxiety Amlodipine Besylate 5 mg 01/21/21 09:00 01/26/21 08:07 Amlodipine Besylate 5 Mg Tablet PO 5 mg DAILY CHANTELLE Administration Aspirin 81 mg 01/21/21 09:00 01/26/21 08
[2021-01-26] MEDS: SODIUM CHLORIDE 0.9% IV 1,000 ML 150 ML IV CONT ×2 (16:20→20:45)
[2021-01-26 16:55] LABS: Anion Gap 13 mmol/L (8-16); Blood Urea Nitrogen 69 mg/dL (9-20); Calcium 7.8 mg/dL (8.4-10.2); Carbon Dioxide 25 mmol/L (22-30); Chloride 96 mmol/L (98-107); Estimated CRCL calculation 14 ml/min; Estimated Glomerular Filt Rate 12; Glucose 132 mg/dL (65-110); Potassium 4.4 mmol/L (3.4-5.0); Sodium 134 mmol/L (137-145)
--- NOTE | 2021-01-26 17:03 | PM.IMPN ---
Progress Note: A&P Assessment and Plan (1) Altered mental status: Qualifiers: Altered mental status type: delirium Qualified Code(s): R41.0 - Disorientation, unspecified Code(s): R41.82 - Altered mental status, unspecified Status: Acute Assessment and Plan: 01/22/21 12:43 altered mental status most likely due to toxic encephalopathy from pain medications. Metabolic encephalopathy due to infection less likely. However blood cultures are pending. The patient's UA does not seem consistent with UTI patient does not have white count or evidence of acute infection. Will hold the patient's [place] and benzodiazepines. The patient's blood pressures were uncontrolled with systolic blood pressures in the 160s in the ER. His 1st blood pressure arriving to the medical floor was elevated into the 180s but that was just after arrival the patient was restless. Will resume the patient's home antihypertensives and monitor blood pressure closely. Will add p.r.n. hydralazine for systolic blood pressures greater than 160. Patient has chronic kidney disease in his creatinine appears to be near baseline. He does have some mild hyperkalemia. Will place patient on heart healthy low-potassium diet. Will repeat BMP in a.m.. 01/25/21 13:29 01/21 today patient still remains somnolent not providing any ROS, he open his eyes and looks at you but does not say any thing. his CT of head and neck did not show any acute injury. most likely patient is encephalopathy 2/2 pain medication unlikel infectinous process, his O2 sats and Vitals are stable, will follow up blood and urine culture, will have PT/OT evaluate that patient. 01/22 Today patient little more awake states he wants to go home, denies any abdominal pain nausea, vomiting, fever or chills. however patient appears quite ill, Preliminary blood culture is growth Gram-positive cocci in clusters started the patient on vancomycin will follow on identification and sensitivity, urine was not sent for culture, we have resumed patient home pain medication, will have a PT OT evaluate the patient and further recommendation to follow. 01/23 patient with bacteremia with Gram-positive cocci and cluster will was started on vancomycin, patient remains clinically stable his white counts a normal he has no fever, he has no complaint abdominal pain nausea or vomiting fever or chills, we have ordered cardiac echo to further evaluate, will continue to monitor will follow-up on blood culture for identification and sensitivity. will have a PT OT evaluate the patient. 01/24 patient has had few vomiting patient is a poor historian KUB was done did not show any small-bowel obstruction or ileus, patient blood culture is growing coagulase-negative staphylococci MRSA patient had been treated with vancomycin however patient kidney function as worsening creatinine is rising, will start vancomycin start the patient clindamycin, cardiac echo did not show any vegetation, communicated with Dr. Driscoll recommended to repeat the blood cultures if negative may stop antibiotics. started the patient IV fluids to help kidney function will continue to monitor. 01/25 today patient seems to be more alert and talkative, he denies any abdominal pain nausea or vomiting, is continue to have stool in his colostomy bag, patient is creatinine has jumped from 3.7 to 6.3 renal ultrasound showed single kidney normal, discussed with nephrology suspect most likely secondary to dehydration recommended to continue IVF, as well as vancomycin patient was started which is now stopped and will monitor kidney function. patient has bacteremia with coagulase negative Staphylococcus MRSA discussed with Dr. driscoll on 01/24 recommended to repeat the blood culture if it is negative may stop antibiotics, patient cardiac echo was normal did not show any vegetation, will have a PT OT reassess. 01/26 adamant about going home today more alert and oriented
[2021-01-26] MEDS: NICOTINE (*PBKC) 21 MG PATCH 1 PATCH TRANSDERM (18:13)
[2021-01-26] MEDS: SERTRALINE HCL 50 MG TABLET 100 MG PO (20:44)
[2021-01-26] MEDS: DULoxetine HCL 30 MG CAPSULE.DR PO (20:44)
[2021-01-26] MEDS: MELATONIN 3 MG TABLET PO (20:47)
[2021-01-27] VITALS: PULSE 77
[2021-01-27] MEDS: CLINDAMYCIN 600 MG/D5W 50 ML 600 MG/50 ML PIGGYBACK 100 MG IVPB ×2 (00:04→09:46)
[2021-01-27 04:00] VITALS: PULSE 74
[2021-01-27] MEDS: SODIUM CHLORIDE 0.9% IV 1,000 ML 150 ML IV CONT ×2 (04:20→12:00)
[2021-01-27] MEDS: ONDANSETRON INJ 4 MG/2 ML VIAL IV PUSH ×2 (04:34→10:23)
[2021-01-27 05:19] VITALS: BP 169/78; PULSE 73; RESP 18; TEMP 36; O2SAT 94
[2021-01-27] MEDS: CENTRAL LINE FLUSH 10 ML IV PUSH (05:30)
[2021-01-27 05:47] LABS: Hematocrit 30.1 % (42.0-52.0); Hemoglobin 10.1 g/dL (14.0-18.0); Mean Corpuscular HGB Conc 33.6 g/dl (32-36); Mean Corpuscular Hemoglobin 27.2 pg (26-34); Mean Corpuscular Volume 80.9 fl (80-100); Mean Platelet Volume 9.2 fl (7.4-10.4); Platelet Count Result 231 k/mm3 (150-375); Red Blood Count 3.72 M/mm3 (4.6-6.20); Red Cell Distribution Width 16.2 % (11.5-14.5); White Blood Count 11.9 K/mm3 (4.5-10.0)
[2021-01-27 06:00] LABS: Albumin Level 3.9 g/dL (3.5-5.1); Anion Gap 12 mmol/L (8-16); Blood Urea Nitrogen 56 mg/dL (9-20); Carbon Dioxide 22 mmol/L (22-30); Chloride 103 mmol/L (98-107); Estimated CRCL calculation 17 ml/min; Estimated Glomerular Filt Rate 15; Glucose 87 mg/dL (65-110); Phosphorus 6.2 mg/dL (2.5-4.5); Potassium 4.1 mmol/L (3.4-5.0); Sodium 137 mmol/L (137-145)
[2021-01-27 08:00] VITALS: PULSE 79
[2021-01-27] MEDS: amLODIPine BESYLATE 5 MG TABLET PO (09:47)
[2021-01-27] MEDS: ASPIRIN 81 MG ENTERIC TABLET PO (09:47)
[2021-01-27] MEDS: GABAPENTIN 300 MG CAPSULE PO (09:47)
[2021-01-27] MEDS: BENZONATATE 100 MG CAPSULE PO (09:47)
[2021-01-27] MEDS: CHOLECALCIFEROL 400 UNITS TABLET (VIT D) PO (09:47)
[2021-01-27] MEDS: predniSONE 5 MG TABLET PO (09:48)
[2021-01-27] MEDS: guaiFENesin 12 HR 600 MG TABCR PO (09:48)
--- NOTE | 2021-01-27 11:22 | PM.PNNEP ---
Progress Note: A&P Assessment and Plan (1) Acute kidney failure, unspecified: Code(s): N17.9 - Acute kidney failure, unspecified Status: Acute Assessment and Plan: Patient has acute kidney injury. Renal ultrasound is okay check urine electrolytes. Most likely he is dehydrated. he is getting IV fluids now 125 an hour. his creatinine is improved at 4.1. I would feel more comfortable if he would stay so that we can see how his creatinine does when he is not getting IV fluids. He says that he has IV fluid bags at home. He is going to get his blood drawn and sent it to [facility] and get their advice. (2) CKD (chronic kidney disease): Qualifiers: Chronic kidney disease stage: stage 3 (moderate) Chronic kidney disease stage 3 subtype: stage 3b (GFR 30-44) Qualified Code(s): N18.32 - Chronic kidney disease, stage 3b Code(s): N18.9 - Chronic kidney disease, unspecified Status: Chronic Assessment and Plan: Patient has a baseline creatinine in the mid 2s. Most likely this is due to vascular disease, absence of 1 kidney, and probably recurrent acute kidney injury due to these dehydration episodes. (3) HTN (hypertension): Code(s): I10 - Essential (primary) hypertension Status: Chronic Assessment and Plan: Blood pressure is back up. On amlodipine now. Consider increasing the dose to 10 as an outpatient if it stays high (4) COPD (chronic obstructive pulmonary disease): Code(s): J44.9 - Chronic obstructive pulmonary disease, unspecified Status: Chronic Assessment and Plan: he was encouraged to stop smoking. Subjective Date/time seen: 01/27/21 11:22 Interval history: Patient is alert. He feels better. he wants to go home. He is going to sign out AMA Exam Narrative: Exam Narrative: WDWN in NAD skin no rash head ncat lungs clear bilaterally cor reg no rub abd BS+ nontender and soft Ostomy bag full of liquid ext no edema. Left above the knee amputation. Objective Data Vital Signs Vital Signs: Vital Signs - 24 hr 01/26/21 12:00 01/26/21 14:00 01/26/21 16:00 Temperature 36.4 C Pulse Rate 75 72 69 Respiratory Rate 18 Blood Pressure 158/70 H Pulse Oximetry 94 01/26/21 20:00 01/26/21 20:40 01/27/21 00:00 Temperature 36.0 C L Pulse Rate 76 76 77 Respiratory Rate 18 18 Blood Pressure 171/75 H Pulse Oximetry 98 98 01/27/21 04:00 01/27/21 05:19 Temperature 36.0 C L Pulse Rate 74 73 Respiratory Rate 18 Blood Pressure 169/78 H Pulse Oximetry 94 Intake/Output Intake/Output: Intake & Output 01/24/21 01/25/21 01/26/21 01/27/21 23:59 23:59 23:59 23:59 Intake Total 1790 4150 5160 1220 Output Total 1925 2950 5350 400 Balance -135 1200 -190 820 Meds/Results Medications: Active Medications Generic Name Dose Route Start Last Admin Trade Name Freq PRN Reason Stop Dose Admin Hydrocodone Bitart/Acetaminophen 1 tab 01/21/21 20:16 01/25/21 09:18 Hydrocodone/Acetaminophen (*Crx) 10-325 Mg Tablet PO 1 tab Q6H PRN Administration Pain Alprazolam 1 mg 01/21/21 15:24 01/25/21 22:40 Alprazolam (*Crx) 0.5 Mg Tablet PO 1 mg TID PRN Administration Anxiety Amlodipine Besylate 5 mg 01/21/21 09:00 01/27/21 09:47 Amlodipine Besylate 5 Mg Tablet PO 5 mg DAILY CHANTELLE Administration Aspirin 81 mg 01/21/21 09:00 01/27/21 09:47 Aspirin 81 Mg Enteric Tablet PO 81 mg QAM CHANTELLE Administration Benzonatate 100 mg 01/24/21 15:52 01/27/21 09:47 Benzonatate 100 Mg Capsule PO 100 mg TID PRN Administration Cough Cyclobenzaprine HCl 10 mg 01/21/21 15:24 01/22/21 20:57 Cyclobenzaprine Hcl 10 Mg Tablet PO 10 mg HS PRN Administration muscle spasm Dextrose 12.5 gm 01/25/21 06:32 Dextrose 50% 25 Gm/50 Ml Syringe IV PUSH PRN PRN Hypoglycemia Protocol Duloxetine HCl 30 mg
[2021-01-27 12:00] VITALS: PULSE 69
--- NOTE | 2021-01-27 12:01 | PC.NURSE ---
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 pt also stated that he is going home today even if he has to go AMA. I contacted the hospitalist regarding pt's possible discharge; hospitalist will see pt this afternoon. pt's called to verify that pt is being discharged as he immediately called her to pick him up; I explained the aforementioned events and that we could call her when he is actually being discharged
--- NOTE | 2021-01-27 12:58 | PM.DS ---
DS: Admitting Diagnosis Admitting Diagnosis Altered mental status DS: Discharge Diagnosis Discharge Diagnosis (1) Altered mental status: Qualifiers: Altered mental status type: delirium Qualified Code(s): R41.0 - Disorientation, unspecified Code(s): R41.82 - Altered mental status, unspecified Status: Acute Assessment and Plan: (2) Chronic pain syndrome: Code(s): G89.4 - Chronic pain syndrome Status: Chronic (3) Uncontrolled hypertension: Code(s): I10 - Essential (primary) hypertension Status: Acute (4) CKD (chronic kidney disease): Qualifiers: Chronic kidney disease stage: stage 3 (moderate) Chronic kidney disease stage 3 subtype: stage 3b (GFR 30-44) Qualified Code(s): N18.32 - Chronic kidney disease, stage 3b Code(s): N18.9 - Chronic kidney disease, unspecified Status: Chronic DS: Summary Hospital Course Hospital Course: 60-year-old male with past medical history of colorectal cancer status post ileostomy, chronic kidney disease stage 3, hypertension and chronic pain syndrome who presented to the ER via EMS from home due to 3-4 days of altered mental status. The family sent him into the ER because they were concerned he may have A bacteremia as the patient has acted similarly when he had prior bacteremic events. He had also acted similarly when he had UTIs in the past. The patient has a PICC line in place that was recently exchanged presumably due to infection. The patient had reportedly have a a fall on gravel earlier in the day prior to admission but had denied hitting his head. He has CT performed in the ER which was negative for any acute intracranial process. his altered mental status likely due to toxic metabolic encephalopathy from underlying infection / pain medication. He was pancultured. His 2 x 2 blood culture came back positive for coagulase-negative Staphylococcus species. He was started on vancomycin. Repeat blood cultures will obtain which came back negative. His creatinine continued started to increase up to 6 on during the hospitalization for which he was started on IV fluid, nephrology was consulted. It was suggested that he likely had worsening creatinine due to dehydration and/ or vancomycin. His vancomycin was switched to clindamycin which was sensitive to the methicillin-resistant Staphylococcus species. His repeat blood cultures obtained subsequently upon consider consultation with Dr. heard with his infectious disease came back negative and suggested may stop antibiotics. He has plan to continue for 10 days course of antibiotic due to his CONS bacteremia. Is already finished 5 days course of effective antibiotic course while his hospital stay and will continue on 5 more days of antibiotics. echocardiogram was done which did not show any vegetation or any complications from his bacteremia and remains transient. And hands removal on replacement of his venous catheter was deferred. His renal function continue to improve with IV hydration. He has large ostomy output and reports he is on IV fluids and TPN at home per his primary care doctor. It was recommended that he stay in the hospital until his renal function completely recovers however he was admitted going home and to continue IV hydration at home. He suggested to monitor his output in his urine as well as his ostomy and calculate much fluids he need to get on a daily basis. He verbalizes understanding of the risks and plans of continued hydration and monitoring as an outpatient basis. Time Spent with Patient Time attestation: Total time spent providing and/or coordinating discharge services:50 minutes Exam Narrative: Exam Narrative: Patient is comfortable, NAD HEENT: eyes are clear and none icteric LUNGS:CTA no respiratory distress HEART: RR S1S2 ABD: BS+, Soft and nontender Lower extremities: no edema cyanosis or clubbing SKIN: nonjaundiced Neuro:
== END 2021-01-27 14:07 | disposition home health service (06) | DRG 92 ==
LOC: ANHED 01-21 04:04 → ANH2MED 01-21 04:22
PROVIDERS: Family Medicine; Internal Medicine Nephrology; Admitting Provider Internal Medicine; Emergency Provider Emergency Medicine; Visit Provider Internal Medicine
DX: G92 Toxic encephalopathy (principal); K91.2 Postsurgical malabsorption, not elsewhere classified; R78.81 Bacteremia; N17.9 Acute kidney failure, unspecified; Z89.612 Acquired absence of left leg above knee; T40.605A Adverse effect of unspecified narcotics, initial encounter; Y92.9 Unspecified place or not applicable; Z93.3 Colostomy status; I25.10 Atherosclerotic heart disease of native coronary artery without angina pectoris; J43.9 Emphysema, unspecified; G89.29 Other chronic pain; Z85.038 Personal history of other malignant neoplasm of large intestine; E78.5 Hyperlipidemia, unspecified; I73.9 Peripheral vascular disease, unspecified; G62.9 Polyneuropathy, unspecified; Z85.46 Personal history of malignant neoplasm of prostate; Z85.528 Personal history of other malignant neoplasm of kidney; M12.9 Arthropathy, unspecified; R56.9 Unspecified convulsions; Z90.5 Acquired absence of kidney; F17.210 Nicotine dependence, cigarettes, uncomplicated; I12.9 Hypertensive chronic kidney disease with stage 1 through stage 4 chronic kidney disease, or unspecified chronic kidney disease; G89.4 Chronic pain syndrome; Z91.81 History of falling; N18.32 Chronic kidney disease, stage 3b; E87.5 Hyperkalemia; B95.62 Methicillin resistant Staphylococcus aureus infection as the cause of diseases classified elsewhere; E86.0 Dehydration
CPT/HCPCS: 36415; 36600; 51701; 70450; 71045; 72125; 74018; 74176; 76775; 80048; 80053; 80069; 80307; 81001; 82550; 82805; 82948; 83605; 83735; 84484; 85025; 85027; 87040; 87077; 87186; 93005; 96360; 96374; 96375; 96376; 99285; A9270; C8929; G0378; J0610; J1815; J2405; J3370; J7030; J7512; Q9957

== ENCOUNTER 2021-05-20 18:09 | Emergency (ER) | payer OTHER, MEDICARE, SELFPAY ==
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
[2021-05-20 18:19] VITALS: BP 133/88; PULSE 84; RESP 16; TEMP 36.6; O2SAT 100
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
--- NOTE | 2021-05-20 20:46 | PC.NURSE ---
C-collar applied, Pt off floor to radiology.
[2021-05-20 21:09] VITALS: PULSE 80; RESP 18; TEMP 36.5; O2SAT 99
--- NOTE | 2021-05-20 21:09 | PC.NURSE ---
Called pharmacy requesting dilaudid pill.
[2021-05-20 21:17] VITALS: BP 176/95
--- NOTE | 2021-05-20 21:21 | PC.NURSE ---
Ilieostomy emptied for 350 cc
[2021-05-20] MEDS: HYDROmorphone HCL (*CRX) 0.5 MG TABLET PO (21:23)
[2021-05-20 22:05] LABS: Basophils Absolute Auto 0.1 K/mm3 (0.0-0.1); Basophils Percent Auto 0.9 % (0.2-1.2); Eosinophils Absolute Auto 0.7 K/mm3 (0-0.3); Eosinophils Percent Auto 9.1 % (0-4.4); Hemoglobin 10.4 g/dL (14.0-18.0); Immature Granulocyte Absolute 0.02 K/mm3 (0.00-0.031); Immature Granulocyte Percent A 0.3 % (0-0.5); Lymphocytes Absolute Auto 1.83 K/mm3 (0.9-3.2); Lymphocytes Percent Auto 23.1 % (18.3-44.2); Mean Corpuscular HGB Conc 32.5 g/dl (32-36); Mean Corpuscular Hemoglobin 26.3 pg (26-34); Mean Platelet Volume 8.9 fl (7.4-10.4); Monocytes Absolute Auto 0.5 K/mm3 (0.1-0.6); Monocytes Percent Auto 6.3 % (2.6-8.5); Neutrophils Absolute Auto 4.8 K/mm3 (1.3-6.7); Neutrophils Percent Auto 60.3 % (45.5-73.1); Platelet Count Result 252 k/mm3 (150-375); Red Blood Count 3.95 M/mm3 (4.6-6.20); Red Cell Distribution Width 16.1 % (11.5-14.5); White Blood Count 7.9 K/mm3 (4.5-10.0)
[2021-05-20 22:20] LABS: CRP 0.8 mg/dL (<1.0)
--- NOTE | 2021-05-20 22:21 | PC.NURSE ---
C-collar removed after speaking with Dr Reyna and reviewing scans.
--- NOTE | 2021-05-20 22:44 | PC.NURSE ---
Pt continues to have 9/10 pain. MD aware, verbal order for 5 of valium PO. Awaiting results of ESR prior to discharge.
[2021-05-20] MEDS: diazePAM (*CRX) 5 MG TABLET PO (22:46)
[2021-05-20 22:49] LABS: Erythrocyte Sedimentation Rate 73 mm/hr (0-20)
[2021-05-20 23:05] VITALS: BP 159/88; PULSE 74; RESP 18; TEMP 37; O2SAT 100
== END 2021-05-20 23:26 | disposition left against medical advice (07) ==
PROVIDERS: Emergency Provider Emergency Medicine
DX: S16.1XXA Strain of muscle, fascia and tendon at neck level, initial encounter (principal); Z89.512 Acquired absence of left leg below knee; Z79.82 Long term (current) use of aspirin; V43.52XA Car driver injured in collision with other type car in traffic accident, initial encounter; I12.9 Hypertensive chronic kidney disease with stage 1 through stage 4 chronic kidney disease, or unspecified chronic kidney disease; N18.9 Chronic kidney disease, unspecified; D64.9 Anemia, unspecified; I25.10 Atherosclerotic heart disease of native coronary artery without angina pectoris; J43.9 Emphysema, unspecified; E78.5 Hyperlipidemia, unspecified; I73.9 Peripheral vascular disease, unspecified; K90.89 Other intestinal malabsorption; G62.9 Polyneuropathy, unspecified; Z85.038 Personal history of other malignant neoplasm of large intestine; Z85.46 Personal history of malignant neoplasm of prostate; Z85.72 Personal history of non-Hodgkin lymphomas; Z86.718 Personal history of other venous thrombosis and embolism; Z85.528 Personal history of other malignant neoplasm of kidney; Z87.440 Personal history of urinary (tract) infections; Z87.01 Personal history of pneumonia (recurrent); Z98.42 Cataract extraction status, left eye; Z98.41 Cataract extraction status, right eye; Z90.5 Acquired absence of kidney; Z90.49 Acquired absence of other specified parts of digestive tract; Z93.2 Ileostomy status; F17.210 Nicotine dependence, cigarettes, uncomplicated; M47.812 Spondylosis without myelopathy or radiculopathy, cervical region; Z15.09 Genetic susceptibility to other malignant neoplasm
CPT/HCPCS: 36415; 72125; 85025; 85652; 86140; 99284; A9270; L0140

== ENCOUNTER 2021-05-21 16:35 | Emergency (ER) | payer MEDICARE, SELFPAY ==
--- NOTE | ~2021-05-21 | XR_ITS ---
EXAMINATION: XR chest 1V portable DATE: 05/21/2021 18:56 INDICATION: Assess central line placement. TECHNIQUE: frontal view of the chest was obtained. COMPARISON: Chest radiograph dated 01/21/2021 FINDINGS: Right internal jugular dual-lumen central venous catheter with distal tip at the caudal superior vena cava. Mild biapical pleural-parenchymal scarring. No new airspace opacities, pulmonary edema, pleura l effusion or pneumothorax. The cardiomediastinal silhouette is normal. Suture anchors at the cephala d aspect of the left and right glenoid suggesting prior labral repair is . IMPRESSION: 1. Right internal jugular central venous catheter tip at the caudal superior vena cava. 2. No acute cardiopulmonary disease. Reviewed, dictated and finalized at location A. OR SKIN BUFFER IMPRESSION: 1. Right internal jugular central venous catheter tip at the caudal superior ve na cava. 2. No acute cardiopulmonary disease.
[2021-05-21 17:04] VITALS: BP 123/75; PULSE 87; RESP 14; TEMP 36.2; O2SAT 98
[2021-05-21 17:15] VITALS: BP 119/81; PULSE 87; RESP 15; O2SAT 96
[2021-05-21 17:17] VITALS: BP 113/79; PULSE 91; O2SAT 96
[2021-05-21 17:32] VITALS: BP 136/82; PULSE 91; RESP 12; O2SAT 96
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
[2021-05-21 17:47] VITALS: BP 131/75; PULSE 88; RESP 17; O2SAT 93
[2021-05-21 19:22] LABS: Basophils Absolute Auto 0.1 K/mm3 (0.0-0.1); Basophils Percent Auto 1.1 % (0.2-1.2); Eosinophils Absolute Auto 0.8 K/mm3 (0-0.3); Eosinophils Percent Auto 10.6 % (0-4.4); Hematocrit 31.1 % (42.0-52.0); Hemoglobin 10.2 g/dL (14.0-18.0); Immature Granulocyte Absolute 0.02 K/mm3 (0.00-0.031); Immature Granulocyte Percent A 0.3 % (0-0.5); Lymphocytes Absolute Auto 2.17 K/mm3 (0.9-3.2); Lymphocytes Percent Auto 29.5 % (18.3-44.2); Mean Corpuscular HGB Conc 32.8 g/dl (32-36); Mean Corpuscular Hemoglobin 26.4 pg (26-34); Mean Corpuscular Volume 80.4 fl (80-100); Mean Platelet Volume 8.8 fl (7.4-10.4); Monocytes Absolute Auto 0.6 K/mm3 (0.1-0.6); Monocytes Percent Auto 8.3 % (2.6-8.5); Neutrophils Absolute Auto 3.7 K/mm3 (1.3-6.7); Neutrophils Percent Auto 50.2 % (45.5-73.1); Platelet Count Result 243 k/mm3 (150-375); Red Blood Count 3.87 M/mm3 (4.6-6.20); Red Cell Distribution Width 16.1 % (11.5-14.5); White Blood Count 7.4 K/mm3 (4.5-10.0)
[2021-05-21 19:34] LABS: EDCOVIDSCREEN Negative (Negative)
[2021-05-21 19:36] LABS: Alanine Aminotransferase 40 U/L (4-50); Albumin Level 3.9 g/dL (3.5-5.1); Alkaline Phosphatase 123 U/L (38-126); Anion Gap 7 mmol/L (8-16); Aspartate Amino Transferase 55 U/L (17-59); Bilirubin,Total 0.3 mg/dL (0.2-1.3); Blood Urea Nitrogen 53 mg/dL (9-20); CRP 0.7 mg/dL (<1.0); Calcium 8.8 mg/dL (8.4-10.2); Carbon Dioxide 30 mmol/L (22-30); Chloride 96 mmol/L (98-107); Estimated CRCL calculation 19 ml/min; Estimated Glomerular Filt Rate 17; Glucose 121 mg/dL (65-110); Potassium 4.2 mmol/L (3.4-5.0); Sodium 133 mmol/L (137-145)
[2021-05-21 19:57] LABS: Erythrocyte Sedimentation Rate 103 mm/hr (0-20)
[2021-05-22 00:21] VITALS: BP 127/76; PULSE 67; RESP 18; O2SAT 98
[2021-05-22 06:44] VITALS: BP 135/86; PULSE 69; RESP 20; O2SAT 98
--- NOTE | 2021-05-22 07:37 | PC.NURSE ---
This RN into pts room. Pt has vomited on floor and himself. This RN attempted to clean up pt but pt did not want to take off his blanket that he has on. Pt states that his will be coming in.
--- NOTE | 2021-05-22 07:43 | PC.NURSE ---
Whit from [facility] transfer center called wanting an updated set of vitals on pt. States she will call back when a room becomes available.
--- NOTE | 2021-05-22 09:49 | PC.NURSE ---
Pt Nazia called. Requested to be called if need anything. [phone]
[2021-05-22 09:56] VITALS: BP 156/76; PULSE 78; RESP 18; O2SAT 94
[2021-05-22 10:00] VITALS: BP 156/78; PULSE 78; RESP 18; O2SAT 100
[2021-05-22 13:00] VITALS: BP 142/87; PULSE 81; RESP 17; O2SAT 97
[2021-05-22 15:00] VITALS: BP 132/70; PULSE 80; RESP 18; O2SAT 100
--- NOTE | 2021-05-22 15:46 | PC.NURSE ---
Pt accepted had [facility] # [id number] phone number [phone]
== END 2021-05-22 16:26 | disposition short-term general hospital (02) ==
PROVIDERS: Emergency Provider Emergency Medicine
DX: M54.2 Cervicalgia (principal); C61 Malignant neoplasm of prostate; I12.9 Hypertensive chronic kidney disease with stage 1 through stage 4 chronic kidney disease, or unspecified chronic kidney disease; N18.9 Chronic kidney disease, unspecified; Z20.822 Contact with and (suspected) exposure to COVID-19; D64.9 Anemia, unspecified; I25.10 Atherosclerotic heart disease of native coronary artery without angina pectoris; J43.9 Emphysema, unspecified; E78.5 Hyperlipidemia, unspecified; I73.9 Peripheral vascular disease, unspecified; K90.89 Other intestinal malabsorption; G62.9 Polyneuropathy, unspecified; F17.210 Nicotine dependence, cigarettes, uncomplicated; Z85.038 Personal history of other malignant neoplasm of large intestine; Z85.72 Personal history of non-Hodgkin lymphomas; Z85.528 Personal history of other malignant neoplasm of kidney; Z86.718 Personal history of other venous thrombosis and embolism; Z87.440 Personal history of urinary (tract) infections; Z87.01 Personal history of pneumonia (recurrent); Z98.42 Cataract extraction status, left eye; Z98.41 Cataract extraction status, right eye; Z93.2 Ileostomy status; Z90.5 Acquired absence of kidney; Z90.49 Acquired absence of other specified parts of digestive tract; Z89.512 Acquired absence of left leg below knee; Z79.82 Long term (current) use of aspirin; Z15.09 Genetic susceptibility to other malignant neoplasm
CPT/HCPCS: 36415; 71045; 80053; 85025; 85652; 86140; 87040; 87426; 96365; 96367; 99285; C9803; J2543; J3370

== ENCOUNTER 2021-06-13 10:20 | Inpatient (IN) | payer MEDICARE, SELFPAY ==
[2021-06-13] VITALS (12 sets, daily range): BP systolic 105–138; BP diastolic 63–87; PULSE 83–104; RESP 15–18; TEMP 36.6–37.3; O2SAT 96–100
--- NOTE | ~2021-06-13 | US_ITS ---
EXAMINATION: US venous doppler LE EXAM DATE: 06/14/2021 10:18 INDICATION: elevated d dimer, hx DVT. Nondiagnostic perfusion scan. Cough. TECHNIQUE: Multiple grayscale, color flow and Doppler images of the lower extremity deep venous syste ms bilaterally were obtained and reviewed. Comparison is made to prior examination from 08/31/2020. FINDINGS: RIGHT SIDE Common femoral: -------- Normal. Profunda femoral: ------- Normal. Femoral: Normal. Popliteal: Normal. Posterior tibial: --------- Normal. Peroneal: Normal. Gastrocnemius: Not visualized. Soleus: Not visualized. Greater saphenous: ----- Normal. Lesser saphenous: ------ Not visualized. LEFT SIDE Common femoral: -------- Normal. Profunda femoral: ------- Normal. Femoral: Normal. Popliteal: Lower leg amputation. Greater saphenous: ----- Normal. IMPRESSION: 1. No evidence of lower extremity deep venous thrombosis bilaterally. Reviewed, dictated and finalized at location B. UELS TECHNOLOGY DEVELOPMENT MANAGER
--- NOTE | ~2021-06-13 | US_ITS ---
EXAMINATION: US renal BI DATE: 06/15/2021 10:30 INDICATION: Acute kidney injury. TECHNIQUE: Multiple ultrasound grayscale images of the kidneys were obtained. COMPARISON: CT abdomen and pelvis 06/13/2021 FINDINGS: The right kidney measures 12.7 x 5.7 x 6.1 cm. The left kidney is absent. The right kidney demonstrat es normal parenchymal echogenicity. There is no hydronephrosis. The bladder is normal. IMPRESSION: 1. Normal right kidney. No hydronephrosis. 2. Absent left kidney. Reviewed, dictated and finalized at location A. NING DIVISION SUPERINTENDENT
--- NOTE | ~2021-06-13 | CT_ITS ---
EXAMINATION: CT chest abdomen pelvis wo con EXAM DATE: 06/13/2021 13:55 INDICATION: Abdominal pain and cough. Nausea and vomiting. Prostate cancer. TECHNIQUE: Spiral CT of the chest, abdomen and pelvis was performed without contrast. Axial, hernandez l and sagittal images chest, abdomen and pelvis were reviewed. Coronal maximum intensity pixel image s of chest reviewed. The dose-length product (DLP) for this examination was 1043.54 mGy-cm. The exp osure was tailored according to patient size (auto mA exposure control), and iterative reconstruction (ASIR) was used as additional dose reduction technique. Compared to prior abdomen pelvis CT 01/26/20 21 FINDINGS: CHEST: Some scattered small peripheral regions of groundglass airspace disease, nonspecific pneumoni tis. Mild emphysema. There are no pleural or pericardial effusions. Tracheobronchial tree is paten t. There is no mediastinal, hilar or axillary lymphadenopathy. There is no pneumothorax. Heart normal in size. There is moderate coronary arterial calcification, arterial sclerosis. ABDOMEN PELVIS: The liver, spleen, adrenal glands and pancreas are unremarkable. There are cholecyst ectomy clips. There is a right-sided double-J ureteral stent in position. Left nephrectomy. There is mild right-sided hydronephrosis, and significantly distended bladder. Patient has likely had prosta tectomy. There is no retroperitoneal or pelvic lymphadenopathy. There is extensive scattered clarice rial sclerotic disease. Colectomy with left lower quadrant ostomy. The stomach and small bowel are unremarkable. No free intraperitoneal gas. Thoracic lumbar fusion hardware, chronic compression fractures of T10, T12, L1 and L2. Presacral fat stranding is unchanged. Pain pump. IMPRESSION: 1. Small amount of nonspecific pneumonitis. 2. Distended bladder, right ureteral stent in position. 3. Surgical changes. Reviewed, dictated and finalized at location A. P BLENDER
--- NOTE | ~2021-06-13 | NM_ITS ---
EXAMINATION: NM pulmonary perfusion EXAM DATE: 06/13/2021 14:46 INDICATION: dimer positive. TECHNIQUE: A perfusion lung scan was performed. The patient was injected with 5 mCi technetium 99m M AA and imaged. The Modified PIOPED 2 criteria used for interpretation of this perfusion only study, w ith 3 possible interpretations (PE present, PE absent, nondiagnostic) based on findings present, and correlated with a recent chest x-ray. More specifically, a high probability scan will be interpreted as pulmonary embolism present. A normal, or near normal, or low probability scan will be interpreted as pulmonary embolism absent. And finally an intermediate probability scan will be interpreted as non diagnostic. Correlation is made to chest x-ray same day. FINDINGS: Some mildly heterogeneous regions of perfusion demonstrated without segmental perfusion def ect or airspace disease identified on chest x-ray from today. Low probability pulmonary embolism (PE absent). IMPRESSION: PE absent. Reviewed, dictated and finalized at location A. LEGAL SPECIALIST IMPRESSION: PE absent.
--- NOTE | ~2021-06-13 | XR_ITS ---
EXAMINATION: XR chest PICC line INDICATION: Assess central line placement TECHNIQUE: Portable AP chest at 1100 hours COMPARISON: 05/21/2021 FINDINGS: A right internal jugular central venous catheter ends with its tip at the superior cavoatri al junction. The lungs are free of acute opacities. There is no pleural effusion or pneumothorax. The cardiomediastinal silhouette is normal. Suture anchors are noted in the glenoids. There are changes of interval spine surgery. IMPRESSION: 1. Right internal jugular central venous catheter ending with its tip at the superior cavoatrial junc tion. 2. No acute cardiopulmonary abnormality. Reviewed, dictated and finalized at location A. HALMIC TECH IMPRESSION: 1. Right internal jugular central venous catheter ending with its tip at the ji perior cavoatrial junction. 2. No acute cardiopulmonary abnormality.
--- NOTE | 2021-06-13 11:38 | ECG_ITS ---
Measurements Intervals [place] Rate: 96 P: 73 NE: 151 QRS: 86 QRSD: 100 T: 90 QT: 388 QTc: 492 Interpretive Statements SINUS RHYTHM INCOMPLETE RIGHT BUNDLE BRANCH BLOCK BORDERLINE ST ABNORMALITY- INF/LAT LEADS BORDERLINE ECG Electronically Signed On 06-13-2021 12:25:43 GRINDER LAP by Luis Enrique Madrigal D.O.
--- NOTE | 2021-06-13 11:39 | ED.GENADULT ---
HPI - General Adult General Chief complaint: Nausea/Vomiting/Diarrhea Stated complaint: N/V Time Seen by Provider: 06/13/21 11:06 Source: patient Mode of arrival: EMS Limitations: no limitations History of Present Illness HPI narrative: Patient presents for evaluation of nausea and vomiting. He states symptoms have been present for three days. Today he experienced fever which prompted him to call EMS who brought him here for further evaluation. He has a chronic productive cough of yellow sputum not worse as of late. No chest pain, SOB, abdominal pain. He has a history of colon cancer and had a partial colectomy several decades ago. 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 Last chemo treatment was three weeks ago. He states he lives with his and she has not been ill. He has never had COVID and states he has received both doses of his COVID vaccination. He has a hx of DVT and was previously anticoagulated with coumadin. He is no longer on coumadin. He states he has a history of left AKA. He does smoke 1 ppd. He has chronic back pain for which he takes norco. Related Data Home Medications Medication Instructions Recorded Confirmed gabapentin 300 mg PO TID 07/30/19 01/21/21 hydrocodone-acetaminophen 325 tablet PO Q6H PRN 07/30/19 01/21/21 prednisone 5 mg PO BID 07/30/19 01/21/21 duloxetine 30 mg PO HS 08/31/20 01/21/21 aspirin 81 mg PO DAILY 09/01/20 01/21/21 cholecalciferol (vitamin D3) 400 mg PO DAILY 09/01/20 01/21/21 sertraline 100 mg PO HS 09/01/20 01/21/21 amlodipine 5 mg PO DAILY 01/21/21 01/21/21 cyclobenzaprine 10 mg PO HS PRN 01/21/21 01/21/21 ondansetron 4 mg PO Q8H PRN 01/21/21 01/21/21 alprazolam 05/21/21 amlodipine 05/21/21 cyclobenzaprine mg 05/21/21 gabapentin 05/21/21 hydrocodone-acetaminophen tablet 05/21/21 05/21/21 mirabegron [Myrbetriq] mg PO 05/21/21 sertraline mg 05/21/21 sodium chloride 0.9 % ea 05/21/21 Allergies Allergy/AdvReac Type Severity Reaction Status Date / Time oxycodone AdvReac Agitated Verified 06/13/21 11:23 Review of Systems Review of Systems: CONSTITUTIONAL: Reports fever. Denies chills EYES: Denies visual changes, redness, or discharge. ENT: Denies rhinorrhea, congestion, sore throat, or otalgia. CARDIOVASCULAR: Denies chest pain, palpitations, or edema. RESPIRATORY: Reports productive cough of yellow sputum. Denies SOB GASTROINTESTINAL:Reports nausea and vomiting. Denies abdominal pain. GENITOURINARY: Denies dysuria or hematuria. SKIN: Denies rash or itching. MUSCULOSKELETAL: Reports back pain. Denies joint pain, or myalgia. NEUROLOGIC:Reports weakness. Denies headache, numbness, dizziness PSYCHIATRIC: Denies anxiety or depression. [facility] Past Medical History Medical History Acute kidney failure, unspecified Anemia Bowel obstruction CAD (coronary artery disease) Chronic pain CKD (chronic kidney disease) Colorectal cancer COPD (chronic obstructive pulmonary disease) DVT (deep venous thrombosis) Emphysema of lung Gangrene status post left oxjls-cqh-akij amputation GI bleed History of left above knee amputation HLD (hyperlipidemia) HTN (hypertension) Lymphoma Yao syndrome PAD (peripheral artery disease) Peripheral neuropathy Pneumonia Prostate cancer PVD (peripheral vascular disease) Renal cancer Right wrist fracture Rotator cuff arthropathy of both shoulders Seizure Short gut syndrome UTI (urinary tract infection) Surgical History Surgical History H/O bilateral cataract extraction H/O ileostomy H/O left nephrectomy H/O right wrist surgery H/O rotator cuff surgery History of back surgery History of cardiac catheterization History of cataract surgery History of colon resection History of left above knee amputation History of urethral stent Hx of appendectomy Hx of cholecystectomy S
--- NOTE | 2021-06-13 12:18 | PC.NURSE ---
Pt states he is unable to give urine sample at this time.
[2021-06-13 12:21] LABS: Basophils Percent Auto 0.3 % (0.2-1.2); Hematocrit 27.4 % (42.0-52.0); Hemoglobin 8.8 g/dL (14.0-18.0); Immature Granulocyte Absolute 0.05 K/mm3 (0.00-0.031); Immature Granulocyte Percent A 0.7 % (0-0.5); Lymphocytes Absolute Auto 0.46 K/mm3 (0.9-3.2); Lymphocytes Percent Auto 6.4 % (18.3-44.2); Mean Corpuscular HGB Conc 32.1 g/dl (32-36); Mean Corpuscular Hemoglobin 25.4 pg (26-34); Mean Platelet Volume 9.5 fl (7.4-10.4); Monocytes Absolute Auto 0.3 K/mm3 (0.1-0.6); Monocytes Percent Auto 4.1 % (2.6-8.5); Neutrophils Absolute Auto 6.3 K/mm3 (1.3-6.7); Neutrophils Percent Auto 88.5 % (45.5-73.1); Platelet Count Result 169 k/mm3 (150-375); Red Blood Count 3.47 M/mm3 (4.6-6.20); White Blood Count 7.1 K/mm3 (4.5-10.0)
[2021-06-13 12:29] LABS: Lactic Acid Reflex 0.9 mmol/L (0.7-2.1)
[2021-06-13 12:30] LABS: Alanine Aminotransferase 52 U/L (4-50); Albumin Level 3.7 g/dL (3.5-5.1); Alkaline Phosphatase 163 U/L (38-126); Anion Gap 11 mmol/L (8-16); Aspartate Amino Transferase 69 U/L (17-59); Bilirubin,Total 0.7 mg/dL (0.2-1.3); Blood Urea Nitrogen 60 mg/dL (9-20); Calcium 9.6 mg/dL (8.4-10.2); Carbon Dioxide 26 mmol/L (22-30); Chloride 104 mmol/L (98-107); Estimated CRCL calculation 19 ml/min; Estimated Glomerular Filt Rate 18; Glucose 171 mg/dL (65-110); Lipase 184 U/L (23-300); Potassium 3.7 mmol/L (3.4-5.0); Sodium 141 mmol/L (137-145)
[2021-06-13 12:32] LABS: INR 1.1; Prothrombin Time 14.2 Seconds (11.1-14.7)
[2021-06-13 12:33] LABS: Partial Thromboplastin Time 35.9 SECONDS (22.3-36.8)
[2021-06-13 12:49] LABS: D Dimer 17.24 ug/mL (<0.48)
[2021-06-13] MEDS: HYDROcodone/acetaminophen (*CRX) 5-325 MG TABLET 2 TAB PO (12:51)
[2021-06-13 14:02] LABS: Troponin I 0.045 ng/mL (0.000-0.034)
[2021-06-13 15:53] LABS: CRP > 9.0 mg/dL (<1.0); Creatine Kinase 211 U/L (55-170); Lactate Dehydrogenase 546 U/L (313-618)
[2021-06-13 16:09] LABS: Add Urine Microscopic? YES; Appearance Urine Clear (Clear); Bilirubin Urine Negative (Negative); Blood Urine Negative (Negative); Color Urine Yellow (Yellow); Glucose Urine UA 2+ mg/dL (Negative); Ketones Urine Negative (Negative); Leukocyte Esterase Ur Negative LEU/UL (Negative); Nitrate Urine Negative (Negative); Protein Urine 3+ mg/dL (Negative); RBC Urine 0-2 /hpf (0-2); Specific Grav Ur 1.016 (1.001-1.035); Urobilinogen Urine Negative mg/dL (<2.0); WBC Urine 0-3 /hpf
[2021-06-13] MEDS: ONDANSETRON INJ 4 MG/2 ML VIAL IV PUSH ×2 (16:42→20:05)
--- NOTE | 2021-06-13 18:15 | PM.IMHP ---
H&P: HPI History of Present Illness Date/Time: 06/13/21 18:15 Chief Complaint: Nausea, vomiting, weakness. Narrative: This is an unfortunate 60-year-old male with history multiple malignancies including colorectal cancer status post ileostomy, kidney cancer, lymphoma, and prostate cancer currently going under chemotherapy;chronic kidney disease, hypertension, COPD, peripheral arterial disease, and other comorbidities who presented to the emergency department earlier today from home for evaluation of nausea, vomiting, and weakness. He last had chemotherapy approximately 3 weeks ago and seemed to be doing okay however over the past 3 days he has developed pretty significant nausea with vomiting. Additionally he reports a cough productive of yellow sputum though he goes on to say that that is not necessarily unusual for him. At the time my evaluation he feels a bit better with IV fluids however is still very nauseated and is having dry heaves. On hands exam his bladder feels a bit distended and it is noted that he had to be catheterized in the ER as he could not produce urine. Bladder was also markedly distended on CT though at this time the patient is refusing Tijerina catheter. BUN and creatinine today are 60 and 3.40 respectively and patient reports that that is about normal for him. He denies sick contacts and exposure to those positive for COVID 19. He also denies dysuria, urgency, and incontinence. No hematemesis. He has not had sinus congestion, rhinorrhea, otalgia, or odynophagia. He has noticed somewhat of an increase in output from his ileostomy but nothing significant. Review of Systems Review of Systems: Twelve systems were reviewed. No syncope or near syncope. No headache or neck ache. He has not had chest pain, pleuritic pain, palpitations, orthopnea, PND, or lower extremity edema. No shortness of breath. Except as documented, all other systems were reviewed and are negative. [facility] Past Medical History Medical History Chronic anemia Chronic kidney disease Chronic obstructive pulmonary disease Chronic pain syndrome Colorectal cancer Status post colon resection and ileostomy. Coronary artery disease Deep venous thrombosis Gangrene Status post left yxklo-odt-bubr amputation. GI bleed History of small bowel obstruction Hyperlipidemia Hypertension Lymphoma Treated with Keytruda. Yao syndrome Peripheral arterial disease Peripheral neuropathy Pneumonia Prostate cancer Status post radiation. Renal cancer Status post partial left nephrectomy. Seizure Short gut syndrome Surgical History Surgical History (Updated 06/13/21 @ 17:52 by Barby Craig PA-C) History of appendectomy History of back surgery History of bilateral cataract extraction History of cardiac catheterization History of cholecystectomy History of colon resection History of ileostomy History of left above knee amputation History of left nephrectomy (2014) History of open reduction and internal fixation (ORIF) procedure Repair of right wrist fracture. History of repair of rotator cuff Bilateral. History of urethral stent Family History Family History (Updated 06/13/21 @ 17:52 by Barby Craig PA-C) Other Colon cancer Diabetes mellitus Malignant neoplasm of prostate Social History Social History (Updated 06/13/21 @ 17:53 by Barby Craig PA-C) Social History: Surrogate decision maker: Nazia Russell, . Code status: Full code. Smoking packs per day: 1.5 Smoking cigarettes per day: 30.0 Years smoked: 50 Smoking pack-years: 75.00 Smoking status: Current every day smoker Alcohol intake: former Substance use: never Additional living arrangements comments: The patient lives in [place] with his . Meds Home Medications and Allergies Home Medications Medication Instructions Recorded Confirmed Type gabapentin 300 mg PO TID 07/30/19 01/21/21
--- NOTE | 2021-06-13 19:17 | PC.NURSE ---
Report received from CARMEN Taylor. Assumed care of patient at this time.
--- NOTE | 2021-06-13 19:54 | PC.NURSE ---
Patient states he does have a morphine pump on and is unsure of the dose or rate. Patient is aware of his bladder distention and offered a urinal but is unable to empty it. Patient was offered a catheter to relieve his distention, patient declined. Hospitalist informed.
--- NOTE | 2021-06-13 19:56 | PC.NURSE ---
Hospitalist in room speaking with patient.
[2021-06-13] MEDS: SODIUM CHLORIDE 0.9% IV 1,000 ML 75 ML IV CONT (20:05)
[2021-06-13] MEDS: HYDROmorphone HCL INJ (*CRX) 1 MG/ML SYR 0.5 MG IV PUSH (20:05)
[2021-06-13 21:56] LABS: EDCOVIDSCREEN Negative (Negative)
--- NOTE | 2021-06-13 23:40 | PC.NURSE ---
Contacted patients to update on patients room number.
[2021-06-14] VITALS (12 sets, daily range): BP systolic 102–144; BP diastolic 54–77; PULSE 63–101; RESP 16–20; TEMP 36.6–38.1; O2SAT 94–99; BMI 19.2
--- NOTE | 2021-06-14 00:52 | ADMGEN ---
This patient, Fernandez Russell, was admitted to IMU Room 202-01 on 06/14/21 at 0025. Patient/family oriented to hospital policies and general routines including ID bracelet, bed and alarms, visiting hours, pain management, procedures, bathroom and other care routines, personal items, smoking policy, room service/diet, and visiting hours. Information on how to activate the Rapid Response Team has been discussed. Patient/Family are encouraged to report perceived risks to care and to ask questions if they do not understand what they are told or what they should do.
[2021-06-14] MEDS: ONDANSETRON INJ 4 MG/2 ML VIAL IV PUSH (01:53)
[2021-06-14] MEDS: NICOTINE (*PBKC) 21 MG PATCH 1 PATCH TRANSDERM (01:54)
[2021-06-14] MEDS: CENTRAL LINE FLUSH 10 ML IV PUSH ×4 (05:10→20:34)
[2021-06-14] MEDS: CENTRAL LINE FLUSH 20 ML IV PUSH (05:10)
[2021-06-14 05:44] LABS: Basophils Percent Auto 0.1 % (0.2-1.2); Hematocrit 26.6 % (42.0-52.0); Hemoglobin 8.6 g/dL (14.0-18.0); Immature Granulocyte Absolute 0.03 K/mm3 (0.00-0.031); Immature Granulocyte Percent A 0.4 % (0-0.5); Lymphocytes Absolute Auto 0.47 K/mm3 (0.9-3.2); Lymphocytes Percent Auto 6.2 % (18.3-44.2); Mean Corpuscular HGB Conc 32.3 g/dl (32-36); Mean Corpuscular Hemoglobin 25.8 pg (26-34); Mean Corpuscular Volume 79.9 fl (80-100); Mean Platelet Volume 10.8 fl (7.4-10.4); Monocytes Absolute Auto 0.4 K/mm3 (0.1-0.6); Monocytes Percent Auto 4.9 % (2.6-8.5); Neutrophils Absolute Auto 6.7 K/mm3 (1.3-6.7); Neutrophils Percent Auto 88.4 % (45.5-73.1); Platelet Count Result 158 k/mm3 (150-375); Red Blood Count 3.33 M/mm3 (4.6-6.20); Red Cell Distribution Width 18.2 % (11.5-14.5); White Blood Count 7.5 K/mm3 (4.5-10.0)
[2021-06-14 05:56] LABS: Alanine Aminotransferase 66 U/L (4-50); Albumin Level 3.7 g/dL (3.5-5.1); Alkaline Phosphatase 172 U/L (38-126); Anion Gap 13 mmol/L (8-16); Aspartate Amino Transferase 78 U/L (17-59); Bilirubin,Total 0.7 mg/dL (0.2-1.3); Blood Urea Nitrogen 68 mg/dL (9-20); Calcium 8.9 mg/dL (8.4-10.2); Carbon Dioxide 25 mmol/L (22-30); Chloride 99 mmol/L (98-107); Estimated CRCL calculation 15 ml/min; Estimated Glomerular Filt Rate 14; Glucose 116 mg/dL (65-110); Potassium 3.6 mmol/L (3.4-5.0); Sodium 137 mmol/L (137-145)
--- NOTE | 2021-06-14 08:26 | PM.IMPN ---
Progress Note: A&P Assessment and Plan (1) Intractable vomiting with nausea: Code(s): R11.2 - Nausea with vomiting, unspecified Status: Acute Assessment and Plan: Etiology not entirely clear. His last chemotherapy was [address] of the abdomen and pelvis did not show any significant findings however his bladder was quite distended thus that may be causing some of his issue. Patient present with elevated BUN and creatinine at 68 and 4.4. He does carry a diagnosis of CKD baseline creatinine is unknown. His creatinine has been fluctuating over the past few weeks. He was in the 2s up to last December. He has been trending up. Consult nephrology. Continue supportive care including cautious IV fluid rehydration and antiemetics as needed. (2) Elevated troponin: Code(s): R77.8 - Other specified abnormalities of plasma proteins Status: Acute Assessment and Plan: Patient has not had chest pain and did not ever complain of chest pain the ER. Troponins have been flat and are likely elevated in the setting of renal failure not indicative of acute coronary syndrome. (3) Dehydration: Code(s): E86.0 - Dehydration Status: Acute Assessment and Plan: Secondary to vomiting. Continue judicious IV fluid rehydration. (4) Elevated d-dimer: Code(s): R79.89 - Other specified abnormal findings of blood chemistry Status: Acute Assessment and Plan: D-dimer was markedly elevated. V/Q scan was nondiagnostic and he cannot have a CTA given his renal function. His history is not suspicious for pulmonary embolism. Right lower extremity Doppler without evidence of lower extremity DVT bilaterally. (5) Fever: Code(s): R50.9 - Fever, unspecified Status: Acute Assessment and Plan: Patient reports having a fever. Urinalysis and chest x-ray were unremarkable. He was swabbed for COVID in the emergency department and he will remain in isolation pending SARS-CoV-2 by PCR. (6) Chronic kidney disease: Code(s): N18.9 - Chronic kidney disease, unspecified Status: Acute Assessment and Plan: Creatinine has been increasing over the last year. Bladder today was markedly distended on imaging and I assume at least in some part this may be due to obstruction. At this time he is not allowing me to place a Tijerina catheter. Modest output of 400 cc overnight. Consult Nephrology. Limb alert. Preserve non dominant of for possible future access. Avoid IV line, PICC line in upper extremities in order to preserve vasculature. Consider vein mapping as an outpatient. (7) Chronic obstructive pulmonary disease: Code(s): J44.9 - Chronic obstructive pulmonary disease, unspecified Status: Acute Assessment and Plan: No acute issues. (8) Tobacco dependence: Code(s): F17.200 - Nicotine dependence, unspecified, uncomplicated Status: Chronic Assessment and Plan: Nicotine patch will be made available for the patient per his request. (9) Hypertension: Code(s): I10 - Essential (primary) hypertension Status: Acute Assessment and Plan: Blood pressure is stable on review of previous labs. Current blood pressure 102/55. Avoid over zealous correction of blood pressure in this patient with CKD likely lacking autoregulation. Subjective Date/time seen: 06/14/21 08:14 S: This is an unfortunate 60-year-old male with history multiple malignancies including colorectal cancer status post ileostomy, kidney cancer, lymphoma, and prostate cancer currently going under chemotherapy;chronic kidney disease, hypertension, COPD, peripheral arterial disease, a admitted for nausea, vomiting, and weakness. He last had chemotherapy approximately 3 weeks ago. Patient was appropriately started on IV fluid rehydration and antiemetics as needed. S: Patient examined at the bedside. He reports significant generalized weakness and ba
[2021-06-14] MEDS: ASPIRIN 81 MG CHEWABLE TABLET PO (09:21)
[2021-06-14] MEDS: MIRABEGRON 25 MG ER TABLET PO (09:21)
[2021-06-14] MEDS: GABAPENTIN 300 MG CAPSULE PO ×3 (09:21→17:06)
[2021-06-14] MEDS: FAMOTIDINE 20 MG/2 ML VIAL IV PUSH (09:21)
[2021-06-14] MEDS: carvediloL 12.5 MG TABLET PO ×2 (09:21→17:06)
[2021-06-14] MEDS: DULoxetine HCL 30 MG CAPSULE.DR PO (09:21)
[2021-06-14] MEDS: predniSONE 5 MG TABLET PO ×2 (09:21→17:06)
[2021-06-14] MEDS: SODIUM CHLORIDE 0.9% IV 1,000 ML 75 ML IV CONT ×2 (09:24→22:26)
[2021-06-14] MEDS: SCOPOLAMINE 1.5 MG PATCH 1 MG TRANSDERM (12:02)
--- NOTE | 2021-06-14 13:54 | PCNSR ---
On 06/14/21, the student,Vera [place], provided care and completed [facility] documentation on this patient. I have reviewed the student's documentation and agree with the findings.
[2021-06-14 14:20] LABS: SARS-CoV-2 RNA PCR Negative
[2021-06-14] MEDS: SERTRALINE HCL 50 MG TABLET 100 MG PO (20:33)
[2021-06-15] MEDS: ONDANSETRON INJ 4 MG/2 ML VIAL IV PUSH (00:11)
[2021-06-15] MEDS: HYDROcodone/acetaminophen (*CRX) 10-325 MG TABLET PO ×2 (00:12→18:51)
[2021-06-15 03:15] VITALS: BP 116/63; PULSE 70; RESP 16; TEMP 35.8; O2SAT 95
[2021-06-15] MEDS: CENTRAL LINE FLUSH 10 ML IV PUSH ×4 (05:16→20:40)
[2021-06-15] MEDS: MICAFUNGIN SODIUM 100 MG in SODIUM CHLORIDE 0.9% IV 100 ML IVPB (06:01)
[2021-06-15] MEDS: GABAPENTIN 300 MG CAPSULE PO ×3 (09:04→18:18)
[2021-06-15] MEDS: MIRABEGRON 25 MG ER TABLET PO (09:05)
[2021-06-15] MEDS: ASPIRIN 81 MG CHEWABLE TABLET PO (09:05)
[2021-06-15 09:06] VITALS: PULSE 76
[2021-06-15] MEDS: carvediloL 12.5 MG TABLET PO ×2 (09:06→18:18)
[2021-06-15] MEDS: FAMOTIDINE 20 MG/2 ML VIAL IV PUSH (09:06)
[2021-06-15] MEDS: NICOTINE (*PBKC) 21 MG PATCH 1 PATCH TRANSDERM (09:06)
[2021-06-15] MEDS: DULoxetine HCL 30 MG CAPSULE.DR PO (09:06)
[2021-06-15] MEDS: predniSONE 5 MG TABLET PO ×2 (09:06→18:18)
--- NOTE | 2021-06-15 11:00 | P.CONNP_ITS ---
Assessment and Plan Assessment and plan (1) DEVYN (acute kidney injury): Code(s): N17.9 - Acute kidney failure, unspecified Status: Acute Assessment and Plan: * presumably due to volume depletion/dehydration and possibly urinary retention/obstruction (distended bladder on imaging) * evaluation to date * CT scan with distended bladder, with right ureteral stent in position * renal ultrasound with absent left kidney and no hydronephrosis in right kidney * urine electrolytes appear prerenal * gentle IVF hydration as tolerated * follow trend of repeat labs and UOP * given his recurrent DEVYN over multiple hospitalizations, he may just have a new baseline creatinine (2) Chronic kidney disease, stage IV (severe): Code(s): N18.4 - Chronic kidney disease, stage 4 (severe) Status: Chronic Assessment and Plan: * baseline creatinine had been running around 2.3 - 2.9mg/dl * presumably due to HTN, recurrent DEVYN, and decreased nephron mass (solitary kidney) (3) Intractable vomiting with nausea: Code(s): R11.2 - Nausea with vomiting, unspecified Status: Acute Assessment and Plan: * unclear etiology * possibly secondary to #4 (?) * continue supportive therapy (4) Fungus infection in blood: Code(s): B49 - Unspecified mycosis Status: Acute Assessment and Plan: * felt to be secondary to CVC * on antifungal therapy * Infectious Disease consultation (5) Hypertension: Code(s): I10 - Essential (primary) hypertension Status: Chronic Assessment and Plan: * reasonable control at this time * follow trend of hemodynamics (6) Anemia: Code(s): D64.9 - Anemia, unspecified Status: Chronic Assessment and Plan: * probably due to DEVYN, underlying CKD, and associated malignancy * follow trend of H/H * PRBC transfusion per protocol * consider Epogen during hospital stay (7) Generalized weakness: Code(s): R53.1 - Weakness Status: Acute Assessment and Plan: * multifactorial: * fungemia * nausea and vomiting and associated volume depletion * DEVYN versus CKD * anemia * underlying malignancy * chemotherapy * PT/OT as tolerated Will continue to follow. History of Present Illness Reason for Consult Consult date: 06/15/21 Reason for consult: chronic renal failure Chief Complaint Chief complaint: Troponin Elevation, Intractable Nausea & Vomiting History of Present Illness Narrative: The patient is a 60-year-old male with multiple medical problems who presented to [facility] Emergency room with complaints of nausea, vomiting, and generalized weakness. He states that over the past 3-4 days he has developed significant nausea with associated vomiting. he reports that he had recent chemotherapy approximately 3 weeks ago and had been doing fairly well up until the last 3 4 days when the aforementioned symptoms started. As the symptoms seem to be progressively getting worse, he presented to the ER for further evaluation Workup and evaluation emergency room demonstrated an elevated BUN and creatinine (60 and 3.4 respectively). From review of his records, when he was last hospitalized here, he was discharged with a creatinine of 4.0 mg/dL on the assumption that it would continue to improve with ongoing hydration and increased oral intake. However, the patient reported that these laboratory abnormalities were about his baseline. On exam his bladder felt a bit distended and was n
--- NOTE | 2021-06-15 11:00 | PM.CNNEP ---
Assessment and Plan Assessment and plan (1) DEVYN (acute kidney injury): Code(s): N17.9 - Acute kidney failure, unspecified Status: Acute Assessment and Plan: presumably due to volume depletion/dehydration and possibly urinary retention/obstruction (distended bladder on imaging) evaluation to date CT scan with distended bladder, with right ureteral stent in position renal ultrasound with absent left kidney and no hydronephrosis in right kidney urine electrolytes appear prerenal gentle IVF hydration as tolerated follow trend of repeat labs and UOP given his recurrent DEVYN over multiple hospitalizations, he may just have a new baseline creatinine (2) Chronic kidney disease, stage IV (severe): Code(s): N18.4 - Chronic kidney disease, stage 4 (severe) Status: Chronic Assessment and Plan: baseline creatinine had been running around 2.3 - 2.9mg/dl presumably due to HTN, recurrent DEVYN, and decreased nephron mass (solitary kidney) (3) Intractable vomiting with nausea: Code(s): R11.2 - Nausea with vomiting, unspecified Status: Acute Assessment and Plan: unclear etiology possibly secondary to #4 (?) continue supportive therapy (4) Fungus infection in blood: Code(s): B49 - Unspecified mycosis Status: Acute Assessment and Plan: 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 Infectious Disease consultation (5) Hypertension: Code(s): I10 - Essential (primary) hypertension Status: Chronic Assessment and Plan: reasonable control at this time follow trend of hemodynamics (6) Anemia: Code(s): D64.9 - Anemia, unspecified Status: Chronic Assessment and Plan: probably due to DEVYN, underlying CKD, and associated malignancy follow trend of H/H PRBC transfusion per protocol consider Epogen during hospital stay (7) Generalized weakness: Code(s): R53.1 - Weakness Status: Acute Assessment and Plan: multifactorial: fungemia nausea and vomiting and associated volume depletion DEVYN versus CKD anemia underlying malignancy chemotherapy PT/OT as tolerated Will continue to follow. History of Present Illness Reason for Consult Consult date: 06/15/21 Reason for consult: chronic renal failure Chief Complaint Chief complaint: Troponin Elevation, Intractable Nausea & Vomiting History of Present Illness Narrative: The patient is a 60-year-old male with multiple medical problems who presented to [facility] Emergency room with complaints of nausea, vomiting, and generalized weakness. He states that over the past 3-4 days he has developed significant nausea with associated vomiting. he reports that he had recent chemotherapy approximately 3 weeks ago and had been doing fairly well up until the last 3 4 days when the aforementioned symptoms started. As the symptoms seem to be progressively getting worse, he presented to the ER for further evaluation Workup and evaluation emergency room demonstrated an elevated BUN and creatinine (60 and 3.4 respectively). From review of his records, when he was last hospitalized here, he was discharged with a creatinine of 4.0 mg/dL on the assumption that it would continue to improve with ongoing hydration and increased oral intake. However, the patient reported that these laboratory abnormalities were about his baseline. On exam his bladder felt a bit distended and was noted by imaging studies that this was indeed the case. However, the patient refused to [place] catheter placement. He gave no other symptoms with regard to dysuria, urgency, urinary incontinence and denies any fevers, chills, rhinorrhea, lightheadedness, or dizziness. He did receive IV fluids in the emergency room which reportedly made him feel better. Given these laboratory abnormalities and his constellation of symptoms as well as complex medical history, he w
--- NOTE | 2021-06-15 12:33 | PM.IMPN ---
Progress Note: A&P Assessment and Plan (1) Intractable vomiting with nausea: Code(s): R11.2 - Nausea with vomiting, unspecified Status: Acute Assessment and Plan: Etiology not entirely clear. His last chemotherapy was [address] of the abdomen and pelvis did not show any significant findings however his bladder was quite distended thus that may be causing some of his issue. Patient present with elevated BUN and creatinine at 68 and 4.4. He does carry a diagnosis of CKD baseline creatinine is unknown. His creatinine has been fluctuating over the past few weeks. He was in the 2s up to last December. He has been trending up. Consult nephrology. Continue supportive care including cautious IV fluid rehydration and antiemetics as needed. (2) Fungus infection in blood: Code(s): B49 - Unspecified mycosis Status: Acute Assessment and Plan: Fungal septicemia, CVC source REC Micafungin # 1 / -10 days. Must have CVC removal prior to cessation of antifungal, to be done here or at [facility]. (3) Elevated troponin: Code(s): R77.8 - Other specified abnormalities of plasma proteins Status: Acute Assessment and Plan: Patient has not had chest pain and did not ever complain of chest pain the ER. Troponins have been flat and are likely elevated in the setting of renal failure not indicative of acute coronary syndrome. (4) Dehydration: Code(s): E86.0 - Dehydration Status: Acute Assessment and Plan: Secondary to vomiting. Continue judicious IV fluid rehydration. (5) Elevated d-dimer: Code(s): R79.89 - Other specified abnormal findings of blood chemistry Status: Acute Assessment and Plan: D-dimer was markedly elevated. V/Q scan was nondiagnostic and he cannot have a CTA given his renal function. His history is not suspicious for pulmonary embolism. Right lower extremity Doppler without evidence of lower extremity DVT bilaterally. (6) Fever: Code(s): R50.9 - Fever, unspecified Status: Acute Assessment and Plan: Patient reports having a fever. Urinalysis and chest x-ray were unremarkable. He was swabbed for COVID in the emergency department and he will remain in isolation pending SARS-CoV-2 by PCR. (7) Chronic kidney disease: Code(s): N18.9 - Chronic kidney disease, unspecified Status: Acute Assessment and Plan: Acute non oliguric kidney injury with worsening creatinine since admission. Patient has a history of kidney cancer and has a single functional right kidney. Creatinine has increased from4.4-5.3. Nephrology is on board. Follow up with Nephrology recommendation. Please avoid additional nephrotoxic medication. Please the renally dose medication. Creatinine has been increasing over the last year. Urine output is adequate as 1.7 L. C follow-up nephrology recommendation. Limb alert. Preserve non dominant of for possible future access. Avoid IV line, PICC line in upper extremities in order to preserve vasculature, in a patient who may require renal replacement therapy in his lifetime.. Consider vein mapping as an outpatient. (8) Chronic obstructive pulmonary disease: Code(s): J44.9 - Chronic obstructive pulmonary disease, unspecified Status: Acute Assessment and Plan: No acute issues. (9) Tobacco dependence: Code(s): F17.200 - Nicotine dependence, unspecified, uncomplicated Status: Chronic Assessment and Plan: Nicotine patch will be made available for the patient per his request. (10) Hypertension: Code(s): I10 - Essential (primary) hypertension Status: Acute Assessment and Plan: Blood pressure is stable on review of previous labs. Current blood pressure 127/56. Subjective Date/time seen: 06/15/21 12:33 S: Patient was examined at the bedside. He is feeling a lot better. Oral intake is improved. He denies vomiting. I
[2021-06-15] MEDS: SODIUM CHLORIDE 0.9% IV 1,000 ML 75 ML IV CONT (12:53)
[2021-06-15 13:21] LABS: Anion Gap 13 mmol/L (8-16); Blood Urea Nitrogen 89 mg/dL (9-20); Calcium 8.2 mg/dL (8.4-10.2); Carbon Dioxide 22 mmol/L (22-30); Chloride 95 mmol/L (98-107); Estimated CRCL calculation 12 ml/min; Estimated Glomerular Filt Rate 11; Glucose 129 mg/dL (65-110); Potassium 3.7 mmol/L (3.4-5.0); Sodium 130 mmol/L (137-145)
--- NOTE | 2021-06-15 14:13 | WPDINFPN2 ---
Progress Note: A&P Assessment and Plan (1) Fungus infection in blood: Code(s): B49 - Unspecified mycosis Status: Acute Assessment and Plan: Fungal septicemia, CVC source REC Micafungin # 1 / 7-10 days. Must have CVC removal prior to cessation of antifungal, to be done here or at [facility]. Subjective Date/time seen: 06/15/21 14:13 Objective Data Vital Signs Vital Signs: Vital Signs - 24 hr 06/14/21 16:00 06/14/21 20:00 06/15/21 03:15 Temperature 36.6 C 36.8 C 35.8 C L Pulse Rate 76 65 70 Respiratory Rate 16 20 16 Blood Pressure 102/55 L 109/65 116/63 Pulse Oximetry 94 94 95 06/15/21 09:06 Temperature Pulse Rate 76 Respiratory Rate Blood Pressure Pulse Oximetry Intake/Output Intake/Output: Intake & Output 06/12/21 06/13/21 06/14/21 06/15/21 23:59 23:59 23:59 23:59 Intake Total 2620 1480 Output Total 1050 1225 Balance 1570 255 Meds/Results Medications: Active Medications Generic Name Dose Route Start Last Admin Trade Name Freq PRN Reason Stop Dose Admin Acetaminophen 650 mg 06/14/21 10:10 Acetaminophen 650 Mg Suppository RECTAL Q6H PRN Mild Pain (1-3) or Fever Acetaminophen 650 mg 06/14/21 10:10 Acetaminophen 325 Mg Tablet PO Q6H PRN Mild Pain (1-3) or Fever Hydrocodone Bitart/Acetaminophen 1 - 2 tab 06/14/21 08:11 06/15/21 00:12 Hydrocodone/Acetaminophen (*Crx) 10-325 Mg Tablet PO 2 tab QID PRN Administration Pain Albuterol 2 puff 06/14/21 08:11 Albuterol Sulfate (*Sp) Aerosol 1 Puff INHALATION QID PRN wheezing Alprazolam 1 mg 06/14/21 08:11 Alprazolam (*Crx) 0.5 Mg Tablet PO TID PRN Anxiety Aspirin 81 mg 06/14/21 08:00 06/15/21 09:05 Aspirin 81 Mg Chewable Tablet PO 81 mg DAILY@0800 CHANTELLE Administration Calcium Carbonate 500 mg 06/14/21 21:00 06/14/21 20:33 Calcium/Vitamin D 500 Mg Tablet PO 500 mg HS CHANTELLE Administration Carvedilol 12.5 mg 06/14/21 09:00 06/15/21 09:06 Carvedilol 12.5 Mg Tablet PO 12.5 mg BID CHANTELLE Administration Cyclobenzaprine HCl 10 mg 06/14/21 08:11 Cyclobenzaprine Hcl 10 Mg Tablet PO HS PRN muscle spasm Duloxetine HCl 30 mg 06/14/21 09:00 06/15/21 09:06 Duloxetine Hcl 30 Mg Capsule.Dr PO 30 mg DAILY CHANTELLE Administration Famotidine 20 mg 06/14/21 09:00 06/15/21 09:06 Famotidine 20 Mg/2 Ml Vial IV PUSH 20 mg DAILY CHANTELLE Administration Gabapentin 300 mg 06/14/21 09:00 06/15/21 12:50 Gabapentin 300 Mg Capsule PO 300 mg TID CHANTELLE Administration Sodium Chloride 1,000 mls @ 75 mls/hr 06/13/21 16:25 06/15/21 12:53 Normal Saline Iv IV CONT 75 mls/hr .[id number] CHANTELLE Administration Micafungin Sodium 100 mg/ 100 mls @ 100 mls/hr 06/15/21 06:00 06/15/21 06:01 Sodium Chloride IVPB 100 mls/hr Q24H CHANTELLE Administration Mirabegron 25 mg 06/14/21 09:00 06/15/21 09:05 Mirabegron 25 Mg Er Tablet PO 25 mg DAILY CHANTELLE Administration Nicotine 1 patch 06/14/21 00:30 06/15/21 09:06 Nicotine (*Pbkc) 21 Mg Patch TRANSDERM 1 patch QAM CHANTELLE Administration Non-Formulary Medication 4 mg 06/14/21 08:11 Naloxone [Narcan] EACH NARE Q3M PRN Opiate Reversal Non-Formulary Medication 1,600 ml 06/14/21 09:00 [id number]-[id number] IVPB 07/14/21 08:59 DAILY CHANTELLE Ondansetron HCl 4 mg 06/13/21 16:21 06/15/21 00:11 Ondansetron Inj 4 Mg/2 Ml Vial IV PUSH 4 mg Q4H PRN Administration Nausea Ondansetron HCl 4 mg 06/14/21 08:11 Ondansetron Hcl Odt 4 Mg Tablet PO Q8H PRN Nausea And Vomiting Prednisone 5 mg 06/14/21 09:00 06/15/21 09:06 Prednisone 5 Mg Tablet PO 5 mg BID CHANTELLE Administration Prochlorperazine Maleate 10 mg 06/14/21 08:11 Prochlorperazine Maleate 5 Mg Tablet PO Q6H PRN Nausea And Vomiting Fluticasone/Salmeterol 2 puff 06/14/21 08:25 Fluticasone/Salmeterol 115-21 Mcg Inhaler 1 P
[2021-06-15 14:46] LABS: Creatinine Urine 108.9 mg/dL
[2021-06-15 14:49] LABS: Sodium Urine Random 47 meq/L
[2021-06-15 15:11] VITALS: BP 127/56; PULSE 61; RESP 18; TEMP 36.4; O2SAT 97
[2021-06-15 18:18] VITALS: PULSE 68
--- NOTE | 2021-06-15 18:36 | CONS_ITS ---
DATE OF CONSULTATION: 06/15/2021 REASON FOR CONSULTATION: Fungal blood culture positive. HISTORY OF PRESENT ILLNESS: 60-year-old male who is on chronic TPN at night. He has had multiple IV catheters over time. He reports to me that they frequently become infected every 3 to 6 months. He gets such care at [facility] and I have not monitored him for bloodstream infections in the past. He presented to the hospital here 2 days ago with nausea, vomiting, and weakness. He was admitted. He has now been started on micafungin in response to positive blood cultures earlier this morning. No fever, chills, or sweats at home. He denies any malfunction of his central venous catheter, which sits in the right upper chest. ALLERGIES: OXYCODONE CAUSES AGITATION. PRESENT MEDICATIONS: List reviewed. No potent immunosuppressants other than prednisone 5 mg p.o. b.i.d. No recent antibiotics or other anti-infectives. PAST MEDICAL HISTORY: Extensive including colorectal cancer with previous colon resection, ileostomy, left [id number] amputation for gangrene, small bowel obstruction, lymphoma, peripheral vascular disease, peripheral neuropathy, prostate cancer, left nephrectomy partial for renal cancer, short-gut syndrome, multiple abdominal operations as listed, ureteral stent still in place, rotator cuff repairs, ORIF right wrist fracture. Remainder as per record. FAMILY HISTORY: Not pertinent to his present illness. SOCIAL HISTORY: He is . Lives locally with his . No family at the bedside. REVIEW OF SYSTEMS: 14-point review otherwise negative. PHYSICAL EXAMINATION: GENERAL: Middle-age male who appears older than his actual age. Fairly well nourished. No respiratory distress. VITAL SIGNS: His temperature early yesterday 38.1, otherwise afebrile, 70, 16, 116/63, 95%. SKIN: Warm and dry. No generalized rash. No fungal dermatitis. EENT: No thrush. The oropharynx, oral mucosa normal. Conjunctivae are normal. No paranasal sinus inflammation. NECK: No masses, thyromegaly or meningismus. LUNGS: Clear to auscultation and percussion. CARDIAC: Regular rate and rhythm without murmur, gallop, or rub. CHEST: Right infraclavicular dual lumen catheter is in place, which has the appearance of a PICC. There is no purulence, tenderness, or sign of tunnel infection. ABDOMEN: Firm. No masses. Nontender. Nondistended. EXTREMITIES: Without clubbing, cyanosis, or edema. LABORATORY DATA: His white blood cell count 7.5, hemoglobin 8.6, platelets are 158. His white count yesterday also normal. He has mild hyponatremia. BUN 89, creatinine 5.3 up from 3.4. Accu-Cheks variable. Liver function tests twice normal. CRP over 9. Urinalysis, multiple abnormalities, do not suggest infection. Coronavirus assay nonreactive. RADIOLOGY: Renal ultrasound normal other than absent left kidney. Chest, abdomen, pelvic CT and chest x-ray taken together showed nonspecific pneumonitis, distended bladder, right ureteral stent and postop changes, compression fractures, pain pump, prostate resection suspected. ASSESSMENT: 1. Fungal bloodstream infection with fungus isolated. No further identifications yet. This is the cause of his fever and gastrointestinal symptoms prior to admission. Other sources of his fungal infection less likely including mucosal, skin, primary bloodstream or other. I doubt this is a contaminant. I doubt urinary source, despite his CT findings. 2. Short-gut syndrome, chronic TPN, which puts him at high risk unfortunately for fungal CVC infection. 3. Multifocal prostate and other cancer in the past. RECOMMENDATIONS: 1. Micafungin appropriate. 2. Follow up on microbiology and if appropriate, fluconazole can be used ins
[2021-06-15] MEDS: ALPRAZolam (*CRX) 0.5 MG TABLET 1 MG PO (18:51)
[2021-06-15] MEDS: SERTRALINE HCL 50 MG TABLET 100 MG PO (20:30)
[2021-06-15] MEDS: CYCLOBENZAPRINE HCL 10 MG TABLET PO (20:33)
[2021-06-15 20:40] VITALS: BP 112/67; PULSE 61; RESP 16; TEMP 35.7; O2SAT 99
[2021-06-16] MEDS: HYDROcodone/acetaminophen (*CRX) 10-325 MG TABLET PO (01:07)
[2021-06-16] MEDS: SODIUM CHLORIDE 0.9% IV 1,000 ML 75 ML IV CONT ×2 (02:30→18:05)
[2021-06-16 04:59] VITALS: BP 124/58; PULSE 65; RESP 16; TEMP 36.6; O2SAT 95
[2021-06-16] MEDS: MICAFUNGIN SODIUM 100 MG in SODIUM CHLORIDE 0.9% IV 100 ML IVPB (05:00)
[2021-06-16] MEDS: CENTRAL LINE FLUSH 10 ML IV PUSH ×4 (05:00→20:36)
[2021-06-16] MEDS: CENTRAL LINE FLUSH 20 ML IV PUSH (05:00)
[2021-06-16 05:21] LABS: Hematocrit 21.8 % (42.0-52.0); Mean Corpuscular HGB Conc 32.1 g/dl (32-36); Mean Corpuscular Hemoglobin 25.6 pg (26-34); Mean Corpuscular Volume 79.9 fl (80-100); Mean Platelet Volume 11.8 fl (7.4-10.4); Platelet Count Result 161 k/mm3 (150-375); Red Blood Count 2.73 M/mm3 (4.6-6.20); Red Cell Distribution Width 17.7 % (11.5-14.5); White Blood Count 6.2 K/mm3 (4.5-10.0)
[2021-06-16 05:31] LABS: Anion Gap 10 mmol/L (8-16); Blood Urea Nitrogen 87 mg/dL (9-20); Calcium 7.8 mg/dL (8.4-10.2); Carbon Dioxide 24 mmol/L (22-30); Chloride 91 mmol/L (98-107); Estimated CRCL calculation 14 ml/min; Estimated Glomerular Filt Rate 12; Glucose 168 mg/dL (65-110); Potassium 3.7 mmol/L (3.4-5.0); Sodium 125 mmol/L (137-145)
[2021-06-16 06:22] LABS: Atypical Lymphocytes Present; Band Neutrophils Percent 3 % (0-6); Hypochromasia 2+ (NORMAL); Large Platelets Present; Lymphocytes Absolute Manual 1.48 K/mm3 (1.1-4.5); Monocytes Absolute Manual 0.12 K/mm3 (0.1-0.90); Monocytes Percent Manual 2 % (3-9); Neutrophils Absolute Manual 4.58 K/mm3 (1.3-6.7); Neutrophils Percent Manual 71 % (46-73); Platelet Estimate Adequate (Adequate); Total Cells Counted 100
[2021-06-16] MEDS: FAMOTIDINE 20 MG/2 ML VIAL IV PUSH (08:21)
[2021-06-16] MEDS: GABAPENTIN 300 MG CAPSULE PO ×3 (08:21→18:04)
[2021-06-16] MEDS: ASPIRIN 81 MG CHEWABLE TABLET PO (08:21)
[2021-06-16] MEDS: DULoxetine HCL 30 MG CAPSULE.DR PO (08:21)
[2021-06-16] MEDS: MIRABEGRON 25 MG ER TABLET PO (08:21)
[2021-06-16 08:22] VITALS: PULSE 72
[2021-06-16] MEDS: NICOTINE (*PBKC) 21 MG PATCH 1 PATCH TRANSDERM (08:22)
[2021-06-16] MEDS: predniSONE 5 MG TABLET PO ×2 (08:22→18:04)
[2021-06-16] MEDS: carvediloL 12.5 MG TABLET PO ×2 (08:22→18:04)
[2021-06-16] MEDS: ALPRAZolam (*CRX) 0.5 MG TABLET 1 MG PO ×2 (10:32→18:04)
[2021-06-16 12:49] LABS: Hematocrit 22.3 % (42.0-52.0); Hemoglobin 7.1 g/dL (14.0-18.0)
[2021-06-16 14:07] VITALS: BP 124/73; PULSE 69; RESP 16; TEMP 36.4; O2SAT 95
--- NOTE | 2021-06-16 15:59 | PM.IMPN ---
Progress Note: A&P Assessment and Plan (1) Intractable vomiting with nausea: Code(s): R11.2 - Nausea with vomiting, unspecified Status: Acute Assessment and Plan: Etiology not entirely clear. His last chemotherapy was [address] of the abdomen and pelvis did not show any significant findings however his bladder was quite distended thus that may be causing some of his issue. Patient present with elevated BUN and creatinine at 68 and 4.4. He does carry a diagnosis of CKD baseline creatinine is unknown. His creatinine has been fluctuating over the past few weeks. He was in the 2s up to last December. He has been trending up. Consult nephrology. Continue supportive care including cautious IV fluid rehydration and antiemetics as needed. (2) Fungus infection in blood: Code(s): B49 - Unspecified mycosis Status: Acute Assessment and Plan: Fungal septicemia, CVC source REC Micafungin # 1 / -10 days. Must have CVC removal prior to cessation of antifungal, to be done here or at [facility]. (3) Elevated troponin: Code(s): R77.8 - Other specified abnormalities of plasma proteins Status: Acute Assessment and Plan: Patient has not had chest pain and did not ever complain of chest pain the ER. Troponins have been flat and are likely elevated in the setting of renal failure not indicative of acute coronary syndrome. (4) Dehydration: Code(s): E86.0 - Dehydration Status: Acute Assessment and Plan: Secondary to vomiting. Continue judicious IV fluid rehydration. (5) Elevated d-dimer: Code(s): R79.89 - Other specified abnormal findings of blood chemistry Status: Acute Assessment and Plan: D-dimer was markedly elevated. V/Q scan was nondiagnostic and he cannot have a CTA given his renal function. His history is not suspicious for pulmonary embolism. Right lower extremity Doppler without evidence of lower extremity DVT bilaterally. (6) Fever: Code(s): R50.9 - Fever, unspecified Status: Acute Assessment and Plan: Patient reports having a fever. Urinalysis and chest x-ray were unremarkable. He was swabbed for COVID in the emergency department and he will remain in isolation pending SARS-CoV-2 by PCR. (7) Chronic kidney disease: Code(s): N18.9 - Chronic kidney disease, unspecified Status: Acute Assessment and Plan: Acute non oliguric kidney injury with worsening creatinine since admission. Patient has a history of kidney cancer and has a single functional right kidney. Creatinine has increased from4.4-5.3. Nephrology is on board. Follow up with Nephrology recommendation. Please avoid additional nephrotoxic medication. Please the renally dose medication. Creatinine has been increasing over the last year. Urine output is adequate as 1.7 L. C follow-up nephrology recommendation. Limb alert. Preserve non dominant of for possible future access. Avoid IV line, PICC line in upper extremities in order to preserve vasculature, in a patient who may require renal replacement therapy in his lifetime.. Consider vein mapping as an outpatient. (8) Chronic obstructive pulmonary disease: Code(s): J44.9 - Chronic obstructive pulmonary disease, unspecified Status: Acute Assessment and Plan: No acute issues. (9) Tobacco dependence: Code(s): F17.200 - Nicotine dependence, unspecified, uncomplicated Status: Chronic Assessment and Plan: Nicotine patch will be made available for the patient per his request. (10) Hypertension: Code(s): I10 - Essential (primary) hypertension Status: Acute Assessment and Plan: Blood pressure is stable on review of previous labs. Current blood pressure 127/56. Additional Plan 06/16/21 A patient receiving chemotherapy next dose due tomorrow Called to Dr. ESTRADA at [place] for possible transfer to his institution for ongoing
--- NOTE | 2021-06-16 16:04 | P.PNNP_ITS ---
Progress Note: A&P Assessment and Plan (1) DEVYN (acute kidney injury): Code(s): N17.9 - Acute kidney failure, unspecified Status: Acute Assessment and Plan: * no real improvement -- actually has worsened some * presumably due to volume depletion/dehydration and possibly urinary retention/obstruction (distended bladder on imaging) * evaluation to date * CT scan with distended bladder, with right ureteral stent in position * renal ultrasound with absent left kidney and no hydronephrosis in right kidney * urine electrolytes appear prerenal * gentle IVF hydration as tolerated * follow trend of repeat labs and UOP * given his recurrent DEVYN over multiple hospitalizations, he may just have a new baseline creatinine (2) Chronic kidney disease, stage IV (severe): Code(s): N18.4 - Chronic kidney disease, stage 4 (severe) Status: Chronic Assessment and Plan: * baseline creatinine had been running around 2.3 - 2.9mg/dl * presumably due to HTN, recurrent DEVYN, and decreased nephron mass (solitary kidney) (3) Intractable vomiting with nausea: Code(s): R11.2 - Nausea with vomiting, unspecified Status: Acute Assessment and Plan: * unclear etiology * possibly secondary to #4 (?) * continue supportive therapy (4) Fungus infection in blood: Code(s): B49 - Unspecified mycosis Status: Acute Assessment and Plan: * felt to be secondary to CVC * on antifungal therapy * Infectious Disease recommendations noted * will eventually need CVC removed (5) Hypertension: Code(s): I10 - Essential (primary) hypertension Status: Chronic Assessment and Plan: * reasonable control at this time * follow trend of hemodynamics (6) Anemia: Code(s): D64.9 - Anemia, unspecified Status: Chronic Assessment and Plan: * probably due to DEVYN, underlying CKD, and associated malignancy * follow trend of H/H * PRBC transfusion per protocol * consider Epogen during hospital stay (7) Generalized weakness: Code(s): R53.1 - Weakness Status: Acute Assessment and Plan: * multifactorial: * fungemia * nausea and vomiting and associated volume depletion * DEVYN versus CKD * anemia * underlying malignancy * chemotherapy * PT/OT as tolerated Will continue to follow - per patient request, attempts at transfer to [place] are ongoing. Subjective Date/time seen: 06/16/21 16:04 No apparent distress voiced at the time of my visit; somewhat sleepy and hard to keep awake (falls asleep during my conversation with him); seen by Infectious Disease with recommendations noted; requesting transfer to [facility] since most of his care is done there; no issues/events overnight or earlier this AM. Exam Narrative: General: ill appearing male in NAD Heart: normal S1 and S2; no rub Lungs: decreased at bases Abdomen: soft, nontender, nondistended, positive bowel sounds Extremities: no cyanosis or clubbing; no edema; s/l left AKA Skin: warm and dry Objective Data Vital Signs Vital Signs: Vital Signs Temp Pulse Resp BP Pulse Ox 06/16/21 14:07 36.4 C 69 16 124/73 95 06/16/21 08:22 72 06/16/21 04:59 36.6 C 65 16 124/58 L 95 06/15/21 20:40 35.7 C L 61 16 112/67 99 Intake/Output Intake/Output: I
--- NOTE | 2021-06-16 16:04 | PM.PNNEP ---
Progress Note: A&P Assessment and Plan (1) DEVYN (acute kidney injury): Code(s): N17.9 - Acute kidney failure, unspecified Status: Acute Assessment and Plan: no real improvement -- actually has worsened some presumably due to volume depletion/dehydration and possibly urinary retention/obstruction (distended bladder on imaging) evaluation to date CT scan with distended bladder, with right ureteral stent in position renal ultrasound with absent left kidney and no hydronephrosis in right kidney urine electrolytes appear prerenal gentle IVF hydration as tolerated follow trend of repeat labs and UOP given his recurrent DEVYN over multiple hospitalizations, he may just have a new baseline creatinine (2) Chronic kidney disease, stage IV (severe): Code(s): N18.4 - Chronic kidney disease, stage 4 (severe) Status: Chronic Assessment and Plan: baseline creatinine had been running around 2.3 - 2.9mg/dl presumably due to HTN, recurrent DEVYN, and decreased nephron mass (solitary kidney) (3) Intractable vomiting with nausea: Code(s): R11.2 - Nausea with vomiting, unspecified Status: Acute Assessment and Plan: unclear etiology possibly secondary to #4 (?) continue supportive therapy (4) Fungus infection in blood: Code(s): B49 - Unspecified mycosis Status: Acute Assessment and Plan: 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 Infectious Disease recommendations noted will eventually need CVC removed (5) Hypertension: Code(s): I10 - Essential (primary) hypertension Status: Chronic Assessment and Plan: reasonable control at this time follow trend of hemodynamics (6) Anemia: Code(s): D64.9 - Anemia, unspecified Status: Chronic Assessment and Plan: probably due to DEVYN, underlying CKD, and associated malignancy follow trend of H/H PRBC transfusion per protocol consider Epogen during hospital stay (7) Generalized weakness: Code(s): R53.1 - Weakness Status: Acute Assessment and Plan: multifactorial: fungemia nausea and vomiting and associated volume depletion DEVYN versus CKD anemia underlying malignancy chemotherapy PT/OT as tolerated Will continue to follow - per patient request, attempts at transfer to [place] are ongoing. Subjective Date/time seen: 06/16/21 16:04 No apparent distress voiced at the time of my visit; somewhat sleepy and hard to keep awake (falls asleep during my conversation with him); seen by Infectious Disease with recommendations noted; requesting transfer to [facility] since most of his care is done there; no issues/events overnight or earlier this AM. Exam Narrative: General: ill appearing male in NAD Heart: normal S1 and S2; no rub Lungs: decreased at bases Abdomen: soft, nontender, nondistended, positive bowel sounds Extremities: no cyanosis or clubbing; no edema; s/l left AKA Skin: warm and dry Objective Data Vital Signs Vital Signs: Vital Signs Temp Pulse Resp BP Pulse Ox 06/16/21 14:07 36.4 C 69 16 124/73 95 06/16/21 08:22 72 06/16/21 04:59 36.6 C 65 16 124/58 L 95 06/15/21 20:40 35.7 C L 61 16 112/67 99 Intake/Output Intake/Output: Intake & Output 06/13/21 06/14/21 06/15/21 06/16/21 23:59 23:59 23:59 23:59 Intake Total 2620 1940 2480 Output Total 1050 1525 2125 Balance 1570 415 355 Meds/Results Medications: Active Medications Generic Name Dose Route Start Last Admin Trade Name Freq PRN Reason Stop Dose Admin Acetaminophen 650 mg 06/14/21 10:10 Acetaminophen 650 Mg Suppository RECTAL Q6H PRN Mild Pain (1-3) or Fever Acetaminophen 650 mg 06/14/21 10:10 Acetaminophen 325 Mg Tablet PO Q6H PRN Mild Pain (1-3) or Fever Hydrocodone Bitart/Acetaminophen 1 - 2 tab 06/14/21 08:11 06/16/21 01:07 Hydrocodone/Acetaminophen
[2021-06-16 18:04] VITALS: PULSE 66
[2021-06-16 20:23] VITALS: BP 120/72; PULSE 93; RESP 16; TEMP 36.2; O2SAT 92
[2021-06-16] MEDS: SERTRALINE HCL 50 MG TABLET 100 MG PO (20:36)
--- NOTE | 2021-06-17 00:50 | PC.NURSE ---
[facility], [facility], CALLED TO UPDATE. NO AVAILABLE BEDS AT THIS TIME.
[2021-06-17 00:58] VITALS: O2SAT 94
[2021-06-17 04:24] VITALS: BP 145/68; PULSE 60; RESP 18; TEMP 36.4; O2SAT 93
[2021-06-17 04:47] LABS: Basophils Percent Auto 0.3 % (0.2-1.2); Eosinophils Percent Auto 0.7 % (0-4.4); Hematocrit 22.2 % (42.0-52.0); Hemoglobin 7.2 g/dL (14.0-18.0); Immature Granulocyte Absolute 0.07 K/mm3 (0.00-0.031); Immature Granulocyte Percent A 1.1 % (0-0.5); Lymphocytes Absolute Auto 1.39 K/mm3 (0.9-3.2); Lymphocytes Percent Auto 22.6 % (18.3-44.2); Mean Corpuscular HGB Conc 32.4 g/dl (32-36); Mean Corpuscular Hemoglobin 25.3 pg (26-34); Mean Corpuscular Volume 77.9 fl (80-100); Mean Platelet Volume 10.1 fl (7.4-10.4); Monocytes Absolute Auto 0.4 K/mm3 (0.1-0.6); Monocytes Percent Auto 5.9 % (2.6-8.5); Neutrophils Absolute Auto 4.3 K/mm3 (1.3-6.7); Neutrophils Percent Auto 69.4 % (45.5-73.1); Platelet Count Result 169 k/mm3 (150-375); Red Blood Count 2.85 M/mm3 (4.6-6.20); Red Cell Distribution Width 17.7 % (11.5-14.5); White Blood Count 6.2 K/mm3 (4.5-10.0)
[2021-06-17 04:59] LABS: Anion Gap 7 mmol/L (8-16); Blood Urea Nitrogen 80 mg/dL (9-20); Calcium 7.9 mg/dL (8.4-10.2); Carbon Dioxide 21 mmol/L (22-30); Chloride 100 mmol/L (98-107); Estimated CRCL calculation 16 ml/min; Estimated Glomerular Filt Rate 14; Glucose 105 mg/dL (65-110); Potassium 4.1 mmol/L (3.4-5.0); Sodium 128 mmol/L (137-145)
[2021-06-17 05:10] LABS: Atypical Lymphocytes Present; Large Platelets Present; Platelet Estimate Adequate (Adequate)
[2021-06-17] MEDS: SODIUM CHLORIDE 0.9% IV 1,000 ML 75 ML IV CONT (05:34)
[2021-06-17] MEDS: MICAFUNGIN SODIUM 100 MG in SODIUM CHLORIDE 0.9% IV 100 ML IVPB (05:34)
[2021-06-17] MEDS: CENTRAL LINE FLUSH 10 ML IV PUSH ×4 (05:37→20:16)
[2021-06-17 08:10] VITALS: PULSE 60
[2021-06-17] MEDS: carvediloL 12.5 MG TABLET PO ×2 (08:10→16:45)
[2021-06-17] MEDS: DULoxetine HCL 30 MG CAPSULE.DR PO (08:11)
[2021-06-17] MEDS: MIRABEGRON 25 MG ER TABLET PO (08:11)
[2021-06-17] MEDS: GABAPENTIN 300 MG CAPSULE PO ×3 (08:11→16:45)
[2021-06-17] MEDS: NICOTINE (*PBKC) 21 MG PATCH 1 PATCH TRANSDERM (08:11)
[2021-06-17] MEDS: FAMOTIDINE 20 MG/2 ML VIAL IV PUSH (08:11)
[2021-06-17] MEDS: ASPIRIN 81 MG CHEWABLE TABLET PO (08:11)
[2021-06-17] MEDS: predniSONE 5 MG TABLET PO ×2 (08:11→16:46)
[2021-06-17] MEDS: SCOPOLAMINE 1.5 MG PATCH 1 MG TRANSDERM (08:12)
[2021-06-17] MEDS: HYDROcodone/acetaminophen (*CRX) 10-325 MG TABLET PO ×2 (08:17→14:05)
[2021-06-17] MEDS: ALPRAZolam (*CRX) 0.5 MG TABLET 1 MG PO ×2 (10:24→16:44)
--- NOTE | 2021-06-17 13:29 | P.PNNP_ITS ---
Progress Note: A&P Assessment and Plan (1) DEVYN (acute kidney injury): Code(s): N17.9 - Acute kidney failure, unspecified Status: Acute Assessment and Plan: * no real improvement * presumably due to volume depletion/dehydration and possibly urinary retention/obstruction (distended bladder on imaging) * evaluation to date * CT scan with distended bladder, with right ureteral stent in position * renal ultrasound with absent left kidney and no hydronephrosis in right kidney * urine electrolytes appear prerenal * gentle IVF hydration as tolerated * follow trend of repeat labs and UOP * given his recurrent DEVYN over multiple hospitalizations, he may just have a new baseline creatinine (2) Chronic kidney disease, stage IV (severe): Code(s): N18.4 - Chronic kidney disease, stage 4 (severe) Status: Chronic Assessment and Plan: * baseline creatinine had been running around 2.3 - 2.9mg/dl * presumably due to HTN, recurrent DEVYN, and decreased nephron mass (solitary kidney) (3) Intractable vomiting with nausea: Code(s): R11.2 - Nausea with vomiting, unspecified Status: Acute Assessment and Plan: * unclear etiology * possibly secondary to #4 (?) * continue supportive therapy (4) Fungus infection in blood: Code(s): B49 - Unspecified mycosis Status: Acute Assessment and Plan: * felt to be secondary to CVC * on antifungal therapy * Infectious Disease recommendations noted * will eventually need CVC removed (5) Hypertension: Code(s): I10 - Essential (primary) hypertension Status: Chronic Assessment and Plan: * reasonable control at this time * follow trend of hemodynamics (6) Anemia: Code(s): D64.9 - Anemia, unspecified Status: Chronic Assessment and Plan: * probably due to DEVYN, underlying CKD, and associated malignancy * follow trend of H/H * PRBC transfusion per protocol * consider Epogen during hospital stay (7) Generalized weakness: Code(s): R53.1 - Weakness Status: Acute Assessment and Plan: * multifactorial: * fungemia * nausea and vomiting and associated volume depletion * DEVYN versus CKD * anemia * underlying malignancy * chemotherapy * PT/OT as tolerated Will continue to follow Subjective Date/time seen: 06/17/21 13:29 No real significant change noted at this time; no new issues/events noted overnight or earlier this morning; nausea/vomiting seems relatively stable; no acute distress or other acute complaints voiced; still awaiting possible transfer to [facility]. Exam Narrative: General: ill appearing male in NAD Heart: normal S1 and S2; no rub Lungs: decreased at bases Abdomen: soft, nontender, nondistended, positive bowel sounds Extremities: no cyanosis or clubbing; no edema; s/l left AKA Skin: warm and intact Objective Data Vital Signs Vital Signs: Vital Signs Temp Pulse Resp BP Pulse Ox 06/17/21 08:10 60 06/17/21 04:24 36.4 C 60 18 145/68 H 93 06/17/21 00:58 94 06/16/21 20:23 36.2 C L 93 16 120/72 92 06/16/21 18:04 66 Intake/Output Intake/Output: Intake & Output 06/14/21 06/15/21 06/16/21 06/17/21 23:59 23:59 23:59 23:59 Intake To
--- NOTE | 2021-06-17 13:29 | PM.PNNEP ---
Progress Note: A&P Assessment and Plan (1) DEVYN (acute kidney injury): Code(s): N17.9 - Acute kidney failure, unspecified Status: Acute Assessment and Plan: no real improvement presumably due to volume depletion/dehydration and possibly urinary retention/obstruction (distended bladder on imaging) evaluation to date CT scan with distended bladder, with right ureteral stent in position renal ultrasound with absent left kidney and no hydronephrosis in right kidney urine electrolytes appear prerenal gentle IVF hydration as tolerated follow trend of repeat labs and UOP given his recurrent DEVYN over multiple hospitalizations, he may just have a new baseline creatinine (2) Chronic kidney disease, stage IV (severe): Code(s): N18.4 - Chronic kidney disease, stage 4 (severe) Status: Chronic Assessment and Plan: baseline creatinine had been running around 2.3 - 2.9mg/dl presumably due to HTN, recurrent DEVYN, and decreased nephron mass (solitary kidney) (3) Intractable vomiting with nausea: Code(s): R11.2 - Nausea with vomiting, unspecified Status: Acute Assessment and Plan: unclear etiology possibly secondary to #4 (?) continue supportive therapy (4) Fungus infection in blood: Code(s): B49 - Unspecified mycosis Status: Acute Assessment and Plan: 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 Infectious Disease recommendations noted will eventually need CVC removed (5) Hypertension: Code(s): I10 - Essential (primary) hypertension Status: Chronic Assessment and Plan: reasonable control at this time follow trend of hemodynamics (6) Anemia: Code(s): D64.9 - Anemia, unspecified Status: Chronic Assessment and Plan: probably due to DEVYN, underlying CKD, and associated malignancy follow trend of H/H PRBC transfusion per protocol consider Epogen during hospital stay (7) Generalized weakness: Code(s): R53.1 - Weakness Status: Acute Assessment and Plan: multifactorial: fungemia nausea and vomiting and associated volume depletion DEVYN versus CKD anemia underlying malignancy chemotherapy PT/OT as tolerated Will continue to follow Subjective Date/time seen: 06/17/21 13:29 No real significant change noted at this time; no new issues/events noted overnight or earlier this morning; nausea/vomiting seems relatively stable; no acute distress or other acute complaints voiced; still awaiting possible transfer to [facility]. Exam Narrative: General: ill appearing male in NAD Heart: normal S1 and S2; no rub Lungs: decreased at bases Abdomen: soft, nontender, nondistended, positive bowel sounds Extremities: no cyanosis or clubbing; no edema; s/l left AKA Skin: warm and intact Objective Data Vital Signs Vital Signs: Vital Signs Temp Pulse Resp BP Pulse Ox 06/17/21 08:10 60 06/17/21 04:24 36.4 C 60 18 145/68 H 93 06/17/21 00:58 94 06/16/21 20:23 36.2 C L 93 16 120/72 92 06/16/21 18:04 66 Intake/Output Intake/Output: Intake & Output 06/14/21 06/15/21 06/16/21 06/17/21 23:59 23:59 23:59 23:59 Intake Total 2620 1940 2780 1780 Output Total 1050 1525 2425 1050 Balance 1570 415 355 730 Meds/Results Medications: Active Medications Generic Name Dose Route Start Last Admin Trade Name Freq PRN Reason Stop Dose Admin Acetaminophen 650 mg 06/14/21 10:10 Acetaminophen 650 Mg Suppository RECTAL Q6H PRN Mild Pain (1-3) or Fever Acetaminophen 650 mg 06/14/21 10:10 Acetaminophen 325 Mg Tablet PO Q6H PRN Mild Pain (1-3) or Fever Hydrocodone Bitart/Acetaminophen 1 - 2 tab 06/14/21 08:11 06/17/21 14:05 Hydrocodone/Acetaminophen (*Crx) 10-325 Mg Tablet PO 1 tab QID PRN Administration Pain Albuterol 2 puff 06/14/21 08:11 Albuterol Sulfate
[2021-06-17 15:44] VITALS: BP 118/63; PULSE 88; RESP 18; TEMP 36.5; O2SAT 98
[2021-06-17 16:45] VITALS: PULSE 69
--- NOTE | 2021-06-17 17:28 | PM.TDS ---
Transfer Discharge Sum: Prov Provider Date of admission: 06/15/21 11:19 Primary care physician: PHYSICIAN NOT ON STAFF Admitting clinician: Sunita Salter MD Consults: 06/14/21 Consult to Physician Routine Comment: Consulting Provider: Scout Driscoll media relations associate/MD group to consult: Dr Driscoll- notify in am Reason for consultation: fugnemia Has provider been notified: Yes Consult to Physician Routine Comment: spoke to exchange @4127 (ER,[place]) Consulting Provider: Wale Reynoso media relations associate/MD group to consult: Nephrology Reason for consultation: DEVYN versus worsening CKD. Has provider been notified: Yes DS: Admitting Diagnosis Discharge Date 06/17/21 Admitting Diagnosis (1) Intractable vomiting with nausea: Code(s): R11.2 - Nausea with vomiting, unspecified Status: Acute Assessment and Plan: Etiology not entirely clear. His last chemotherapy was [address] of the abdomen and pelvis did not show any significant findings however his bladder was quite distended thus that may be causing some of his issue. Uremia is also likely playing a factor. Continue supportive care including cautious IV fluid rehydration and antiemetics as needed. (2) Elevated troponin: Code(s): R77.8 - Other specified abnormalities of plasma proteins Status: Acute Assessment and Plan: Patient has not had chest pain and did not ever complain of chest pain the ER. Troponins have been flat and are likely elevated in the setting of renal failure not indicative of acute coronary syndrome. (3) Dehydration: Code(s): E86.0 - Dehydration Status: Acute Assessment and Plan: Secondary to vomiting. Continue judicious IV fluid rehydration. (4) Elevated d-dimer: Code(s): R79.89 - Other specified abnormal findings of blood chemistry Status: Acute Assessment and Plan: D-dimer was markedly elevated. V/Q scan was nondiagnostic and he cannot have a CTA given his renal function. His history is not suspicious for pulmonary embolism. Right lower extremity is not edematous or tender though given history of DVT will obtain ultrasounds. (5) Fever: Code(s): R50.9 - Fever, unspecified Status: Acute Assessment and Plan: Patient reports having a fever. Urinalysis and chest x-ray were unremarkable. He was swabbed for COVID in the emergency department and he will remain in isolation pending SARS-CoV-2 by PCR. (6) Chronic kidney disease: Code(s): N18.9 - Chronic kidney disease, unspecified Status: Acute Assessment and Plan: Creatinine has been increasing over the last year. Bladder today was markedly distended on imaging and I assume at least in some part this may be due to obstruction. At this time he is not allowing me to place a [place] catheter. (7) Chronic obstructive pulmonary disease: Code(s): J44.9 - Chronic obstructive pulmonary disease, unspecified Status: Acute Assessment and Plan: No acute issues. (8) Tobacco dependence: Code(s): F17.200 - Nicotine dependence, unspecified, uncomplicated Status: Chronic Assessment and Plan: Nicotine patch will be made available for the patient per his request. (9) Hypertension: Code(s): I10 - Essential (primary) hypertension Status: Acute Assessment and Plan: Blood pressure is stable on review of previous labs. DS: Discharge Diagnosis Discharge Diagnosis (1) Fungus infection in blood: Code(s): B49 - Unspecified mycosis Status: Acute (2) Elevated d-dimer: Code(s): R79.89 - Other specified abnormal findings of blood chemistry Status: Acute (3) Dehydration: Code(s): E86.0 - Dehydration Status: Acute (4) Chronic anemia: Code(s): D64.9 - Anemia, unspecified Status: Acute (5) Hyperlipidemia: Code(s): E78.5 - Hyperlipidemia, unspecified Status: Acute (6) Hyp
[2021-06-17 20:09] VITALS: BP 162/86; PULSE 69; RESP 20; TEMP 36.7; O2SAT 98
[2021-06-17] MEDS: SERTRALINE HCL 50 MG TABLET 100 MG PO (20:15)
--- NOTE | 2021-06-17 22:41 | PC.NURSE ---
[facility] CALLED FOR UPDATE ON PATIENT PICKUP. NEW ESTIMATED TIME OF 1109
== END 2021-06-17 23:30 | disposition short-term general hospital (02) | DRG 314 ==
LOC: ANHED 17:12 → ANHIMU 19:14 → ANH3MED 06-15 02:44
PROVIDERS: Emergency Medicine; Internal Medicine; Admitting Provider Internal Medicine; Emergency Provider Nurse Practitioner; Visit Provider Hospitalist
DX: T80.211A Bloodstream infection due to central venous catheter, initial encounter (principal); B37.7 Candidal sepsis; N18.4 Chronic kidney disease, stage 4 (severe); N17.9 Acute kidney failure, unspecified; C18.9 Malignant neoplasm of colon, unspecified; K91.2 Postsurgical malabsorption, not elsewhere classified; I12.9 Hypertensive chronic kidney disease with stage 1 through stage 4 chronic kidney disease, or unspecified chronic kidney disease; E86.0 Dehydration; Z20.822 Contact with and (suspected) exposure to COVID-19; J44.9 Chronic obstructive pulmonary disease, unspecified; E78.5 Hyperlipidemia, unspecified; F17.210 Nicotine dependence, cigarettes, uncomplicated; D63.1 Anemia in chronic kidney disease; I73.9 Peripheral vascular disease, unspecified; G62.9 Polyneuropathy, unspecified; Z86.718 Personal history of other venous thrombosis and embolism; Z89.612 Acquired absence of left leg above knee; Z85.46 Personal history of malignant neoplasm of prostate; Z85.53 Personal history of malignant neoplasm of renal pelvis; Z90.5 Acquired absence of kidney; Z90.49 Acquired absence of other specified parts of digestive tract; Z85.72 Personal history of non-Hodgkin lymphomas
CPT/HCPCS: 36415; 51701; 71045; 71250; 74176; 76775; 78580; 80048; 80053; 81001; 82550; 82570; 83605; 83615; 83690; 84300; 84484; 85014; 85018; 85025; 85380; 85610; 85730; 86140; 87040; 87106; 87186; 87426; 87804; 93005; 93970; 96361; 96365; 96374; 96375; 96376; 99285; A9270; A9540; C9803; G0378; J1170; J2248; J2405; J7030; J7512; U0003; U0005